=== PATIENT | female | born 1995 | race Caucasian/White ===

== ENCOUNTER 2017-02-21 04:57 | Emergency (ER) | payer BC ==
[2017-02-21 05:06] VITALS: TEMP 98.1
[2017-02-21] MEDS ORDERED: SODIUM CHLORIDE 0.9% 1,000 ML IV STA (05:23)
[2017-02-21] MEDS ORDERED: FAMOTIDINE 20 MG/2 ML VIAL IV STA (05:23)
--- NOTE | 2017-02-21 05:27 | ED ---
General Adult HPI - General Chief complaint: Chest Pain Stated complaint: Abdominal pain, chest pain Time Seen by Provider: 02/21/17 05:19 Source: patient, RN notes reviewed Mode of arrival: ambulatory Limitations: no limitations - History of Present Illness Initial comments: Patient is a pleasant 21-year-old female presenting to the emergency Department with palpitations and chest and abdominal discomfort. Symptoms have been waxing and waning for the past 3 days. Symptoms are mild at this time. Patient does feel her heart racing at times. Patient states sometimes this lasted couple hours. Patient has chest discomfort in her left upper chest that is also intermittent. Discomfort mild at this time. Patient has diffuse abdominal discomfort that has also been waxing and waning and is also mild at this time. No nausea vomiting. No fever. No constipation or diarrhea. No history of similar symptoms previously. - Related Data Home Medications Medication Instructions Recorded Confirmed Norgestimate-Ethinyl Estradiol 1 tab PO DAILY 05/09/15 05/09/15 [Sprintec 28 Day Tablet] Allergies Allergy/AdvReac Type Severity Reaction Status Date / Time latex Allergy Rash/Hives Verified 02/21/17 05:06 Review of Systems ROS Statement: Those systems with pertinent positive or pertinent negative responses have been documented in the HPI. ROS Other: All systems not noted in ROS Statement are negative. Constitutional: Denies: fever Eyes: Denies: eye pain ENT: Denies: ear pain Respiratory: Denies: cough, dyspnea Cardiovascular: Reports: chest pain Endocrine: Denies: fatigue Gastrointestinal: Reports: abdominal pain. Denies: nausea, vomiting Genitourinary: Denies: dysuria Musculoskeletal: Denies: back pain Skin: Denies: rash Neurological: Denies: weakness Past Medical History Past Medical History: No Reported History History of Any Multi-Drug Resistant Organisms: None Reported Past Surgical History: No Surgical Hx Reported Past Psychological History: Anxiety, Depression Smoking Status: Former smoker Past Alcohol Use History: None Reported Past Drug Use History: None Reported General Exam Limitations: no limitations General appearance: alert, in no apparent distress Head exam: Present: atraumatic Eye exam: Present: normal appearance, PERRL ENT exam: Present: normal oropharynx Neck exam: Present: normal inspection Respiratory exam: Present: normal lung sounds bilaterally Cardiovascular Exam: Present: regular rate, normal rhythm Expanded Peripheral pulses: 2+: Radial (R), Radial (L), Dorsalis Pedis (R), Dorsalis Pedis (L) GI/Abdominal exam: Present: soft, tenderness (Mild diffuse tenderness to palpation), normal bowel sounds. Absent: distended, guarding, rebound, rigid, pulsatile mass Expanded GI/Abdominal exam: Absent: obturator sign Extremities exam: Present: normal inspection Neurological exam: Present: alert Psychiatric exam: Present: normal affect, normal mood Skin exam: Present: normal color Course Vital Signs 02/21/17 05:02 Temperature 98.1 F Pulse Rate 75 Respiratory 18 Rate Blood Pressure 118/76 O2 Sat by Pulse 100 Oximetry EKG Findings - EKG Comments: EKG Findings:: Normal sinus rhythm at 76. AR 134. QRS 112. QT 352. QTc 396. Normal axis. Normal QRS. No acute ST change. Medical Decision Making - Medical Decision Making Patient reexamined and resting comfortably in bed. No discomfort at this time. Abdomen is soft and nontender. Patient updated on results and need for follow -up. - Lab Data Result diagrams: 02/21/17 05:29 02/21/17 05:29 Lab Results 02/21/17 02/21/17 02/21/17 Range/Units 05:29 05:29 05:29 WBC 7.8 (4.0-11.0) k/uL RBC 4.32 (3.80-5.40) m/uL Hgb 13.2 (11.4-16.0) gm/dL Hct 39.4 (34.0-46.0) % MCV 91.2 (80.0-100.0) fL MCH 30.5 (25.0-35.0) pg MCHC 33.4 (31.0-37.0) g/dL RDW 12.2 (11.5-15.5) % Plt Count 251 (150-450) k/uL Neutrophils % 62 % Lymphocytes % 30 % Monocytes % 5 % Eosinophils % 1 % Basophils % 0 % Neutrophils # 4.8 (1.3-7.7) k/uL Lymphocytes # 2.3 (1.0-4.8) k/uL Monocytes # 0.4 (0-1.0) k/uL Eosinophils # 0.1 (0-0.7) k/uL Basophils # 0.0 (0-0.2) k/uL Sodium 141 (137-145) mmol/L Potassium 4.0 (3.5-5.1) mmol/L Chloride 104 (98-107) mmol/L Carbon Dioxide 26 (22-30) mmol/L Anion Gap 11 mmol/L BUN 20 H (7-17) mg/dL Creatinine 0.90 (0.52-1.04) mg/dL Est GFR (MDRD) Af Amer >60 (>60 ml/min/1.73 sqM) Est GFR (MDRD) Non-Af >60 (>60 ml/min/1.73 sqM) Glucose 98 (74-99) mg/dL Calcium 9.3 (8.4-10.2) mg/dL Total Bilirubin 0.2 (0.2-1.3) mg/dL AST 16 (14-36) U/L ALT 29 (9-52) U/L Alkaline Phosphatase 50 (38-126) U/L Total Creatine Kinase 64 (30-135) U/L CK-MB (CK-2) 0.3 (0.0-2.4) ng/mL CK-MB (CK-2) Rel Index 0.5 Troponin I <0.012 (0.000-0.034) ng/mL Total Protein 6.9 (6.3-8.2) g/dL Albumin 4.3 (3.5-5.0) g/dL Amylase 94 (30-110) U/L Lipase 130 (23-300) U/L Urine Color Urine Appearance (Clear) Urine pH (5.0-8.0) Ur Specific [place] (1.001-1.035) Urine Protein (Negative) Urine Glucose (UA) (Negative) Urine Ketones (Negative) Urine Blood (Negative) Urine Nitrite (Negative) Urine Bilirubin (Negative) Urine Urobilinogen (<2.0) mg/dL Ur Leukocyte Esterase (Negative) Urine RBC (0-5) /hpf Urine WBC (0-5) /hpf Ur Squamous Epith Cells (0-4) /hpf Urine Bacteria (None) /hpf Urine Mucus (None) /hpf Urine HCG, Qual (Not Detectd) 02/21/17 02/21/17 Range/Units 05:29 05:29 WBC (4.0-11.0) k/uL RBC (3.80-5.40) m/uL Hgb (11.4-16.0) gm/dL Hct (34.0-46.0) % MCV (80.0-100.0) fL MCH (25.0-35.0) pg MCHC (31.0-37.0) g/dL RDW (11.5-15.5) % Plt Count (150-450) k/uL Neutrophils % % Lymphocytes % % Monocytes % % Eosinophils % % Basophils % % Neutrophils # (1.3-7.7) k/uL Lymphocytes # (1.0-4.8) k/uL Monocytes # (0-1.0) k/uL Eosinophils # (0-0.7) k/uL Basophils # (0-0.2) k/uL Sodium (137-145) mmol/L Potassium (3.5-5.1) mmol/L Chloride (98-107) mmol/L Carbon Dioxide (22-30) mmol/L Anion Gap mmol/L BUN (7-17) mg/dL Creatinine (0.52-1.04) mg/dL Est GFR (MDRD) Af Amer (>60 ml/min/1.73 sqM) Est GFR (MDRD) Non-Af (>60 ml/min/1.73 sqM) Glucose (74-99) mg/dL Calcium (8.4-10.2) mg/dL Total Bilirubin (0.2-1.3) mg/dL AST (14-36) U/L ALT (9-52) U/L Alkaline Phosphatase (38-126) U/L Total Creatine Kinase (30-135) U/L CK-MB (CK-2) (0.0-2.4) ng/mL CK-MB (CK-2) Rel Index Troponin I (0.000-0.034) ng/mL Total Protein (6.3-8.2) g/dL Albumin (3.5-5.0) g/dL Amylase (30-110) U/L Lipase (23-300) U/L Urine Color Yellow Urine Appearance Cloudy H (Clear) Urine pH 6.0 (5.0-8.0) Ur Specific [place] 1.026 (1.001-1.035) Urine Protein Trace H (Negative) Urine Glucose (UA) Negative (Negative) Urine Ketones Negative (Negative) Urine Blood Moderate H (Negative) Urine Nitrite Negative (Negative) Urine Bilirubin Negative (Negative) Urine Urobilinogen 2.0 (<2.0) mg/dL Ur Leukocyte Esterase Small H (Negative) Urine RBC 6 H (0-5) /hpf Urine WBC 13 H (0-5) /hpf Ur Squamous Epith Cells 38 H (0-4) /hpf Urine Bacteria Rare H (None) /hpf Urine Mucus Many H (None) /hpf Urine HCG, Qual Not Detected (Not Detectd) - Radiology Data Radiology results: image reviewed (Abdominal x-ray shows some increased stool, nonobstructive. Chest x-ray shows no acute process.) Disposition Clinical Impression: Chest pain, Abdominal pain, Palpitations Disposition: HOME SELF-CARE Condition: Stable Instructions: Abdominal Pain (ED), Chest Pain (ED), Palpitations (ED) Additional Instructions: Please follow-up with your doctor in the next day or 2 for recheck. Return for increased pain, increased heart rate, difficult to breathing, worsening symptoms or other concerns. Referrals: Mariana Bass DO [Primary Care Provider] - 1-2 days Time of Disposition: 06:45
[2017-02-21 05:48] LABS: Basophils % (A) 0 %; Eosinophils # (A) 0.1 k/uL (0-0.7); Eosinophils % (A) 1 %; HCT 39.4 % (34.0-46.0); HGB 13.2 gm/dL (11.4-16.0); Lymphocytes # (A) 2.3 k/uL (1.0-4.8); Lymphocytes % (A) 30 %; MCH 30.5 pg (25.0-35.0); MCHC 33.4 g/dL (31.0-37.0); MCV 91.2 fL (80.0-100.0); Mean Platelet Volume 7.8; Monocytes # (A) 0.4 k/uL (0-1.0); Monocytes % (A) 5 %; Neutrophils # (A) 4.8 k/uL (1.3-7.7); Neutrophils % (A) 62 %; Platelet Count 251 k/uL (150-450); RBC 4.32 m/uL (3.80-5.40); RDW 12.2 % (11.5-15.5); WBC 7.8 k/uL (4.0-11.0)
[2017-02-21 05:52] LABS: Appearance,Urine Cloudy (Clear); Bacteria,Urine Rare /hpf; Bilirubin,Urine Negative (Negative); Blood,Urine Moderate (Negative); Color,Urine Yellow; Glucose,Urine (UA) Negative (Negative); Ketones,Urine Negative (Negative); Leukocyte Esterase,Urine Small (Negative); Mucus,Urine Many /hpf; Nitrite,Urine Negative (Negative); Protein,Urine Trace (Negative); RBC,Urine 6 /hpf (0-5); Specific Gravity,Urine 1.026 (1.001-1.035); Squamous Epithelial Cell,Urine 38 /hpf (0-4); WBC,Urine 13 /hpf (0-5)
[2017-02-21 05:56] LABS: ALT 29 U/L (9-52); AST 16 U/L (14-36); Albumin 4.3 g/dL (3.5-5.0); Alkaline Phosphatase 50 U/L (38-126); Amylase 94 U/L (30-110); Anion Gap 11 mmol/L; Blood Urea Nitrogen 20 mg/dL (7-17); Calcium 9.3 mg/dL (8.4-10.2); Carbon Dioxide 26 mmol/L (22-30); Chloride 104 mmol/L (98-107); Glucose 98 mg/dL (74-99); Lipase 130 U/L (23-300); Sodium 141 mmol/L (137-145); Total Bilirubin 0.2 mg/dL (0.2-1.3); Total Protein 6.9 g/dL (6.3-8.2)
[2017-02-21 06:10] LABS: Creatine Kinase 64 U/L (30-135)
[2017-02-21 06:23] LABS: Creatine Kinase MB 0.3 ng/mL (0.0-2.4); Troponin I <0.012 ng/mL (0.000-0.034)
--- NOTE | 2017-02-21 06:33 | XR ---
EXAM: XR Chest, 2 Views CLINICAL HISTORY: Chest pain. TECHNIQUE: Frontal and lateral views of the chest. COMPARISON: None. FINDINGS: Lungs: Unremarkable. No consolidation. Pleural space: Unremarkable. No pleural effusions. No pneumothorax. Heart: Unremarkable. No cardiomegaly. Mediastinum: Unremarkable. Bones/joints: Unremarkable. IMPRESSION: No acute cardiopulmonary process.
--- NOTE | 2017-02-21 06:35 | XR ---
EXAM: XR Abdomen, 1 View CLINICAL HISTORY: Reason: abdominal pain TECHNIQUE: Frontal supine view of the abdomen/pelvis. COMPARISON: October 29, 2014. FINDINGS: Gastrointestinal tract: No free air. Increased fecal burden in the lower abdomen and pelvis with mild gaseous distention of colon. No radiographic evidence for dilated small bowel loops. Bones/joints: Unremarkable. IMPRESSION: No free air. Increased fecal burden in the lower abdomen and pelvis with gaseous distention of colonic loops. No definite radiographic evidence for small bowel obstruction.
[2017-02-21 06:44] LABS: INR 1.1 (<1.2); Partial Thromboplastin Time 25.1 sec (22.0-30.0)
[2017-02-21 07:20] VITALS: BP 103/80; PULSE 85; RESP 17
== END 2017-02-21 07:20 | disposition home or self-care (01) ==
LOC: EC 04:57
DX: R00.2 Palpitations (principal); R10.9 Unspecified abdominal pain; R07.89 Other chest pain; Z87.891 Personal history of nicotine dependence; Z79.3 Long term (current) use of hormonal contraceptives; Z91.040 Latex allergy status
CPT/HCPCS: 36415; 71046; 74018; 80053; 81001; 81025; 82150; 82550; 82553; 83690; 84484; 85025; 85610; 85730; 93005; 96361; 96374; 99285

== ENCOUNTER 2017-03-25 23:01 | Emergency (ER) | payer BC ==
[2017-03-25] MEDS ORDERED: SODIUM CHLORIDE 0.9% 1,000 ML IV STA (23:13)
[2017-03-25] MEDS ORDERED: RX INFO: IV CONTRAST WAS GIVEN 1 EACH MISC MISCELLANE PRN (23:13)
--- NOTE | 2017-03-25 23:20 | ED ---
General Adult HPI - General Chief complaint: Urogenital Stated complaint: Abdomial Pain Time Seen by Provider: 03/25/17 23:09 Source: patient, RN notes reviewed Mode of arrival: wheelchair Limitations: no limitations - History of Present Illness Initial comments: 21-year-old female presents to the emergency department with a chief complaint of right-sided abdominal pain as well as vaginal discharge. Patient states that she received her doctor shot about 2 weeks ago. Patient states that her pain has been moderate. She states the throbbing type pain. She denies any nausea vomiting any fever chills with this. She denies any cough cold or runny nose. She denies any history of this in the past. They're concerned due to her continued pain so she thought she no surgical history. She does not concern for STDs this time. Patient denies any recent fever, chills, shortness of breath, chest pain, back pain, nausea vomiting, numbness or tingling, dysuria or hematuria, constipation or diarrhea, headaches or visual changes, or any other current symptoms. - Related Data Home Medications Medication Instructions Recorded Confirmed medroxyPROGESTERone [Depo-Provera] 150 mg IM Q90D 03/25/17 03/25/17 Allergies Allergy/AdvReac Type Severity Reaction Status Date / Time latex Allergy Rash/Hives Verified 03/25/17 23:14 Review of Systems ROS Statement: Those systems with pertinent positive or pertinent negative responses have been documented in the HPI. ROS Other: All systems not noted in ROS Statement are negative. Past Medical History Past Medical History: No Reported History History of Any Multi-Drug Resistant Organisms: None Reported Past Surgical History: No Surgical Hx Reported Past Psychological History: Anxiety, Depression Smoking Status: Former smoker Past Alcohol Use History: None Reported Past Drug Use History: None Reported General Exam - General Exam Comments Initial Comments: General: The patient is awake and alert, in no distress, and does not appear acutely ill. Eye: Pupils are equal, round and reactive to light, extra-ocular movements are intact; there is normal conjunctiva bilaterally. No signs of icterus. Ears, nose, mouth and throat: There are moist mucous membranes. Neck: The neck is supple, there is no tenderness. Cardiovascular: There is a regular rate and rhythm. No murmur, rub or gallop is appreciated. Respiratory: Lungs are clear to auscultation, respirations are non-labored, breath sounds are equal. No wheezes, stridor, rales, or rhonchi. Gastrointestinal: Soft, non-distended, non-tender abdomen without masses or organomegaly noted. There is no rebound or guarding present. No CVA tenderness. Bowel sounds are unremarkable. Back: There is no tenderness to palpation in the midline. There is no obvious deformity. No rashes noted. Musculoskeletal: Normal ROM, no tenderness, There is no pedal edema. There is no calf tenderness or swelling. Sensation intact. Pulses equal bilaterally 2+. Neurological: CN II-XII intact, There are no obvious motor or sensory deficits. Coordination appears grossly intact. Speech is normal. Skin: Skin is warm and dry and no rashes or lesions are noted. Psychiatric: Cooperative, appropriate mood & affect, normal judgment. Limitations: no limitations Course Vital Signs 03/25/17 23:03 Temperature 97.4 F L Pulse Rate 79 Respiratory 16 Rate Blood Pressure 127/82 O2 Sat by Pulse 100 Oximetry - Reevaluation(s) Reevaluation #1: 03/25/17 23:34 I did discuss thoroughly that I like to do pelvic exam to further evaluate the patient's discharge the patient refuses neurologist. She states that she does not want to have a pelvic exam and she was seen her own doctor for discharge. She just like her abdominal pain with This time. Medical Decision Making - Medical Decision Making 21-year-old female presents with right-sided abdominal pain. At this time patient's CAT scan is reviewed that does appear to show pancreatic hypertrophy. We discussed needs close follow-up with GI and she is given their information. We also discussed that she is to follow-up with her family care doctor regarding her vaginal discharge to the fact that she would not further evaluate this. Patient stated that she understood. All questions have been answered. She will be discharged. - Lab Data Result diagrams: 03/25/17 23:25 03/25/17 23:25 Lab Results 03/25/17 03/25/17 03/25/17 Range/Units 23:25 23:25 23:25 WBC 8.1 (4.0-11.0) k/uL RBC 4.69 (3.80-5.40) m/uL Hgb 14.4 (11.4-16.0) gm/dL Hct 42.5 (34.0-46.0) % MCV 90.7 (80.0-100.0) fL MCH 30.8 (25.0-35.0) pg MCHC 33.9 (31.0-37.0) g/dL RDW 12.5 (11.5-15.5) % Plt Count 279 (150-450) k/uL Neutrophils % 58 % Lymphocytes % 34 % Monocytes % 4 % Eosinophils % 2 % Basophils % 0 % Neutrophils # 4.7 (1.3-7.7) k/uL Lymphocytes # 2.8 (1.0-4.8) k/uL Monocytes # 0.3 (0-1.0) k/uL Eosinophils # 0.2 (0-0.7) k/uL Basophils # 0.0 (0-0.2) k/uL Sodium 142 (137-145) mmol/L Potassium 4.1 (3.5-5.1) mmol/L Chloride 103 (98-107) mmol/L Carbon Dioxide 25 (22-30) mmol/L Anion Gap 14 mmol/L BUN 14 (7-17) mg/dL Creatinine 0.90 (0.52-1.04) mg/dL Est GFR (MDRD) Af Amer >60 (>60 ml/min/1.73 sqM) Est GFR (MDRD) Non-Af >60 (>60 ml/min/1.73 sqM) Glucose 105 H (74-99) mg/dL Calcium 9.8 (8.4-10.2) mg/dL Total Bilirubin 0.2 (0.2-1.3) mg/dL AST 14 (14-36) U/L ALT 17 (9-52) U/L Alkaline Phosphatase 51 (38-126) U/L Total Protein 7.2 (6.3-8.2) g/dL Albumin 4.5 (3.5-5.0) g/dL Amylase 96 (30-110) U/L Lipase 207 (23-300) U/L Urine Color Urine Appearance (Clear) Urine pH (5.0-8.0) Ur Specific [place] (1.001-1.035) Urine Protein (Negative) Urine Glucose (UA) (Negative) Urine Ketones (Negative) Urine Blood (Negative) Urine Nitrite (Negative) Urine Bilirubin (Negative) Urine Urobilinogen (<2.0) mg/dL Ur Leukocyte Esterase (Negative) Urine RBC (0-5) /hpf Urine WBC (0-5) /hpf Ur Squamous Epith Cells (0-4) /hpf Urine Mucus (None) /hpf Urine HCG, Qual Not Detected (Not Detectd) 03/25/17 Range/Units 23:25 WBC (4.0-11.0) k/uL RBC (3.80-5.40) m/uL Hgb (11.4-16.0) gm/dL Hct (34.0-46.0) % MCV (80.0-100.0) fL MCH (25.0-35.0) pg MCHC (31.0-37.0) g/dL RDW (11.5-15.5) % Plt Count (150-450) k/uL Neutrophils % % Lymphocytes % % Monocytes % % Eosinophils % % Basophils % % Neutrophils # (1.3-7.7) k/uL Lymphocytes # (1.0-4.8) k/uL Monocytes # (0-1.0) k/uL Eosinophils # (0-0.7) k/uL Basophils # (0-0.2) k/uL Sodium (137-145) mmol/L Potassium (3.5-5.1) mmol/L Chloride (98-107) mmol/L Carbon Dioxide (22-30) mmol/L Anion Gap mmol/L BUN (7-17) mg/dL Creatinine (0.52-1.04) mg/dL Est GFR (MDRD) Af Amer (>60 ml/min/1.73 sqM) Est GFR (MDRD) Non-Af (>60 ml/min/1.73 sqM) Glucose (74-99) mg/dL Calcium (8.4-10.2) mg/dL Total Bilirubin (0.2-1.3) mg/dL AST (14-36) U/L ALT (9-52) U/L Alkaline Phosphatase (38-126) U/L Total Protein (6.3-8.2) g/dL Albumin (3.5-5.0) g/dL Amylase (30-110) U/L Lipase (23-300) U/L Urine Color Light Yellow Urine Appearance Clear (Clear) Urine pH 6.5 (5.0-8.0) Ur Specific [place] 1.015 (1.001-1.035) Urine Protein Negative (Negative) Urine Glucose (UA) Negative (Negative) Urine Ketones Negative (Negative) Urine Blood Negative (Negative) Urine Nitrite Negative (Negative) Urine Bilirubin Negative (Negative) Urine Urobilinogen <2.0 (<2.0) mg/dL Ur Leukocyte Esterase Moderate H (Negative) Urine RBC 2 (0-5) /hpf Urine WBC 7 H (0-5) /hpf Ur Squamous Epith Cells 5 H (0-4) /hpf Urine Mucus Rare H (None) /hpf Urine HCG, Qual (Not Detectd) - Radiology Data Radiology results: report reviewed, image reviewed Disposition Clinical Impression: Pancreatic hypertrophy, Vaginal discharge Disposition: HOME SELF-CARE Condition: Stable Instructions: Abdominal Pain (ED) Additional Instructions: Please use medication as discussed. Please follow up with family doctor if symptoms have not improved over the next two days. Please return to the emergency room if your symptoms increase or worsen or for any other concerns. Referrals: Mariana Bass DO [Primary Care Provider] - 1-2 days Christian Leonard MD [STAFF PHYSICIAN] - 1-2 days Time of Disposition: 00:46
[2017-03-25 23:34] LABS: Basophils % (A) 0 %; Eosinophils # (A) 0.2 k/uL (0-0.7); Eosinophils % (A) 2 %; HCT 42.5 % (34.0-46.0); HGB 14.4 gm/dL (11.4-16.0); Lymphocytes # (A) 2.8 k/uL (1.0-4.8); Lymphocytes % (A) 34 %; MCH 30.8 pg (25.0-35.0); MCHC 33.9 g/dL (31.0-37.0); MCV 90.7 fL (80.0-100.0); Mean Platelet Volume 7.3; Monocytes # (A) 0.3 k/uL (0-1.0); Monocytes % (A) 4 %; Neutrophils # (A) 4.7 k/uL (1.3-7.7); Neutrophils % (A) 58 %; Platelet Count 279 k/uL (150-450); RBC 4.69 m/uL (3.80-5.40); RDW 12.5 % (11.5-15.5); WBC 8.1 k/uL (4.0-11.0)
[2017-03-25 23:41] LABS: Appearance,Urine Clear (Clear); Bilirubin,Urine Negative (Negative); Blood,Urine Negative (Negative); Color,Urine Light Yellow; Glucose,Urine (UA) Negative (Negative); Ketones,Urine Negative (Negative); Leukocyte Esterase,Urine Moderate (Negative); Mucus,Urine Rare /hpf; Nitrite,Urine Negative (Negative); PH, Urine 6.5 (5.0-8.0); Protein,Urine Negative (Negative); RBC,Urine 2 /hpf (0-5); Specific Gravity,Urine 1.015 (1.001-1.035); Squamous Epithelial Cell,Urine 5 /hpf (0-4); Urobilinogen,Urine <2.0 mg/dL (<2.0); WBC,Urine 7 /hpf (0-5)
[2017-03-25 23:48] LABS: ALT 17 U/L (9-52); AST 14 U/L (14-36); Albumin 4.5 g/dL (3.5-5.0); Alkaline Phosphatase 51 U/L (38-126); Amylase 96 U/L (30-110); Anion Gap 14 mmol/L; Blood Urea Nitrogen 14 mg/dL (7-17); Calcium 9.8 mg/dL (8.4-10.2); Carbon Dioxide 25 mmol/L (22-30); Chloride 103 mmol/L (98-107); Glucose 105 mg/dL (74-99); Lipase 207 U/L (23-300); Potassium 4.1 mmol/L (3.5-5.1); Sodium 142 mmol/L (137-145); Total Bilirubin 0.2 mg/dL (0.2-1.3); Total Protein 7.2 g/dL (6.3-8.2)
--- NOTE | 2017-03-26 00:26 | CT ---
EXAMINATION TYPE: CT abdomen pelvis wo con DATE OF EXAM: 03/26/2017 COMPARISON: NONE HISTORY: Right flank pain CT DLP: 230.10 mGycm Automated exposure control for dose reduction was used. TECHNIQUE: Helical acquisition of images was performed from the lung bases through the pelvis. Lung bases are clear. There is no pleural effusion. Heart size is normal. Liver and spleen appear normal. There appears to be some hypertrophy of the pancreas. I see no discre te pancreatic mass. Exam is limited by lack of IV contrast. Bile ducts are not dilated. There is no adrenal mass. Kidneys have normal size and contour. There is no hydronephrosis. There is no retroperitoneal adenopathy. There is no ascites. Appendix is not seen. There is no sign of appendi citis. I see no intestinal wall thickening. There are no dilated loops. Uterus is retroverted. There is no s ign of free air. Bladder distends smoothly. There is no sign of a pelvic mass. Bony structures are in tact. IMPRESSION: PANCREAS IS PROMINENT AND PROBABLY DUE TO HYPERTROPHY. NO DILATED DUCTS. NO EVIDENCE OF RENAL STONE O R OBSTRUCTION. I DO NOT SEE A CAUSE FOR RIGHT FLANK PAIN.
[2017-03-26 00:45] VITALS: BP 111/52; PULSE 77; RESP 18; TEMP 98.1
== END 2017-03-26 00:54 | disposition home or self-care (01) ==
LOC: EC 23:01
DX: Q45.3 Other congenital malformations of pancreas and pancreatic duct (principal); N89.8 Other specified noninflammatory disorders of vagina; R10.9 Unspecified abdominal pain; Z87.891 Personal history of nicotine dependence; Z79.3 Long term (current) use of hormonal contraceptives; Z91.040 Latex allergy status
CPT/HCPCS: 36415; 74176; 80053; 81001; 81025; 82150; 83690; 85025; 87086; 96360; 99284

== ENCOUNTER 2017-04-07 17:11 | Emergency (ER) | payer BC ==
[2017-04-07 17:18] VITALS: RESP 18
[2017-04-07] MEDS ORDERED: FAMOTIDINE 20 MG/2 ML VIAL IV STA (17:26)
[2017-04-07] MEDS ORDERED: SODIUM CHLORIDE 0.9% 1,000 ML IV STA (17:26)
[2017-04-07] MEDS ORDERED: ONDANSETRON 4 MG/2 ML VIAL IVP STA (17:26)
--- NOTE | 2017-04-07 17:38 | ED ---
General Adult HPI - General Chief complaint: Abdominal Pain Stated complaint: Hx PANCREATITIS FEVER, NAUSEA, VOMITING, DIZZINESS Time Seen by Provider: 04/07/17 17:20 Source: patient, RN notes reviewed Mode of arrival: ambulatory Limitations: no limitations - History of Present Illness Initial comments: Patient's a 21-year-old female who presents to the emergency room today with a chief complaint of abdominal pain with nausea vomiting. Patient does admit that she has had some similar symptoms in the past and is scheduled to see Dr. Chacko for this. Patient does admit that symptoms started again yesterday. She admits that she's felt nauseated. She does admit that she's had increased bowel movements but they are normal. She admits to pain located on the right side of the abdomen both in the upper and lower quadrants. Patient does admit that she was seen recently here in the emergency room and had a CAT scan obtained approximately 3 weeks ago. She states she was told that she had a enlarged pancreas at the time. Patient denies any other complaints or symptoms currently. Patient denies any recent fever, chills, shortness of breath, chest pain, back pain, numbness or tingling, dysuria or hematuria, constipation or diarrhea, headaches or visual changes, or any other complaints. - Related Data Home Medications Medication Instructions Recorded Confirmed medroxyPROGESTERone [Depo-Provera] 150 mg IM Q90D 03/25/17 04/07/17 Clindamycin/Benzoyl Perox Wipe 1 applic TOPICAL DAILY 04/07/17 04/07/17 Previous Rx's Medication Instructions Recorded Omeprazole 20 mg PO DAILY #20 capsule. 04/07/17 Allergies Allergy/AdvReac Type Severity Reaction Status Date / Time latex Allergy Rash/Hives Verified 04/07/17 17:53 Review of Systems ROS Statement: Those systems with pertinent positive or pertinent negative responses have been documented in the HPI. ROS Other: All systems not noted in ROS Statement are negative. Past Medical History Past Medical History: No Reported History History of Any Multi-Drug Resistant Organisms: None Reported Past Surgical History: No Surgical Hx Reported Past Psychological History: Anxiety, Depression Smoking Status: Former smoker Past Alcohol Use History: None Reported Past Drug Use History: None Reported General Exam - General Exam Comments Initial Comments: General: The patient is awake and alert, in no distress, and does not appear acutely ill. Eye: Pupils are equal, round and reactive to light, extra-ocular movements are intact. No nystagmus. There is normal conjunctiva bilaterally. No signs of icterus. Ears, nose, mouth and throat: There are moist mucous membranes and no oral lesions. Neck: The neck is supple, there is no tenderness or JVD. Cardiovascular: There is a regular rate and rhythm. No murmur, rub or gallop is appreciated. Respiratory: Lungs are clear to auscultation, respirations are non-labored, breath sounds are equal. No wheezes, stridor, rales, or rhonchi. Gastrointestinal: Normal. Exam. Normal bowel sounds. Abdomen soft on palpation. Patient does have tenderness in epigastric and right upper quadrants. No tenderness in the right lower quadrant. No rebound tenderness. No CVA tenderness. Musculoskeletal: Normal ROM, no tenderness. Strength 5/5. Sensation intact. Pulses equal bilaterally 2+. Neurological: A&O x 3. CN II-XII intact, There are no obvious motor or sensory deficits. Coordination appears grossly intact. Speech is normal. Skin: Skin is warm and dry and no rashes or lesions are noted. Psychiatric: Cooperative, appropriate mood & affect, normal judgment. Limitations: no limitations Course Vital Signs 04/07/17 17:14 Temperature 97.5 F L Pulse Rate 76 Respiratory 18 Rate Blood Pressure 118/79 O2 Sat by Pulse 100 Oximetry Medical Decision Making - Medical Decision Making Patient's labs been reviewed are unremarkable. She is resting comfortably in the emergency room no signs of distress. Her abdomen was soft on palpation. She is feeling better here in the emergency room. Patient's ultrasound of the right upper quadrant is negative for any acute abnormality. Patient does have an appointment with the GI specialist to follow-up in 2 weeks. She started taking any medications. At this time she'll be given a prescription for omeprazole to see if this improves her symptoms. Advised follow-up with GI. Return here to the emergency room symptoms increase or worsen or for any other concerns. Patient states understanding and is in agreement. - Lab Data Result diagrams: 04/07/17 17:33 04/07/17 17:33 Lab Results 04/07/17 04/07/17 04/07/17 Range/Units 17:33 17:33 17:33 WBC 8.3 (4.0-11.0) k/uL RBC 4.66 (3.80-5.40) m/uL Hgb 14.0 (11.4-16.0) gm/dL Hct 41.5 (34.0-46.0) % MCV 89.0 (80.0-100.0) fL MCH 30.0 (25.0-35.0) pg MCHC 33.8 (31.0-37.0) g/dL RDW 12.6 (11.5-15.5) % Plt Count 278 (150-450) k/uL Neutrophils % 79 % Lymphocytes % 16 % Monocytes % 3 % Eosinophils % 1 % Basophils % 0 % Neutrophils # 6.6 (1.3-7.7) k/uL Lymphocytes # 1.4 (1.0-4.8) k/uL Monocytes # 0.2 (0-1.0) k/uL Eosinophils # 0.1 (0-0.7) k/uL Basophils # 0.0 (0-0.2) k/uL Sodium 142 (137-145) mmol/L Potassium 4.1 (3.5-5.1) mmol/L Chloride 106 (98-107) mmol/L Carbon Dioxide 23 (22-30) mmol/L Anion Gap 13 mmol/L BUN 12 (7-17) mg/dL Creatinine 0.80 (0.52-1.04) mg/dL Est GFR (MDRD) Af Amer >60 (>60 ml/min/1.73 sqM) Est GFR (MDRD) Non-Af >60 (>60 ml/min/1.73 sqM) Glucose 97 (74-99) mg/dL Plasma Lactic Acid Kw[place]wo (0.7-2.0) mmol/L Calcium 10.1 (8.4-10.2) mg/dL Total Bilirubin 0.4 (0.2-1.3) mg/dL AST 18 (14-36) U/L ALT 22 (9-52) U/L Alkaline Phosphatase 60 (38-126) U/L Total Protein 7.8 (6.3-8.2) g/dL Albumin 4.8 (3.5-5.0) g/dL Amylase 94 (30-110) U/L Lipase 118 (23-300) U/L Urine Color Urine Appearance (Clear) Urine pH (5.0-8.0) Ur Specific [place] (1.001-1.035) Urine Protein (Negative) Urine Glucose (UA) (Negative) Urine Ketones (Negative) Urine Blood (Negative) Urine Nitrite (Negative) Urine Bilirubin (Negative) Urine Urobilinogen (<2.0) mg/dL Ur Leukocyte Esterase (Negative) Urine HCG, Qual Not Detected (Not Detectd) 04/07/17 04/07/17 Range/Units 17:33 17:33 WBC (4.0-11.0) k/uL RBC (3.80-5.40) m/uL Hgb (11.4-16.0) gm/dL Hct (34.0-46.0) % MCV (80.0-100.0) fL MCH (25.0-35.0) pg MCHC (31.0-37.0) g/dL RDW (11.5-15.5) % Plt Count (150-450) k/uL Neutrophils % % Lymphocytes % % Monocytes % % Eosinophils % % Basophils % % Neutrophils # (1.3-7.7) k/uL Lymphocytes # (1.0-4.8) k/uL Monocytes # (0-1.0) k/uL Eosinophils # (0-0.7) k/uL Basophils # (0-0.2) k/uL Sodium (137-145) mmol/L Potassium (3.5-5.1) mmol/L Chloride (98-107) mmol/L Carbon Dioxide (22-30) mmol/L Anion Gap mmol/L BUN (7-17) mg/dL Creatinine (0.52-1.04) mg/dL Est GFR (MDRD) Af Amer (>60 ml/min/1.73 sqM) Est GFR (MDRD) Non-Af (>60 ml/min/1.73 sqM) Glucose (74-99) mg/dL Plasma Lactic Acid [place] 1.0 (0.7-2.0) mmol/L Calcium (8.4-10.2) mg/dL Total Bilirubin (0.2-1.3) mg/dL AST (14-36) U/L ALT (9-52) U/L Alkaline Phosphatase (38-126) U/L Total Protein (6.3-8.2) g/dL Albumin (3.5-5.0) g/dL Amylase (30-110) U/L Lipase (23-300) U/L Urine Color Colorless Urine Appearance Clear (Clear) Urine pH 6.0 (5.0-8.0) Ur Specific [place] 1.003 (1.001-1.035) Urine Protein Negative (Negative) Urine Glucose (UA) Negative (Negative) Urine Ketones Negative (Negative) Urine Blood Negative (Negative) Urine Nitrite Negative (Negative) Urine Bilirubin Negative (Negative) Urine Urobilinogen <2.0 (<2.0) mg/dL Ur Leukocyte Esterase Negative (Negative) Urine HCG, Qual (Not Detectd) Disposition Clinical Impression: Abdominal pain Disposition: HOME SELF-CARE Condition: Good Instructions: Abdominal Pain (ED) Additional Instructions: Please use medication as discussed. Please follow-up with family doctor in the next 2 days of symptoms have not improved. Please return to emergency room if the symptoms increase or worsen or for any other concerns. Prescriptions: Omeprazole 20 mg PO DAILY #20 capsule. Referrals: Mariana Bass DO [Primary Care Provider] - 1-2 days Time of Disposition: 19:16
[2017-04-07 18:01] LABS: Basophils % (A) 0 %; Eosinophils # (A) 0.1 k/uL (0-0.7); Eosinophils % (A) 1 %; HCT 41.5 % (34.0-46.0); Lymphocytes # (A) 1.4 k/uL (1.0-4.8); Lymphocytes % (A) 16 %; MCHC 33.8 g/dL (31.0-37.0); Mean Platelet Volume 7.5; Monocytes # (A) 0.2 k/uL (0-1.0); Monocytes % (A) 3 %; Neutrophils # (A) 6.6 k/uL (1.3-7.7); Neutrophils % (A) 79 %; Platelet Count 278 k/uL (150-450); RBC 4.66 m/uL (3.80-5.40); RDW 12.6 % (11.5-15.5); WBC 8.3 k/uL (4.0-11.0)
[2017-04-07 18:02] LABS: Appearance,Urine Clear (Clear); Bilirubin,Urine Negative (Negative); Blood,Urine Negative (Negative); Color,Urine Colorless; Glucose,Urine (UA) Negative (Negative); Ketones,Urine Negative (Negative); Leukocyte Esterase,Urine Negative (Negative); Protein,Urine Negative (Negative); Specific Gravity,Urine 1.003 (1.001-1.035); Urobilinogen,Urine <2.0 mg/dL (<2.0)
[2017-04-07 18:07] LABS: ALT 22 U/L (9-52); AST 18 U/L (14-36); Albumin 4.8 g/dL (3.5-5.0); Alkaline Phosphatase 60 U/L (38-126); Amylase 94 U/L (30-110); Anion Gap 13 mmol/L; Blood Urea Nitrogen 12 mg/dL (7-17); Calcium 10.1 mg/dL (8.4-10.2); Carbon Dioxide 23 mmol/L (22-30); Chloride 106 mmol/L (98-107); Glucose 97 mg/dL (74-99); Lipase 118 U/L (23-300); Potassium 4.1 mmol/L (3.5-5.1); Sodium 142 mmol/L (137-145); Total Bilirubin 0.4 mg/dL (0.2-1.3); Total Protein 7.8 g/dL (6.3-8.2)
--- NOTE | 2017-04-07 19:10 | US ---
EXAMINATION TYPE: US abdomen limited DATE OF EXAM: 04/07/2017 COMPARISON: NONE CLINICAL HISTORY: Pain. EXAM MEASUREMENTS: Liver Length: 12.4 cm Gallbladder Wall: 0.2 cm CBD: 0.2 cm Right Kidney: 10.4 x 3.6 x 5.0 cm Pancreas: wnl Liver: wnl Gallbladder: wnl Evidence for sonographic Honeycutt's sign: No CBD: wnl Right Kidney: No hydronephrosis or masses seen IMPRESSION: 1. Normal right upper quadrant ultrasound
[2017-04-07 19:50] VITALS: BP 113/71; PULSE 74; TEMP 99.1
== END 2017-04-07 19:49 | disposition home or self-care (01) ==
LOC: EC 17:11
DX: R10.31 Right lower quadrant pain (principal); R10.11 Right upper quadrant pain; R11.2 Nausea with vomiting, unspecified; Z87.891 Personal history of nicotine dependence; Z79.3 Long term (current) use of hormonal contraceptives; Z91.040 Latex allergy status; Z87.19 Personal history of other diseases of the digestive system
CPT/HCPCS: 36415; 80053; 82150; 83605; 83690; 85025; 81003; 81025; 76705; 99284; 96374; 96375; 96361; J2405

== ENCOUNTER 2017-07-20 18:28 | Emergency (ER) | payer BC ==
[2017-07-20 18:40] VITALS: RESP 18
[2017-07-20] MEDS ORDERED: SODIUM CHLORIDE 0.9% 2,000 ML IV STA (19:01)
[2017-07-20] MEDS ORDERED: ONDANSETRON 4 MG/2 ML VIAL IVP STA (19:14)
--- NOTE | 2017-07-20 19:33 | ED ---
Abdominal Pain HPI - General Chief Complaint: Abdominal Pain Stated Complaint: pancreatitis flare, dizziness and blurry vision Time Seen by Provider: 07/20/17 19:00 Source: patient, RN notes reviewed Mode of arrival: ambulatory Limitations: no limitations - History of Present Illness Initial Comments: This is a 22-year-old female presents emergency Department with chief complaint of abdominal discomfort. She states that she has had some increasing discomfort in her mid lower abdominal last few days. She has been told the past that her pancreas is was enlarged but had no official diagnosis of pancreatitis. Patient states that she no follow-up. She was to some intermittent nausea no vomiting no diarrhea no constipation. She does have some urinary frequency with no dysuria. Patient denies any chance . Denies any flank pain. Patient denies any fever, chills, chest pain, shortness breath - Related Data Home Medications Medication Instructions Recorded Confirmed medroxyPROGESTERone [Depo-Provera] 150 mg IM Q90D 03/25/17 07/20/17 Previous Rx's Medication Instructions Recorded Ciprofloxacin HCl [Cipro] 500 mg PO Q12HR #10 tablet 07/20/17 Allergies Allergy/AdvReac Type Severity Reaction Status Date / Time latex Allergy Rash/Hives Verified 07/20/17 19:04 Review of Systems ROS Statement: Those systems with pertinent positive or pertinent negative responses have been documented in the HPI. ROS Other: All systems not noted in ROS Statement are negative. Past Medical History Past Medical History: No Reported History Additional Past Medical History / Comment(s): pancreatis History of Any Multi-Drug Resistant Organisms: None Reported Past Surgical History: No Surgical Hx Reported Past Psychological History: Anxiety, Depression Smoking Status: Former smoker Past Alcohol Use History: None Reported Past Drug Use History: None Reported General Exam Limitations: no limitations General appearance: alert, in no apparent distress Head exam: Present: atraumatic, normocephalic, normal inspection Eye exam: Present: normal appearance, PERRL, EOMI. Absent: scleral icterus, conjunctival injection, periorbital swelling ENT exam: Present: normal exam, normal oropharynx, mucous membranes moist Neck exam: Present: normal inspection, full ROM. Absent: tenderness, meningismus, lymphadenopathy Respiratory exam: Present: normal lung sounds bilaterally. Absent: respiratory distress, wheezes, rales, rhonchi, stridor Cardiovascular Exam: Present: regular rate, normal rhythm, normal heart sounds. Absent: systolic murmur, diastolic murmur, rubs, gallop, clicks GI/Abdominal exam: Present: soft, tenderness (Mild periumbilical and lower abdominal tenderness), normal bowel sounds. Absent: distended, guarding, rebound, rigid Back exam: Absent: CVA tenderness (R), CVA tenderness (L) Skin exam: Present: warm, dry, intact, normal color. Absent: rash Course Vital Signs 07/20/17 18:38 Temperature 97.4 F L Pulse Rate 88 Respiratory 18 Rate Blood Pressure 117/77 O2 Sat by Pulse 100 Oximetry Medical Decision Making - Medical Decision Making 22-year-old female presents emergency from chief complaint lower abdominal pain. Patient's had lab work urinalysis. Patient's laboratory unremarkable. Patient does some WBCs in her urine along with urine bacteria urine mucus. There is some contaminant he also concern for urinary tract infection. Patient' s urine will be cultured patient starting antibiotics and follow-up. Patient has chronic issues with abdominal pain. Patient will follow patient with dr umanzor - Lab Data Result diagrams: 07/20/17 19:25 07/20/17 19:25 Lab Results 07/20/17 07/20/17 07/20/17 Range/Units 19:25 19:25 19:25 WBC 6.1 (4.0-11.0) k/uL RBC 4.50 (3.80-5.40) m/uL Hgb 13.2 (11.4-16.0) gm/dL Hct 40.8 (34.0-46.0) % MCV 90.7 (80.0-100.0) fL MCH 29.4 (25.0-35.0) pg MCHC 32.4 (31.0-37.0) g/dL RDW 12.9 (11.5-15.5) % Plt Count 235 (150-450) k/uL Neutrophils % 63 % Lymphocytes % 29 % Monocytes % 5 % Eosinophils % 1 % Basophils % 0 % Neutrophils # 3.8 (1.3-7.7) k/uL Lymphocytes # 1.8 (1.0-4.8) k/uL Monocytes # 0.3 (0-1.0) k/uL Eosinophils # 0.1 (0-0.7) k/uL Basophils # 0.0 (0-0.2) k/uL Sodium 141 (137-145) mmol/L Potassium 4.6 (3.5-5.1) mmol/L Chloride 103 (98-107) mmol/L Carbon Dioxide 29 (22-30) mmol/L Anion Gap 9 mmol/L BUN 16 (7-17) mg/dL Creatinine 0.72 (0.52-1.04) mg/dL Est GFR (CKD-EPI)AfAm >90 (>60 ml/min/1.73 sqM) Est GFR (CKD-EPI)NonAf >90 (>60 ml/min/1.73 sqM) Glucose 87 (74-99) mg/dL Calcium 9.0 (8.4-10.2) mg/dL Total Bilirubin 0.2 (0.2-1.3) mg/dL AST 22 (14-36) U/L ALT 27 (9-52) U/L Alkaline Phosphatase 48 (38-126) U/L Total Protein 6.7 (6.3-8.2) g/dL Albumin 4.4 (3.5-5.0) g/dL Amylase 81 (30-110) U/L Lipase 115 (23-300) U/L Urine Color Urine Appearance (Clear) Urine pH (5.0-8.0) Ur Specific [place] (1.001-1.035) Urine Protein (Negative) Urine Glucose (UA) (Negative) Urine Ketones (Negative) Urine Blood (Negative) Urine Nitrite (Negative) Urine Bilirubin (Negative) Urine Urobilinogen (<2.0) mg/dL Ur Leukocyte Esterase (Negative) Urine RBC (0-5) /hpf Urine WBC (0-5) /hpf Ur Squamous Epith Cells (0-4) /hpf Urine Bacteria (None) /hpf Urine Mucus (None) /hpf Urine HCG, Qual Not Detected (Not Detectd) 07/20/17 Range/Units 19:25 WBC (4.0-11.0) k/uL RBC (3.80-5.40) m/uL Hgb (11.4-16.0) gm/dL Hct (34.0-46.0) % MCV (80.0-100.0) fL MCH (25.0-35.0) pg MCHC (31.0-37.0) g/dL RDW (11.5-15.5) % Plt Count (150-450) k/uL Neutrophils % % Lymphocytes % % Monocytes % % Eosinophils % % Basophils % % Neutrophils # (1.3-7.7) k/uL Lymphocytes # (1.0-4.8) k/uL Monocytes # (0-1.0) k/uL Eosinophils # (0-0.7) k/uL Basophils # (0-0.2) k/uL Sodium (137-145) mmol/L Potassium (3.5-5.1) mmol/L Chloride (98-107) mmol/L Carbon Dioxide (22-30) mmol/L Anion Gap mmol/L BUN (7-17) mg/dL Creatinine (0.52-1.04) mg/dL Est GFR (CKD-EPI)AfAm (>60 ml/min/1.73 sqM) Est GFR (CKD-EPI)NonAf (>60 ml/min/1.73 sqM) Glucose (74-99) mg/dL Calcium (8.4-10.2) mg/dL Total Bilirubin (0.2-1.3) mg/dL AST (14-36) U/L ALT (9-52) U/L Alkaline Phosphatase (38-126) U/L Total Protein (6.3-8.2) g/dL Albumin (3.5-5.0) g/dL Amylase (30-110) U/L Lipase (23-300) U/L Urine Color Yellow Urine Appearance Cloudy H (Clear) Urine pH 7.0 (5.0-8.0) Ur Specific [place] 1.022 (1.001-1.035) Urine Protein Negative (Negative) Urine Glucose (UA) Negative (Negative) Urine Ketones Negative (Negative) Urine Blood Negative (Negative) Urine Nitrite Negative (Negative) Urine Bilirubin Negative (Negative) Urine Urobilinogen 2.0 (<2.0) mg/dL Ur Leukocyte Esterase Small H (Negative) Urine RBC 3 (0-5) /hpf Urine WBC 7 H (0-5) /hpf Ur Squamous Epith Cells 13 H (0-4) /hpf Urine Bacteria Rare H (None) /hpf Urine Mucus Rare H (None) /hpf Urine HCG, Qual (Not Detectd) Disposition Clinical Impression: Abdominal pain, UTI (urinary tract infection) Disposition: HOME SELF-CARE Condition: Stable Instructions: Abdominal Pain (ED) Additional Instructions: Please return to the Emergency Department if symptoms worsen or any other concerns. Prescriptions: Ciprofloxacin HCl [Cipro] 500 mg PO Q12HR #10 tablet Is patient prescribed a controlled substance at d/c from ED?: No Referrals: Mariana Bass DO [Primary Care Provider] - 1-2 days Christian Umanzor MD [STAFF PHYSICIAN] - 1-2 days Time of Disposition: 20:29
[2017-07-20 19:37] LABS: Basophils % (A) 0 %; Eosinophils # (A) 0.1 k/uL (0-0.7); Eosinophils % (A) 1 %; HCT 40.8 % (34.0-46.0); HGB 13.2 gm/dL (11.4-16.0); Lymphocytes # (A) 1.8 k/uL (1.0-4.8); Lymphocytes % (A) 29 %; MCH 29.4 pg (25.0-35.0); MCHC 32.4 g/dL (31.0-37.0); MCV 90.7 fL (80.0-100.0); Mean Platelet Volume 8.1; Monocytes # (A) 0.3 k/uL (0-1.0); Monocytes % (A) 5 %; Neutrophils # (A) 3.8 k/uL (1.3-7.7); Neutrophils % (A) 63 %; Platelet Count 235 k/uL (150-450); RDW 12.9 % (11.5-15.5); WBC 6.1 k/uL (4.0-11.0)
[2017-07-20 19:41] LABS: Appearance,Urine Cloudy (Clear); Bacteria,Urine Rare /hpf; Bilirubin,Urine Negative (Negative); Blood,Urine Negative (Negative); Color,Urine Yellow; Glucose,Urine (UA) Negative (Negative); Ketones,Urine Negative (Negative); Leukocyte Esterase,Urine Small (Negative); Mucus,Urine Rare /hpf; Nitrite,Urine Negative (Negative); Protein,Urine Negative (Negative); RBC,Urine 3 /hpf (0-5); Specific Gravity,Urine 1.022 (1.001-1.035); Squamous Epithelial Cell,Urine 13 /hpf (0-4); WBC,Urine 7 /hpf (0-5)
[2017-07-20 19:53] LABS: ALT 27 U/L (9-52); AST 22 U/L (14-36); Albumin 4.4 g/dL (3.5-5.0); Alkaline Phosphatase 48 U/L (38-126); Amylase 81 U/L (30-110); Anion Gap 9 mmol/L; Blood Urea Nitrogen 16 mg/dL (7-17); Carbon Dioxide 29 mmol/L (22-30); Chloride 103 mmol/L (98-107); Glucose 87 mg/dL (74-99); Lipase 115 U/L (23-300); Potassium 4.6 mmol/L (3.5-5.1); Sodium 141 mmol/L (137-145); Total Bilirubin 0.2 mg/dL (0.2-1.3); Total Protein 6.7 g/dL (6.3-8.2)
[2017-07-20 20:50] VITALS: BP 110/68; PULSE 60; TEMP 97.2
== END 2017-07-20 21:22 | disposition home or self-care (01) ==
LOC: EC 18:28
DX: N39.0 Urinary tract infection, site not specified (principal); Z91.040 Latex allergy status; Z79.3 Long term (current) use of hormonal contraceptives; Z87.891 Personal history of nicotine dependence
CPT/HCPCS: 36415; 80053; 81001; 81025; 82150; 83690; 85025; 87086; 96360; 96361; 99283

== ENCOUNTER 2017-08-25 21:24 | Emergency (ER) | payer BC ==
[2017-08-25 21:39] VITALS: RESP 18
[2017-08-25] MEDS ORDERED: SODIUM CHLORIDE 0.9% 1,000 ML IV STA (21:51)
--- NOTE | 2017-08-25 21:58 | ED ---
General Adult HPI - General Chief complaint: Chest Pain Stated complaint: chest pain/anxiety Time Seen by Provider: 08/25/17 21:36 Source: patient, EMS, RN notes reviewed Mode of arrival: EMS Limitations: no limitations - History of Present Illness Initial comments: 22-year-old female presents to the emergency department for multiple complaints. Patient states she has been having anxiety for the past 5 days. Patient states she has had chest pain on and off for the past 5 days in the middle of her chest. Patient states the pain is worse when she is having axiety attacks. Patient states she has been on meds before for anxiety but is not currently. Patient also complains of abdominal pain for the past 5 days. Patient describes the pain as a "pulsing" pain. Patient states she has a history of pancreatitis in the past. Patient states the pain is in the right upper quadrant. Patient denies any fevers or chills at home. Patient has no other complaints at this time including shortness of breath, chest pain, abdominal pain, nausea or vomiting, headache, or visual changes. - Related Data Home Medications Medication Instructions Recorded Confirmed medroxyPROGESTERone [Depo-Provera] 150 mg IM Q90D 03/25/17 07/20/17 Previous Rx's Medication Instructions Recorded Ciprofloxacin HCl [Cipro] 500 mg PO Q12HR #10 tablet 07/20/17 Ibuprofen [Motrin] 600 mg PO Q6HR PRN #20 tab 08/25/17 Allergies Allergy/AdvReac Type Severity Reaction Status Date / Time latex Allergy Rash/Hives Verified 08/25/17 21:38 Review of Systems ROS Statement: Those systems with pertinent positive or pertinent negative responses have been documented in the HPI. ROS Other: All systems not noted in ROS Statement are negative. Past Medical History Past Medical History: No Reported History Additional Past Medical History / Comment(s): pancreatis History of Any Multi-Drug Resistant Organisms: None Reported Past Surgical History: No Surgical Hx Reported Past Psychological History: Anxiety, Depression Smoking Status: Former smoker Past Alcohol Use History: None Reported Past Drug Use History: None Reported General Exam Limitations: no limitations General appearance: alert, in no apparent distress Head exam: Present: atraumatic, normocephalic, normal inspection Eye exam: Present: normal appearance ENT exam: Present: normal exam, mucous membranes moist Neck exam: Present: normal inspection, full ROM. Absent: tenderness, meningismus, lymphadenopathy Respiratory exam: Present: normal lung sounds bilaterally. Absent: respiratory distress, wheezes, rales, rhonchi, stridor Cardiovascular Exam: Present: regular rate, normal rhythm, normal heart sounds. Absent: systolic murmur, diastolic murmur, rubs, gallop, clicks GI/Abdominal exam: Present: soft, tenderness (RUQ tenderness), normal bowel sounds. Absent: distended, guarding, rebound, rigid Back exam: Present: CVA tenderness (R), CVA tenderness (L) Course Vital Signs 08/25/17 21:35 Temperature 98.7 F Pulse Rate 78 Respiratory 18 Rate Blood Pressure 122/69 O2 Sat by Pulse 100 Oximetry EKG Findings - EKG Comments: EKG Findings:: Normal sinus rhythm, Ventricular rate 74, SC interval 142, QRS pentecostal 84 Medical Decision Making - Medical Decision Making 22-year-old female since to the emergency department for multiple complaints. Patient has been having anxiety for the past 5 days as well as chest pain and abdominal pain. Patient has a history of anxiety. Patient has history of pancreatitis as well. On exam patient has right upper quadrant tenderness. No lower abdominal tenderness. CBC and CMP unremarkable. Urine does not show significant signs of infection and patient is currently being treated for a UTI. Culture will be sent. CXR negative. I did talk with Dr Vera who recommended adding a cardiac profile as well as d-dimer. However, patient is refusing at this time. She states her pain is at a one and she feels much better. She is ready to go home. I also offered an ultrasound of the gallbladder which patient states she would rather do outpatient as her pain has resolved. Patient will be discharged home with Motrin as she requested. She will follow up with primary care in 1-2 days. - Lab Data Result diagrams: 08/25/17 22:16 08/25/17 22:16 Lab Results 08/25/17 08/25/17 08/25/17 Range/Units 22:16 22:16 22:16 WBC 6.7 (4.0-11.0) k/uL RBC 4.68 (3.80-5.40) m/uL Hgb 14.1 (11.4-16.0) gm/dL Hct 42.5 (34.0-46.0) % MCV 90.7 (80.0-100.0) fL MCH 30.1 (25.0-35.0) pg MCHC 33.2 (31.0-37.0) g/dL RDW 13.0 (11.5-15.5) % Plt Count 227 (150-450) k/uL Neutrophils % 63 % Lymphocytes % 29 % Monocytes % 5 % Eosinophils % 1 % Basophils % 0 % Neutrophils # 4.2 (1.3-7.7) k/uL Lymphocytes # 1.9 (1.0-4.8) k/uL Monocytes # 0.3 (0-1.0) k/uL Eosinophils # 0.1 (0-0.7) k/uL Basophils # 0.0 (0-0.2) k/uL Sodium 140 (137-145) mmol/L Potassium 4.1 (3.5-5.1) mmol/L Chloride 105 (98-107) mmol/L Carbon Dioxide 27 (22-30) mmol/L Anion Gap 8 mmol/L BUN 14 (7-17) mg/dL Creatinine 0.78 (0.52-1.04) mg/dL Est GFR (CKD-EPI)AfAm >90 (>60 ml/min/1.73 sqM) Est GFR (CKD-EPI)NonAf >90 (>60 ml/min/1.73 sqM) Glucose 57 L (74-99) mg/dL Calcium 9.5 (8.4-10.2) mg/dL Total Bilirubin 0.3 (0.2-1.3) mg/dL AST 27 (14-36) U/L ALT 25 (9-52) U/L Alkaline Phosphatase 51 (38-126) U/L Total Protein 7.1 (6.3-8.2) g/dL Albumin 4.5 (3.5-5.0) g/dL Amylase 79 (30-110) U/L Lipase 98 (23-300) U/L Urine Color Light Yellow Urine Appearance Cloudy H (Clear) Urine pH 6.5 (5.0-8.0) Ur Specific [place] 1.006 (1.001-1.035) Urine Protein Negative (Negative) Urine Glucose (UA) Negative (Negative) Urine Ketones Negative (Negative) Urine Blood Negative (Negative) Urine Nitrite Negative (Negative) Urine Bilirubin Negative (Negative) Urine Urobilinogen <2.0 (<2.0) mg/dL Ur Leukocyte Esterase Small H (Negative) Urine RBC 1 (0-5) /hpf Urine WBC 2 (0-5) /hpf Ur Squamous Epith Cells 13 H (0-4) /hpf Urine Mucus Rare H (None) /hpf Disposition Clinical Impression: Anxiety Disposition: HOME SELF-CARE Condition: Good Instructions: Chest Pain (ED), Anxiety (ED) Additional Instructions: Please follow up with primary care in 1-2 days. Please return to the emergency department if you have any worsening symptoms. Prescriptions: Ibuprofen [Motrin] 600 mg PO Q6HR PRN #20 tab PRN Reason: Pain Is patient prescribed a controlled substance at d/c from ED?: No Referrals: Mariana Bass DO [Primary Care Provider] - 1-2 days Time of Disposition: 23:35
[2017-08-25 22:29] LABS: Basophils % (A) 0 %; Eosinophils # (A) 0.1 k/uL (0-0.7); Eosinophils % (A) 1 %; HCT 42.5 % (34.0-46.0); HGB 14.1 gm/dL (11.4-16.0); Lymphocytes # (A) 1.9 k/uL (1.0-4.8); Lymphocytes % (A) 29 %; MCH 30.1 pg (25.0-35.0); MCHC 33.2 g/dL (31.0-37.0); MCV 90.7 fL (80.0-100.0); Monocytes # (A) 0.3 k/uL (0-1.0); Monocytes % (A) 5 %; Neutrophils # (A) 4.2 k/uL (1.3-7.7); Neutrophils % (A) 63 %; Platelet Count 227 k/uL (150-450); RBC 4.68 m/uL (3.80-5.40); WBC 6.7 k/uL (4.0-11.0)
[2017-08-25 22:34] LABS: Appearance,Urine Cloudy (Clear); Bilirubin,Urine Negative (Negative); Blood,Urine Negative (Negative); Color,Urine Light Yellow; Glucose,Urine (UA) Negative (Negative); Ketones,Urine Negative (Negative); Leukocyte Esterase,Urine Small (Negative); Mucus,Urine Rare /hpf; Nitrite,Urine Negative (Negative); PH, Urine 6.5 (5.0-8.0); Protein,Urine Negative (Negative); RBC,Urine 1 /hpf (0-5); Specific Gravity,Urine 1.006 (1.001-1.035); Squamous Epithelial Cell,Urine 13 /hpf (0-4); Urobilinogen,Urine <2.0 mg/dL (<2.0); WBC,Urine 2 /hpf (0-5)
[2017-08-25 22:44] LABS: ALT 25 U/L (9-52); AST 27 U/L (14-36); Albumin 4.5 g/dL (3.5-5.0); Alkaline Phosphatase 51 U/L (38-126); Amylase 79 U/L (30-110); Anion Gap 8 mmol/L; Blood Urea Nitrogen 14 mg/dL (7-17); Calcium 9.5 mg/dL (8.4-10.2); Carbon Dioxide 27 mmol/L (22-30); Chloride 105 mmol/L (98-107); Glucose 57 mg/dL (74-99); Lipase 98 U/L (23-300); Potassium 4.1 mmol/L (3.5-5.1); Sodium 140 mmol/L (137-145); Total Bilirubin 0.3 mg/dL (0.2-1.3); Total Protein 7.1 g/dL (6.3-8.2)
--- NOTE | 2017-08-25 22:56 | XR ---
EXAMINATION TYPE: XR chest 2V DATE OF EXAM: 08/25/2017 COMPARISON: 02/21/2017 HISTORY: Chest pain TECHNIQUE: Frontal and lateral views of the chest are obtained. FINDINGS: Heart and mediastinum are normal. Lungs are clear. Diaphragm is normal. Bony thorax is int act. There are is no pleural effusion. IMPRESSION: Normal chest. No change.
[2017-08-25 23:54] VITALS: BP 105/63; PULSE 83; TEMP 98.2
== END 2017-08-25 23:54 | disposition home or self-care (01) ==
LOC: EC 21:24
DX: F41.9 Anxiety disorder, unspecified (principal); R07.9 Chest pain, unspecified; R10.11 Right upper quadrant pain; Z87.891 Personal history of nicotine dependence; Z79.3 Long term (current) use of hormonal contraceptives; Z91.040 Latex allergy status
CPT/HCPCS: 36415; 71046; 80053; 81001; 82150; 83690; 85025; 87086; 93005; 96360; 99285

== ENCOUNTER 2017-10-21 20:55 | Emergency (ER) | payer BC ==
[2017-10-21 21:11] VITALS: BP 120/78; PULSE 77; RESP 20; TEMP 98.8
[2017-10-21 22:25] LABS: Amorphous Sediment,Urine Rare /hpf; Appearance,Urine Cloudy (Clear); Bilirubin,Urine Negative (Negative); Blood,Urine Negative (Negative); Color,Urine Yellow; Glucose,Urine (UA) Negative (Negative); Ketones,Urine Negative (Negative); Leukocyte Esterase,Urine Negative (Negative); Mucus,Urine Rare /hpf; Nitrite,Urine Negative (Negative); PH, Urine 7.5 (5.0-8.0); Protein,Urine Negative (Negative); RBC,Urine 6 /hpf (0-5); Squamous Epithelial Cell,Urine 5 /hpf (0-4)
--- NOTE | 2017-10-21 22:44 | ED ---
General Adult HPI - General Source: patient, family, RN notes reviewed Mode of arrival: ambulatory Limitations: no limitations <Anoop Galan - Last Filed: 10/21/17 23:00> <Laura Winkler - Last Filed: 10/23/17 05:24> - General Chief complaint: Nausea/Vomiting/Diarrhea Stated complaint: Vomiting Time Seen by Provider: 10/21/17 21:35 - History of Present Illness Initial comments: 22-year-old female presents to the emergency department for a chief complaint of not feeling well about 3 hours ago. Patient states she has a history of anxiety. She states she has had multiple panic attacks in the past. Patient states that today she began to feel lightheaded and dizzy. She states her heart began to race and she was nauseous. Patient states she did vomit once. Patient states all of the symptoms resolved within 20 minutes. Patient states the symptoms are exactly consistent with previous anxiety attacks. Patient states she is feeling much better at this time but wanted to be evaluated because she is starting a new job and did not want to call and if she didn't have to. At this time patient is feeling much better. She states her symptoms has resolved completely besides for mild nausea. Patient denies any abdominal pain. Patient last had a bowel movement earlier today. Patient denies any urinary symptoms such as pain or burning with urination. Patient denies any suicidal or homicidal thoughts. Patient has no other complaints at this time including shortness of breath, chest pain, abdominal pain, nausea or vomiting, headache, or visual changes. (Anoop Galan) - Related Data Home Medications Medication Instructions Recorded Confirmed medroxyPROGESTERone [Depo-Provera] 150 mg IM Q90D 03/25/17 10/21/17 Previous Rx's Medication Instructions Recorded Ibuprofen [Motrin] 600 mg PO Q6HR PRN #20 tab 08/25/17 Allergies Allergy/AdvReac Type Severity Reaction Status Date / Time latex Allergy Rash/Hives Verified 10/21/17 21:11 Review of Systems ROS Other: All systems not noted in ROS Statement are negative. <Anoop Galan - Last Filed: 10/21/17 23:00> ROS Other: All systems not noted in ROS Statement are negative. <Laura Winkler P - Last Filed: 10/23/17 05:24> ROS Statement: Those systems with pertinent positive or pertinent negative responses have been documented in the HPI. Past Medical History Past Medical History: No Reported History Additional Past Medical History / Comment(s): pancreatis History of Any Multi-Drug Resistant Organisms: None Reported Past Surgical History: No Surgical Hx Reported Past Psychological History: ADD/ADHD, Anxiety, Bipolar, Depression Smoking Status: Never smoker Past Alcohol Use History: None Reported Past Drug Use History: None Reported <Anoop Galan P - Last Filed: 10/21/17 23:00> General Exam Limitations: no limitations General appearance: alert, in no apparent distress Head exam: Present: atraumatic, normocephalic, normal inspection Eye exam: Present: normal appearance. Absent: scleral icterus, conjunctival injection ENT exam: Present: normal exam, mucous membranes moist Neck exam: Present: normal inspection, full ROM. Absent: tenderness, meningismus, lymphadenopathy Respiratory exam: Present: normal lung sounds bilaterally. Absent: respiratory distress, wheezes, rales, rhonchi, stridor Cardiovascular Exam: Present: regular rate, normal rhythm, normal heart sounds. Absent: systolic murmur, diastolic murmur, rubs, gallop, clicks GI/Abdominal exam: Present: soft, normal bowel sounds. Absent: distended, tenderness (Absolutely no abdominal tenderness), guarding, rebound, rigid Neurological exam: Present: alert, oriented X3, CN II-XII intact, normal gait, other (Speech normal) Psychiatric exam: Present: normal affect (Patient pleasant sitting up in bed. Well appearing), normal mood. Absent: homicidal ideation, suicidal ideation Skin exam: Present: warm, dry, intact, normal color. Absent: rash <Anoop Galan P - Last Filed: 10/21/17 23:00> Vital Signs 10/21/17 21:06 Temperature 98.8 F Pulse Rate 77 Respiratory 20 Rate Blood Pressure 120/78 O2 Sat by Pulse 98 Oximetry EKG Findings - EKG Comments: EKG Findings:: Normal sinus rhythm, ventricular rate 64, OH interval 138, QRS duration 72 <Anoop Galan P - Last Filed: 10/21/17 23:00> Medical Decision Making - EKG Data -: EKG Interpreted by Me (And Dr. Winkler) EKG shows normal: sinus rhythm, axis, intervals, QRS complexes, ST-T waves Rate: normal When compared to previous EKG there are: no significant change Interpretation: no acute changes, normal EKG, unchanged when compared to prior tracing (date) <Anoop Galan - Last Filed: 10/21/17 23:00> <Laura Winkler - Last Filed: 10/23/17 05:24> - Medical Decision Making 22-year-old female presents to the emergency department for a chief complaint of anxiety symptoms. Patient states these occurred about 3 hours ago and included lightheadedness, increased heart rate, and nausea. She states this lasted for about 20 minutes before resolving. Patient states symptoms are consistent with previous anxiety attacks. At this time patient denies any symptoms besides mild nausea. No abdominal pain. On exam no abdominal tenderness noted. Negative obturator and Honeycutt's signs. She denies fevers or chills at home. Patient last had a bowel movement earlier today. Patient refuses blood work at this time. She states she is feeling much better and does not think she needs blood work and just wanted someone to make sure she was okay. I did do an EKG which showed a normal sinus rhythm with a ventricular rate of 64 bpm. Urinalysis did not show any evidence of infection or ketones. Patient is drinking water in the emergency department without difficulty. She states she is ready to go home. Patient will be discharged home with strong return precautions. She will follow up with primary care tomorrow. (Anoop Galan) I was available for consultation in the emergency department. The history and physical exam were done by the midlevel provider. I was consulted for this patient's care. I reviewed the case with the midlevel provider and based on their presentation of the patient, I agree with the assessment, medical decision making and plan of care as documented. (Laura Winkler) - Lab Data Lab Results 10/21/17 10/21/17 Range/Units 22:00 22:00 Urine Color Yellow Urine Appearance Cloudy H (Clear) Urine pH 7.5 (5.0-8.0) Ur Specific [place] 1.020 (1.001-1.035) Urine Protein Negative (Negative) Urine Glucose (UA) Negative (Negative) Urine Ketones Negative (Negative) Urine Blood Negative (Negative) Urine Nitrite Negative (Negative) Urine Bilirubin Negative (Negative) Urine Urobilinogen 2.0 (<2.0) mg/dL Ur Leukocyte Esterase Negative (Negative) Urine RBC 6 H (0-5) /hpf Ur Squamous Epith Cells 5 H (0-4) /hpf Amorphous Sediment Rare H (None) /hpf Urine Mucus Rare H (None) /hpf Urine HCG, Qual Not Detected (Not Detectd) Disposition Is patient prescribed a controlled substance at d/c from ED?: No Time of Disposition: 22:47 <Anoop Galan P - Last Filed: 10/21/17 23:00> <Laura Winkler P - Last Filed: 10/23/17 05:24> Clinical Impression: Anxiety, Nausea Disposition: HOME SELF-CARE Condition: Good Instructions: Acute Nausea and Vomiting (ED), Anxiety (ED) Additional Instructions: Please follow up with primary care in 1-2 days. Please return to the emergency department if you have any worsening symptoms. Referrals: Mariana Bass DO [Primary Care Provider] - 1-2 days
== END 2017-10-21 22:54 | disposition home or self-care (01) ==
LOC: EC 20:55
DX: F41.9 Anxiety disorder, unspecified (principal); Z79.3 Long term (current) use of hormonal contraceptives; Z91.040 Latex allergy status
CPT/HCPCS: 81001; 81025; 93005; 99284

== ENCOUNTER 2018-01-18 16:58 | Emergency (ER) | payer BC ==
[2018-01-18 17:21] VITALS: RESP 18
[2018-01-18] MEDS ORDERED: MECLIZINE 12.5 MG TAB PO STA (18:07)
[2018-01-18] MEDS ORDERED: ONDANSETRON ODT 4 MG TAB PO STA (18:07)
--- NOTE | 2018-01-18 18:12 | ED ---
General Adult HPI - General Chief complaint: Dizziness Stated complaint: dizziness/lightheaded & congestion Time Seen by Provider: 01/18/18 17:49 Source: patient, RN notes reviewed Mode of arrival: ambulatory Limitations: no limitations - History of Present Illness Initial comments: Patient's a 22-year-old female presented to the emergency room today with chief complaint of dizziness. She does admit that she's had dizziness similar to this in the past off and on. She states she has talked with family doctor about it. She describes it as the room spinning. She states that she's had some cough congestion over the last week. She does admit that the cough congestion seems to be improving. She states her appetite is been decreased. She states she usually eats 5 times a days only been eating twice. Patient denies any other complaints. States is no chance that she could be as she is currently on her menstrual cycle. Patient denies any recent fever, chills , shortness of breath, chest pain, back pain, abdominal pain, nausea or vomiting , visual changes, or any other complaints. - Related Data Home Medications Medication Instructions Recorded Confirmed Acetaminophen [Tylenol Extra 500 mg PO Q6H PRN 01/18/18 01/18/18 Strength] Previous Rx's Medication Instructions Recorded Meclizine [Antivert] 25 mg PO Q6H PRN #20 tab 01/18/18 Ondansetron Odt [Zofran ODT] 4 mg PO Q8HR PRN #20 tab 01/18/18 Sulfamethox-Tmp 800-160Mg [Bactrim 1 tab PO Q12HR #14 tab 01/18/18 DS 800-160 mg] Allergies Allergy/AdvReac Type Severity Reaction Status Date / Time latex Allergy Rash/Hives Verified 01/18/18 18:18 Review of Systems ROS Statement: Those systems with pertinent positive or pertinent negative responses have been documented in the HPI. ROS Other: All systems not noted in ROS Statement are negative. Past Medical History Past Medical History: No Reported History Additional Past Medical History / Comment(s): pancreatis History of Any Multi-Drug Resistant Organisms: None Reported Past Surgical History: No Surgical Hx Reported Past Psychological History: ADD/ADHD, Anxiety, Bipolar, Depression Smoking Status: Never smoker Past Alcohol Use History: None Reported Past Drug Use History: None Reported General Exam - General Exam Comments Initial Comments: General: The patient is awake and alert, in no distress, and does not appear acutely ill. Eye: Pupils are equal, round and reactive to light, extra-ocular movements are intact. No nystagmus. There is normal conjunctiva bilaterally. No signs of icterus. Ears, nose, mouth and throat: There are moist mucous membranes and no oral lesions. Neck: The neck is supple, there is no tenderness or JVD. Cardiovascular: There is a regular rate and rhythm. No murmur, rub or gallop is appreciated. Respiratory: Lungs are clear to auscultation, respirations are non-labored, breath sounds are equal. No wheezes, stridor, rales, or rhonchi. Musculoskeletal: Normal ROM, no tenderness. Neurological: A&O x 3. CN II-XII intact, There are no obvious motor or sensory deficits. Coordination appears grossly intact. Speech is normal. Skin: Skin is warm and dry and no rashes or lesions are noted. Psychiatric: Cooperative, appropriate mood & affect, normal judgment. Limitations: no limitations Course Vital Signs 01/18/18 17:17 Temperature 97.5 F L Pulse Rate 72 Respiratory 18 Rate Blood Pressure 107/70 O2 Sat by Pulse 100 Oximetry - Reevaluation(s) Reevaluation #1: 01/18/18 18:10 Was discussed with the patient about obtaining blood work and started IV to give medications. She has declined currently. States she had a difficult time obtaining IV access last time she was here. EKG Findings - EKG Comments: EKG Findings:: EKG performed that 1822: Shows normal sinus rhythm at [address] 140. QRS 74. QT/QTC 418/418. No acute ST changes. Medical Decision Making - Medical Decision Making Patient reexamined at this time shows no signs of distress. She declined having any blood work or IV. Patient's urinalysis does show large amount of blood because she is on her menstrual cycle. However, there is a large amount of white cells. Patient does admit that she's quite susceptible to UTIs. She denies any symptoms at this time she does admit that in the past she's also. He symptomatically with being diagnosed with UTI. Patient is feeling better after meclizine, Zofran here in the emergency room. Patient will be discharged home continued on these medications also started on antibiotics to cover for urinary tract infection. She is advised follow-up the family doctor over the next 2 days return here to the emergency room symptoms increase or worsen or for any other concerns. - Lab Data Lab Results 01/18/18 01/18/18 Range/Units 18:48 18:48 Urine Color Dark Red Urine Appearance Turbid H (Clear) Urine pH 6.0 (5.0-8.0) Ur Specific [place] 1.021 (1.001-1.035) Urine Protein 2+ H (Negative) Urine Glucose (UA) Negative (Negative) Urine Ketones Negative (Negative) Urine Blood Large H (Negative) Urine Nitrite Negative (Negative) Urine Bilirubin Negative (Negative) Urine Urobilinogen <2.0 (<2.0) mg/dL Ur Leukocyte Esterase Moderate H (Negative) Urine RBC >182 H (0-5) /hpf Urine WBC 115 H (0-5) /hpf Ur Squamous Epith Cells 23 H (0-4) /hpf Urine Mucus Many H (None) /hpf Urine HCG, Qual Not Detected (Not Detectd) Disposition Clinical Impression: UTI (urinary tract infection), Dizziness Disposition: HOME SELF-CARE Condition: Good Instructions: Urinary Tract Infection in Women (ED) Additional Instructions: Please use medication as discussed. Please follow-up with family doctor in the next 2 days of symptoms have not improved. Please return to emergency room if the symptoms increase or worsen or for any other concerns. Prescriptions: Meclizine [Antivert] 25 mg PO Q6H PRN #20 tab PRN Reason: Dizziness Ondansetron Odt [Zofran ODT] 4 mg PO Q8HR PRN #20 tab PRN Reason: Nausea Sulfamethox-Tmp 800-160Mg [Bactrim DS 800-160 mg] 1 tab PO Q12HR #14 tab Is patient prescribed a controlled substance at d/c from ED?: No Referrals: Mariana Bass DO [Primary Care Provider] - 1-2 days Time of Disposition: 19:38
[2018-01-18 18:59] LABS: Appearance,Urine Turbid (Clear); Bilirubin,Urine Negative (Negative); Blood,Urine Large (Negative); Color,Urine Dark Red; Glucose,Urine (UA) Negative (Negative); Ketones,Urine Negative (Negative); Leukocyte Esterase,Urine Moderate (Negative); Mucus,Urine Many /hpf; Nitrite,Urine Negative (Negative); Protein,Urine 2+ (Negative); RBC,Urine >182 /hpf (0-5); Specific Gravity,Urine 1.021 (1.001-1.035); Squamous Epithelial Cell,Urine 23 /hpf (0-4); Urobilinogen,Urine <2.0 mg/dL (<2.0)
--- NOTE | 2018-01-18 19:23 | XR ---
EXAMINATION TYPE: XR chest 2V DATE OF EXAM: 01/18/2018 COMPARISON: 08/25/2017 HISTORY: Cough TECHNIQUE: Frontal and lateral views of the chest are obtained. FINDINGS: Heart and mediastinum are normal. Lungs are clear. Diaphragm is normal. Bony thorax is int act. IMPRESSION: Normal chest. No change.
[2018-01-18 19:54] VITALS: BP 108/79; PULSE 61; TEMP 98
== END 2018-01-18 19:54 | disposition home or self-care (01) ==
LOC: EC 16:58
DX: N39.0 Urinary tract infection, site not specified (principal); R42 Dizziness and giddiness; R05 Cough; R09.89 Other specified symptoms and signs involving the circulatory and respiratory systems; R63.8 Other symptoms and signs concerning food and fluid intake; Z91.040 Latex allergy status
CPT/HCPCS: 71046; 81001; 81025; 87086; 93005; 99284

== ENCOUNTER 2018-01-28 01:57 | Emergency (ER) | payer BC, OTHER ==
[2018-01-28] MEDS ORDERED: MAG HYDROX/AL HYDROX/SIMETH 30 ML, HYOSCYAMINE ELIXIR 10 ML, CIMETIDINE HCL 300 MG, LID... PO STA ×4 (03:29)
--- NOTE | 2018-01-28 03:29 | ED ---
Abdominal Pain HPI - General Chief Complaint: Abdominal Pain Stated Complaint: Abdominal Pain Time Seen by Provider: 01/28/18 03:20 Source: patient, EMS Mode of arrival: EMS Limitations: no limitations - History of Present Illness MD Complaint: abdominal pain Onset/Timin -: hour(s) Location: epigastric Radiation: none Migration to: no migration Severity: moderate Severity scale (1-10): 5 Quality: aching Consistency: constant Improves With: nothing Worsens With: nothing Associated Symptoms: denies other symptoms - Related Data Home Medications Medication Instructions Recorded Confirmed Acetaminophen [Tylenol Extra 500 mg PO Q6H PRN 01/18/18 01/18/18 Strength] Previous Rx's Medication Instructions Recorded Meclizine [Antivert] 25 mg PO Q6H PRN #20 tab 01/18/18 Ondansetron Odt [Zofran ODT] 4 mg PO Q8HR PRN #20 tab 01/18/18 Sulfamethox-Tmp 800-160Mg [Bactrim 1 tab PO Q12HR #14 tab 01/18/18 DS 800-160 mg] Famotidine [Pepcid] 20 mg PO DAILY #14 tablet 01/28/18 Nitrofurantoin Monohyd/M-Cryst 100 mg PO Q12HR #6 cap 01/28/18 [Macrobid] Allergies Allergy/AdvReac Type Severity Reaction Status Date / Time latex Allergy Rash/Hives Verified 01/18/18 18:18 Review of Systems ROS Statement: Those systems with pertinent positive or pertinent negative responses have been documented in the HPI. ROS Other: All systems not noted in ROS Statement are negative. Constitutional: Denies: fever, chills Respiratory: Denies: cough, dyspnea Cardiovascular: Denies: chest pain, palpitations Gastrointestinal: Reports: abdominal pain, nausea. Denies: vomiting, diarrhea, constipation, melena, hematochezia Genitourinary: Denies: dysuria, frequency, hematuria, discharge, abnormal menses Musculoskeletal: Denies: back pain Skin: Denies: rash Neurological: Denies: headache, weakness, numbness Past Medical History Past Medical History: No Reported History Additional Past Medical History / Comment(s): pancreatis, vertigo History of Any Multi-Drug Resistant Organisms: None Reported Past Surgical History: No Surgical Hx Reported Past Psychological History: ADD/ADHD, Anxiety, Bipolar, Depression Smoking Status: Never smoker Past Alcohol Use History: None Reported Past Drug Use History: None Reported General Exam Limitations: no limitations General appearance: alert, in no apparent distress Head exam: Present: atraumatic, normocephalic Eye exam: Present: normal appearance. Absent: scleral icterus, conjunctival injection ENT exam: Present: normal oropharynx Respiratory exam: Present: normal lung sounds bilaterally. Absent: respiratory distress, wheezes, rales, rhonchi, stridor Cardiovascular Exam: Present: regular rate, normal rhythm, normal heart sounds. Absent: systolic murmur, diastolic murmur, rubs, gallop GI/Abdominal exam: Present: soft, tenderness (There is mild epigastric tenderness without rebound or guarding), normal bowel sounds. Absent: distended , guarding, rebound, rigid, mass, pulsatile mass, hernia Extremities exam: Present: normal inspection, normal capillary refill. Absent: pedal edema, calf tenderness Back exam: Present: normal inspection. Absent: CVA tenderness (R), CVA tenderness (L) Neurological exam: Present: alert Skin exam: Present: warm, dry, intact, normal color. Absent: rash Course Vital Signs 01/28/18 01/28/18 02:00 04:20 Temperature 97.6 F Pulse Rate 82 78 Respiratory 17 18 Rate Blood Pressure 126/89 117/78 O2 Sat by Pulse 100 100 Oximetry Medical Decision Making - Lab Data Result diagrams: 01/28/18 02:13 01/28/18 02:13 Lab Results 01/28/18 01/28/18 01/28/18 Range/Units 02:13 02:13 04:23 WBC 8.2 (4.0-11.0) k/uL RBC 4.61 (3.80-5.40) m/uL Hgb 13.8 (11.4-16.0) gm/dL Hct 42.9 (34.0-46.0) % MCV 93.2 (80.0-100.0) fL MCH 29.8 (25.0-35.0) pg MCHC 32.0 (31.0-37.0) g/dL RDW 12.7 (11.5-15.5) % Plt Count 299 (150-450) k/uL Neutrophils % 59 % Lymphocytes % 32 % Monocytes % 4 % Eosinophils % 2 % Basophils % 0 % Neutrophils # 4.8 (1.3-7.7) k/uL Lymphocytes # 2.7 (1.0-4.8) k/uL Monocytes # 0.4 (0-1.0) k/uL Eosinophils # 0.2 (0-0.7) k/uL Basophils # 0.0 (0-0.2) k/uL Sodium 139 (137-145) mmol/L Potassium 4.2 (3.5-5.1) mmol/L Chloride 103 (98-107) mmol/L Carbon Dioxide 27 (22-30) mmol/L Anion Gap 9 mmol/L BUN 21 H (7-17) mg/dL Creatinine 0.76 (0.52-1.04) mg/dL Est GFR (CKD-EPI)AfAm >90 (>60 ml/min/1.73 sqM) Est GFR (CKD-EPI)NonAf >90 (>60 ml/min/1.73 sqM) Glucose 106 H (74-99) mg/dL Calcium 9.5 (8.4-10.2) mg/dL Total Bilirubin 0.3 (0.2-1.3) mg/dL AST 21 (14-36) U/L ALT 30 (9-52) U/L Alkaline Phosphatase 48 (38-126) U/L Total Protein 7.3 (6.3-8.2) g/dL Albumin 4.4 (3.5-5.0) g/dL Amylase 73 (30-110) U/L Lipase 140 (23-300) U/L Urine Color Urine Appearance (Clear) Urine pH (5.0-8.0) Ur Specific [place] (1.001-1.035) Urine Protein (Negative) Urine Glucose (UA) (Negative) Urine Ketones (Negative) Urine Blood (Negative) Urine Nitrite (Negative) Urine Bilirubin (Negative) Urine Urobilinogen (<2.0) mg/dL Ur Leukocyte Esterase (Negative) Urine RBC (0-5) /hpf Urine WBC (0-5) /hpf Ur Squamous Epith Cells (0-4) /hpf Hyaline Casts (0-2) /lpf Urine Mucus (None) /hpf Urine HCG, Qual Not Detected (Not Detectd) 01/28/18 Range/Units 04:23 WBC (4.0-11.0) k/uL RBC (3.80-5.40) m/uL Hgb (11.4-16.0) gm/dL Hct (34.0-46.0) % MCV (80.0-100.0) fL MCH (25.0-35.0) pg MCHC (31.0-37.0) g/dL RDW (11.5-15.5) % Plt Count (150-450) k/uL Neutrophils % % Lymphocytes % % Monocytes % % Eosinophils % % Basophils % % Neutrophils # (1.3-7.7) k/uL Lymphocytes # (1.0-4.8) k/uL Monocytes # (0-1.0) k/uL Eosinophils # (0-0.7) k/uL Basophils # (0-0.2) k/uL Sodium (137-145) mmol/L Potassium (3.5-5.1) mmol/L Chloride (98-107) mmol/L Carbon Dioxide (22-30) mmol/L Anion Gap mmol/L BUN (7-17) mg/dL Creatinine (0.52-1.04) mg/dL Est GFR (CKD-EPI)AfAm (>60 ml/min/1.73 sqM) Est GFR (CKD-EPI)NonAf (>60 ml/min/1.73 sqM) Glucose (74-99) mg/dL Calcium (8.4-10.2) mg/dL Total Bilirubin (0.2-1.3) mg/dL AST (14-36) U/L ALT (9-52) U/L Alkaline Phosphatase (38-126) U/L Total Protein (6.3-8.2) g/dL Albumin (3.5-5.0) g/dL Amylase (30-110) U/L Lipase (23-300) U/L Urine Color Yellow Urine Appearance Cloudy H (Clear) Urine pH 6.5 (5.0-8.0) Ur Specific [place] 1.025 (1.001-1.035) Urine Protein 1+ H (Negative) Urine Glucose (UA) Negative (Negative) Urine Ketones Negative (Negative) Urine Blood Negative (Negative) Urine Nitrite Negative (Negative) Urine Bilirubin Negative (Negative) Urine Urobilinogen 3.0 (<2.0) mg/dL Ur Leukocyte Esterase Moderate H (Negative) Urine RBC 18 H (0-5) /hpf Urine WBC 9 H (0-5) /hpf Ur Squamous Epith Cells 33 H (0-4) /hpf Hyaline Casts 9 H (0-2) /lpf Urine Mucus Many H (None) /hpf Urine HCG, Qual (Not Detectd) Disposition Clinical Impression: Gastritis, Urinary tract infection Disposition: HOME SELF-CARE Condition: Good Instructions: Abdominal Pain (ED), Urinary Tract Infection in Women (ED) Prescriptions: Famotidine [Pepcid] 20 mg PO DAILY #14 tablet Nitrofurantoin Monohyd/M-Cryst [Macrobid] 100 mg PO Q12HR #6 cap Is patient prescribed a controlled substance at d/c from ED?: No Referrals: Mariana Bass DO [Primary Care Provider] - 1-2 days Jaki Ordaz MD [STAFF PHYSICIAN] - 1-2 days
[2018-01-28 03:47] LABS: Basophils % (A) 0 %; Eosinophils # (A) 0.2 k/uL (0-0.7); Eosinophils % (A) 2 %; HCT 42.9 % (34.0-46.0); HGB 13.8 gm/dL (11.4-16.0); Lymphocytes # (A) 2.7 k/uL (1.0-4.8); Lymphocytes % (A) 32 %; MCH 29.8 pg (25.0-35.0); MCV 93.2 fL (80.0-100.0); Mean Platelet Volume 7.7; Monocytes # (A) 0.4 k/uL (0-1.0); Monocytes % (A) 4 %; Neutrophils # (A) 4.8 k/uL (1.3-7.7); Neutrophils % (A) 59 %; Platelet Count 299 k/uL (150-450); RBC 4.61 m/uL (3.80-5.40); RDW 12.7 % (11.5-15.5); WBC 8.2 k/uL (4.0-11.0)
[2018-01-28 03:56] LABS: ALT 30 U/L (9-52); AST 21 U/L (14-36); Albumin 4.4 g/dL (3.5-5.0); Alkaline Phosphatase 48 U/L (38-126); Amylase 73 U/L (30-110); Anion Gap 9 mmol/L; Blood Urea Nitrogen 21 mg/dL (7-17); Calcium 9.5 mg/dL (8.4-10.2); Carbon Dioxide 27 mmol/L (22-30); Chloride 103 mmol/L (98-107); Glucose 106 mg/dL (74-99); Lipase 140 U/L (23-300); Potassium 4.2 mmol/L (3.5-5.1); Sodium 139 mmol/L (137-145); Total Bilirubin 0.3 mg/dL (0.2-1.3); Total Protein 7.3 g/dL (6.3-8.2)
[2018-01-28 04:21] VITALS: PULSE 78
[2018-01-28 04:34] LABS: Appearance,Urine Cloudy (Clear); Bilirubin,Urine Negative (Negative); Blood,Urine Negative (Negative); Color,Urine Yellow; Glucose,Urine (UA) Negative (Negative); Hyaline Casts,Urine 9 /lpf (0-2); Ketones,Urine Negative (Negative); Leukocyte Esterase,Urine Moderate (Negative); Mucus,Urine Many /hpf; Nitrite,Urine Negative (Negative); PH, Urine 6.5 (5.0-8.0); Protein,Urine 1+ (Negative); RBC,Urine 18 /hpf (0-5); Specific Gravity,Urine 1.025 (1.001-1.035); Squamous Epithelial Cell,Urine 33 /hpf (0-4); WBC,Urine 9 /hpf (0-5)
[2018-01-28] MEDS ORDERED: NITROFURANTOIN MONOHYD/M-CRYST 100 MG CAP PO STA (06:59)
[2018-01-28 07:07] VITALS: BP 111/74; RESP 16; TEMP 98
== END 2018-01-28 07:07 | disposition home or self-care (01) ==
LOC: EC 01:57
DX: K29.70 Gastritis, unspecified, without bleeding (principal); N39.0 Urinary tract infection, site not specified; Z91.040 Latex allergy status
CPT/HCPCS: 36415; 80053; 81001; 81025; 82150; 83690; 85025; 99284

== ENCOUNTER 2018-02-08 22:07 | Emergency (ER) | payer BC, OTHER ==
[2018-02-08 22:48] LABS: Appearance,Urine Cloudy (Clear); Bilirubin,Urine Negative (Negative); Blood,Urine Negative (Negative); Color,Urine Yellow; Glucose,Urine (UA) Negative (Negative); Ketones,Urine Negative (Negative); Leukocyte Esterase,Urine Negative (Negative); Mucus,Urine Rare /hpf; Nitrite,Urine Negative (Negative); PH, Urine 6.5 (5.0-8.0); Protein,Urine Negative (Negative); RBC,Urine 1 /hpf (0-5); Specific Gravity,Urine 1.021 (1.001-1.035); Squamous Epithelial Cell,Urine 9 /hpf (0-4); Urobilinogen,Urine <2.0 mg/dL (<2.0); WBC,Urine 3 /hpf (0-5)
--- NOTE | 2018-02-08 23:14 | ED ---
Abdominal Pain HPI - General Chief Complaint: Abdominal Pain Stated Complaint: Kidney pain, fever Time Seen by Provider: 02/08/18 22:27 Source: patient Mode of arrival: ambulatory Limitations: no limitations - History of Present Illness Initial Comments: ABBY is a 22-year-old female who presents to the emergency department today for evaluation of possible urinary tract infection bilateral flank pain. Patient was seen and evaluated on [place] at which time she was advised she had a urinary tract infection. She was prescribed Macrobid. Patient reports that due to financial constraints she was unable to obtain this antibiotic. She reports that over the past couple days she feels as though she has crampy pain in her bilateral flanks and was concerned that she may have infection that his spread to her flanks. She denies any fevers, chills, nausea or vomiting or change in bowel or bladder habits. Patient denies any vaginal discharge or concern for sexual transmitted infections. Patient reports she has been tested for she transmitted infections in the past, she is been negative, she has not had any new sexual partner since her last testing. - Related Data Home Medications Medication Instructions Recorded Confirmed Acetaminophen [Tylenol Extra 500 mg PO Q6H PRN 01/18/18 02/08/18 Strength] Allergies Allergy/AdvReac Type Severity Reaction Status Date / Time latex Allergy Rash/Hives Verified 02/08/18 22:57 Review of Systems ROS Statement: Those systems with pertinent positive or pertinent negative responses have been documented in the HPI. ROS Other: All systems not noted in ROS Statement are negative. Past Medical History Past Medical History: No Reported History Additional Past Medical History / Comment(s): pancreatis, vertigo History of Any Multi-Drug Resistant Organisms: None Reported Past Surgical History: No Surgical Hx Reported Past Psychological History: ADD/ADHD, Anxiety, Bipolar, Depression Smoking Status: Never smoker Past Alcohol Use History: None Reported Past Drug Use History: None Reported General Exam - General Exam Comments Initial Comments: Physical Exam GENERAL: Patient is well-developed and well-nourished. Patient is nontoxic and well- hydrated and is in no distress. HENT: Normocephalic, Atraumatic. EYES: PERRL, EOMI PULMONARY: Unlabored respirations. No audible rales rhonchi or wheezing was noted. CARDIOVASCULAR: There is a regular rate and rhythm without any murmurs gallops or rubs. ABDOMEN: Soft and nontender with normal bowel sounds. SKIN: Skin is clear with no lesions or rashes and otherwise unremarkable. : Deferred NEUROLOGIC: Patient is alert and oriented x3. Moving all extremities spontaneously MUSCULOSKELETAL: Normal extremities with adequate strength and full range of motion. No lower extremity swelling or edema. No calf tenderness. PSYCHIATRIC: Normal psychiatric evaluation. Limitations: no limitations Limitations: no limitations Course Vital Signs 02/08/18 22:18 Temperature 98.9 F Pulse Rate 84 Respiratory 18 Rate Blood Pressure 130/66 O2 Sat by Pulse 100 Oximetry Medical Decision Making - Medical Decision Making The patient was seen and evaluated history is obtained from the patient excited patient reported urinary tract infection on Melissa did not receive any antibiotics due to financial constraints Labs were ordered Urinalysis no evidence of UTI Labs reveal mildly elevated BUNs suggestive of prerenal dehydration Patient was treated with IV fluids. All questions pertaining to care were answered return parameters were discussed patient was discharged home in stable condition - Lab Data Result diagrams: 02/08/18 22:31 02/08/18 22:31 Lab Results 02/08/18 02/08/18 02/08/18 Range/Units 22:22 22:22 22:31 WBC (4.0-11.0) k/uL RBC (3.80-5.40) m/uL Hgb (11.4-16.0) gm/dL Hct (34.0-46.0) % MCV (80.0-100.0) fL MCH (25.0-35.0) pg MCHC (31.0-37.0) g/dL RDW (11.5-15.5) % Plt Count (150-450) k/uL Neutrophils % % Lymphocytes % % Monocytes % % Eosinophils % % Basophils % % Neutrophils # (1.3-7.7) k/uL Lymphocytes # (1.0-4.8) k/uL Monocytes # (0-1.0) k/uL Eosinophils # (0-0.7) k/uL Basophils # (0-0.2) k/uL Sodium 138 (137-145) mmol/L Potassium 4.3 (3.5-5.1) mmol/L Chloride 103 (98-107) mmol/L Carbon Dioxide 27 (22-30) mmol/L Anion Gap 8 mmol/L BUN 22 H (7-17) mg/dL Creatinine 0.76 (0.52-1.04) mg/dL Est GFR (CKD-EPI)AfAm >90 (>60 ml/min/1.73 sqM) Est GFR (CKD-EPI)NonAf >90 (>60 ml/min/1.73 sqM) Glucose 99 (74-99) mg/dL Calcium 9.3 (8.4-10.2) mg/dL Urine Color Yellow Urine Appearance Cloudy H (Clear) Urine pH 6.5 (5.0-8.0) Ur Specific [place] 1.021 (1.001-1.035) Urine Protein Negative (Negative) Urine Glucose (UA) Negative (Negative) Urine Ketones Negative (Negative) Urine Blood Negative (Negative) Urine Nitrite Negative (Negative) Urine Bilirubin Negative (Negative) Urine Urobilinogen <2.0 (<2.0) mg/dL Ur Leukocyte Esterase Negative (Negative) Urine RBC 1 (0-5) /hpf Urine WBC 3 (0-5) /hpf Ur Squamous Epith Cells 9 H (0-4) /hpf Urine Mucus Rare H (None) /hpf Urine HCG, Qual Not Detected (Not Detectd) 02/08/18 Range/Units 22:31 WBC 7.0 (4.0-11.0) k/uL RBC 4.54 (3.80-5.40) m/uL Hgb 13.8 (11.4-16.0) gm/dL Hct 42.6 (34.0-46.0) % MCV 93.8 (80.0-100.0) fL MCH 30.3 (25.0-35.0) pg MCHC 32.3 (31.0-37.0) g/dL RDW 12.7 (11.5-15.5) % Plt Count 268 (150-450) k/uL Neutrophils % 58 % Lymphocytes % 33 % Monocytes % 5 % Eosinophils % 1 % Basophils % 0 % Neutrophils # 4.1 (1.3-7.7) k/uL Lymphocytes # 2.3 (1.0-4.8) k/uL Monocytes # 0.4 (0-1.0) k/uL Eosinophils # 0.1 (0-0.7) k/uL Basophils # 0.0 (0-0.2) k/uL Sodium (137-145) mmol/L Potassium (3.5-5.1) mmol/L Chloride (98-107) mmol/L Carbon Dioxide (22-30) mmol/L Anion Gap mmol/L BUN (7-17) mg/dL Creatinine (0.52-1.04) mg/dL Est GFR (CKD-EPI)AfAm (>60 ml/min/1.73 sqM) Est GFR (CKD-EPI)NonAf (>60 ml/min/1.73 sqM) Glucose (74-99) mg/dL Calcium (8.4-10.2) mg/dL Urine Color Urine Appearance (Clear) Urine pH (5.0-8.0) Ur Specific [place] (1.001-1.035) Urine Protein (Negative) Urine Glucose (UA) (Negative) Urine Ketones (Negative) Urine Blood (Negative) Urine Nitrite (Negative) Urine Bilirubin (Negative) Urine Urobilinogen (<2.0) mg/dL Ur Leukocyte Esterase (Negative) Urine RBC (0-5) /hpf Urine WBC (0-5) /hpf Ur Squamous Epith Cells (0-4) /hpf Urine Mucus (None) /hpf Urine HCG, Qual (Not Detectd) Disposition Clinical Impression: Abdominal pain, Dehydration Disposition: HOME SELF-CARE Instructions: Abdominal Pain (ED) Is patient prescribed a controlled substance at d/c from ED?: No Referrals: Mariana Bass DO [Primary Care Provider] - 1-2 days Time of Disposition: 00:11
[2018-02-08] MEDS ORDERED: SODIUM CHLORIDE 0.9% 1,000 ML IV ONE (23:22)
[2018-02-08 23:48] LABS: Basophils % (A) 0 %; Eosinophils # (A) 0.1 k/uL (0-0.7); Eosinophils % (A) 1 %; HCT 42.6 % (34.0-46.0); HGB 13.8 gm/dL (11.4-16.0); Lymphocytes # (A) 2.3 k/uL (1.0-4.8); Lymphocytes % (A) 33 %; MCH 30.3 pg (25.0-35.0); MCHC 32.3 g/dL (31.0-37.0); MCV 93.8 fL (80.0-100.0); Mean Platelet Volume 7.9; Monocytes # (A) 0.4 k/uL (0-1.0); Monocytes % (A) 5 %; Neutrophils # (A) 4.1 k/uL (1.3-7.7); Neutrophils % (A) 58 %; Platelet Count 268 k/uL (150-450); RBC 4.54 m/uL (3.80-5.40); RDW 12.7 % (11.5-15.5)
[2018-02-08 23:56] LABS: Anion Gap 8 mmol/L; Blood Urea Nitrogen 22 mg/dL (7-17); Calcium 9.3 mg/dL (8.4-10.2); Carbon Dioxide 27 mmol/L (22-30); Chloride 103 mmol/L (98-107); Glucose 99 mg/dL (74-99); Potassium 4.3 mmol/L (3.5-5.1); Sodium 138 mmol/L (137-145)
[2018-02-09 00:48] VITALS: BP 117/69; PULSE 76; RESP 16; TEMP 98.1
== END 2018-02-09 00:46 | disposition home or self-care (01) ==
LOC: EC 22:07
DX: R10.9 Unspecified abdominal pain (principal); E86.0 Dehydration; R50.9 Fever, unspecified; Z91.040 Latex allergy status; Z87.440 Personal history of urinary (tract) infections
CPT/HCPCS: 36415; 80048; 81001; 81025; 85025; 96360; 99284

== ENCOUNTER 2018-05-07 23:21 | Emergency (ER) | payer OTHER ==
[2018-05-08] MEDS ORDERED: PENICILLIN VK 500MG STARTER 4 TAB BTL PO STA (00:03)
--- NOTE | 2018-05-08 00:07 | ED ---
ENT HPI - General Chief complaint: Dental/Oral Stated complaint: Swollen throat Time Seen by Provider: 05/07/18 23:53 Source: patient Mode of arrival: ambulatory Limitations: no limitations - History of Present Illness Initial comments: 's patient is 22-year-old woman who presents to be evaluated for left mandibular dental pain. She states that this is been a mild intermittent problem except for the past 1-2 days when it was becoming worse. She states that she tried to schedule point with a dentist but was not able to see one for over 3 weeks. Pasquale galvan denies systemic symptoms, including no fever or chills, chest pain, dyspnea, palpitations. No trouble speech or swallowing. MD complaint: tooth pain -: days(s) Location: tooth # (17) Severity: moderate Quality: aching Consistency: constant Improves with: none Worsens with: eating Context- Dental: history of dental caries Associated Symptoms: toothache - Related Data Previous Rx's Medication Instructions Recorded Ibuprofen [Motrin] 600 mg PO Q8HR PRN #20 tab 05/08/18 Penicillin V Potassium [Pen Vee K] 500 mg PO Q6H #28 tablet 05/08/18 Allergies Allergy/AdvReac Type Severity Reaction Status Date / Time latex Allergy Rash/Hives Verified 02/08/18 22:57 Review of Systems ROS Statement: Those systems with pertinent positive or pertinent negative responses have been documented in the HPI. ROS Other: All systems not noted in ROS Statement are negative. Constitutional: Denies: fever, chills Eyes: Denies: eye pain, vision change ENT: Reports: dental pain Respiratory: Denies: cough, dyspnea Cardiovascular: Denies: palpitations Gastrointestinal: Denies: vomiting Skin: Denies: rash Neurological: Denies: headache Past Medical History Past Medical History: No Reported History Additional Past Medical History / Comment(s): pancreatis, vertigo History of Any Multi-Drug Resistant Organisms: None Reported Past Surgical History: No Surgical Hx Reported Past Psychological History: ADD/ADHD, Anxiety, Bipolar, Depression Smoking Status: Never smoker Past Alcohol Use History: None Reported Past Drug Use History: None Reported General Exam Limitations: no limitations General appearance: alert, in no apparent distress Head exam: Present: atraumatic, normocephalic Eye exam: Present: normal appearance, EOMI. Absent: scleral icterus, conjunctival injection ENT exam: Present: other (Patient has a extensive caries to the left mandibular teeth. There is no abscess. No evidence of Erik angina. No sublingual tenderness or fullness.) Neck exam: Present: normal inspection, full ROM. Absent: tenderness, meningismus, lymphadenopathy Respiratory exam: Present: normal lung sounds bilaterally. Absent: respiratory distress, wheezes, rales, rhonchi, stridor Cardiovascular Exam: Present: regular rate, normal rhythm, normal heart sounds Skin exam: Present: warm, dry, intact, normal color. Absent: rash Course Vital Signs 05/07/18 23:30 Temperature 97.8 F Pulse Rate 76 Respiratory 20 Rate Blood Pressure 110/77 O2 Sat by Pulse 99 Oximetry Disposition Clinical Impression: Toothache, Dental caries Disposition: HOME SELF-CARE Condition: Good Instructions (If sedation given, give patient instructions): Dental Caries (ED), Toothache (ED) Prescriptions: Ibuprofen [Motrin] 600 mg PO Q8HR PRN #20 tab PRN Reason: Pain Penicillin V Potassium [Pen Vee K] 500 mg PO Q6H #28 tablet Is patient prescribed a controlled substance at d/c from ED?: No Referrals: Mariana Bass DO [Primary Care Provider] - 1-2 days
[2018-05-08 00:20] VITALS: RESP 18; TEMP 98.5
--- NOTE | 2018-05-08 00:47 | XR ---
EXAM: XR Soft Tissue Neck CLINICAL HISTORY: ITS.REASON XR Reason: Pain TECHNIQUE: Frontal and lateral views of the soft tissues of the neck. COMPARISON: No relevant prior studies available. FINDINGS: Airway: Unremarkable. No abnormal narrowing. Bones/joints: Unremarkable. Soft tissues: Mildly prominent palatine tonsils. Normal epiglottis. IMPRESSION: Mildly prominent palatine tonsils.
[2018-05-08 01:41] VITALS: BP 127/88; PULSE 72
== END 2018-05-08 01:42 | disposition home or self-care (01) ==
LOC: EC 23:21
DX: K02.9 Dental caries, unspecified (principal); Z91.040 Latex allergy status
CPT/HCPCS: 70360; 99283

== ENCOUNTER 2018-06-19 00:08 | Emergency (ER) | payer OTHER ==
[2018-06-19] MEDS ORDERED: ACETAMINOPHEN TAB 325 MG TAB ONE (00:59)
[2018-06-19] MEDS ORDERED: METOCLOPRAMIDE 10 MG TAB ONE (00:59)
[2018-06-19] MEDS ORDERED: diphenhydrAMINE 50 MG CAP ONE (00:59)
[2018-06-19 07:07] LABS: Appearance,Urine Clear (Clear); Bilirubin,Urine Negative (Negative); Blood,Urine Negative (Negative); Color,Urine Yellow; Glucose,Urine (UA) Negative (Negative); Ketones,Urine Negative (Negative); Leukocyte Esterase,Urine Negative (Negative); Nitrite,Urine Negative (Negative); Protein,Urine Negative (Negative); Urobilinogen,Urine <2.0 mg/dL (<2.0)
== END 2018-06-19 03:13 | disposition home or self-care (01) ==
LOC: EC 00:08
DX: G43.909 Migraine, unspecified, not intractable, without status migrainosus (principal); Z32.02 Encounter for pregnancy test, result negative; Z53.20 Procedure and treatment not carried out because of patient's decision for unspecified reasons
CPT/HCPCS: 81003; 81025; 99283

== ENCOUNTER 2018-10-16 19:12 | Emergency (ER) | payer OTHER ==
[2018-10-16 19:30] VITALS: RESP 18
[2018-10-16 20:42] LABS: Appearance,Urine Cloudy (Clear); Bacteria,Urine Rare /hpf; Bilirubin,Urine Negative (Negative); Blood,Urine Negative (Negative); Color,Urine Yellow; Glucose,Urine (UA) Negative (Negative); Ketones,Urine Negative (Negative); Leukocyte Esterase,Urine Large (Negative); Mucus,Urine Rare /hpf; Nitrite,Urine Negative (Negative); Protein,Urine Negative (Negative); RBC,Urine 2 /hpf (0-5); Specific Gravity,Urine 1.023 (1.001-1.035); Squamous Epithelial Cell,Urine 26 /hpf (0-4); Urobilinogen,Urine <2.0 mg/dL (<2.0)
--- NOTE | 2018-10-16 21:13 | ED ---
General Adult HPI - General Chief complaint: Fever Stated complaint: Fever Time Seen by Provider: 10/16/18 20:03 Source: patient Mode of arrival: ambulatory Limitations: no limitations - History of Present Illness Initial comments: Patient is a 23-year-old female presenting to emergency Department with complaints of a fever this morning. Patient is also having bilateral nipple discharge. Describes the discharge as clear to white in nature. It is happens occasionally and in small amounts. Patient is 10 weeks . Patient denies recent illnesses, chills, nausea, vomiting, abdominal pain, vaginal bleeding, urinary complaints, cough, shortness of breath. This is patient's first . She has no other complaints at this time. Upon arrival to the ER, vital signs are stable, afebrile. - Related Data Previous Rx's Medication Instructions Recorded Ibuprofen [Motrin] 600 mg PO Q8HR PRN #20 tab 05/08/18 Penicillin V Potassium [Pen Vee K] 500 mg PO Q6H #28 tablet 05/08/18 Allergies Allergy/AdvReac Type Severity Reaction Status Date / Time latex Allergy Rash/Hives Verified 10/16/18 19:30 Review of Systems ROS Statement: Those systems with pertinent positive or pertinent negative responses have been documented in the HPI. ROS Other: All systems not noted in ROS Statement are negative. Past Medical History Past Medical History: No Reported History Additional Past Medical History / Comment(s): pancreatis, vertigo History of Any Multi-Drug Resistant Organisms: None Reported Past Surgical History: No Surgical Hx Reported Past Psychological History: ADD/ADHD, Anxiety, Bipolar, Depression Smoking Status: Never smoker Past Alcohol Use History: None Reported Past Drug Use History: None Reported General Exam - General Exam Comments Initial Comments: GENERAL: Well-appearing, well-nourished and in no acute distress. Strong body odor. HEAD: Atraumatic, normocephalic. EYES: Pupils equal round and reactive to light, extraocular movements intact, sclera anicteric, conjunctiva are normal. ENT: TMs normal, nares patent, oropharynx clear without exudates. Moist mucous membranes. NECK: Normal range of motion, supple without lymphadenopathy or JVD. LUNGS: Breath sounds clear to auscultation bilaterally and equal. No wheezes rales or rhonchi. No active nipple discharge. No signs of erythema surrounding and oppose no signs of infection. HEART: Regular rate and rhythm without murmurs, rubs or gallops. ABDOMEN: Soft, nontender, normoactive bowel sounds. No guarding, no rebound. No masses appreciated. : Deferred EXTREMITIES: Normal range of motion, no pitting or edema. No clubbing or cyanosis. NEUROLOGICAL: Cranial nerves II through XII grossly intact. Normal speech, normal gait. PSYCH: Normal mood, normal affect. SKIN: Warm, Dry, normal turgor, no rashes or lesions noted. Limitations: no limitations Course Vital Signs 10/16/18 10/16/18 19:26 21:18 Temperature 98.8 F 98.2 F Pulse Rate 101 H 85 Respiratory 18 18 Rate Blood Pressure 105/64 122/86 O2 Sat by Pulse 97 99 Oximetry Medical Decision Making - Medical Decision Making Patient is a 23-year-old female with complaints of fever and nipple discharge. Patient is currently 10 weeks . First . Patient denies any recent illnesses, shortness of breath, chest pain, cough, urinary complaints, nausea, vomiting, abdominal pain, vaginal bleeding. There is no active nipple discharge at this time. UA reveals 11 WBCs. Urine will be cultured and if positive will be started on antibiotic. Thus with patient that nipple discharge when can be a normal occurrence. Patient's vital signs are stable during stay, afebrile. Patient is stable for discharge at this time. Patient will follow up with [facility]. Return parameters were discussed with the patient she verbalized understanding. Case discussed with Dr. Nielson. - Lab Data Lab Results 10/16/18 Range/Units 20:31 Urine Color Yellow Urine Appearance Cloudy H (Clear) Urine pH 6.0 (5.0-8.0) Ur Specific [place] 1.023 (1.001-1.035) Urine Protein Negative (Negative) Urine Glucose (UA) Negative (Negative) Urine Ketones Negative (Negative) Urine Blood Negative (Negative) Urine Nitrite Negative (Negative) Urine Bilirubin Negative (Negative) Urine Urobilinogen <2.0 (<2.0) mg/dL Ur Leukocyte Esterase Large H (Negative) Urine RBC 2 (0-5) /hpf Urine WBC 11 H (0-5) /hpf Ur Squamous Epith Cells 26 H (0-4) /hpf Urine Bacteria Rare H (None) /hpf Urine Mucus Rare H (None) /hpf Disposition Clinical Impression: Nipple discharge, and not yet delivered in first trimester Disposition: HOME SELF-CARE Condition: Stable Instructions (If sedation given, give patient instructions): Urinary Tract Infection in Women (ED) Additional Instructions: Please return to the Emergency Department if symptoms worsen or any other concerns. Follow-up with [facility] as needed. Is patient prescribed a controlled substance at d/c from ED?: No Referrals: Mariana Bass DO [Primary Care Provider] - 1-2 days
[2018-10-16 21:20] VITALS: BP 122/86; PULSE 85; TEMP 98.2
== END 2018-10-16 21:18 | disposition home or self-care (01) ==
LOC: EC 19:12
DX: O92.79 Other disorders of lactation (principal); Z3A.10 10 weeks gestation of pregnancy; Z91.040 Latex allergy status
CPT/HCPCS: 81001; 87086; 99283

== ENCOUNTER → 2018-10-29 | Outpatient (CLI) | payer OTHER ==
--- NOTE | 2018-10-30 09:03 | US ---
EXAMINATION TYPE: Transabdominal DATE OF EXAM: 10/29/2018 3:55 PM COMPARISON: NONE CLINICAL HISTORY: Z34.01 Normal Encounter for . EXAM PERFORMED: EXAM MEASUREMENTS: GESTATIONAL AGE / DATING Physician Established: (11 weeks/2 days) EDC: 05/18/19 Dates by LMP: (11 weeks/2 days) EDC: 05/18/19 Dates by First Scan: Not available ( Dates by Current Scan for: (11 weeks/1 days) EDC: 05/19/19 MATERNAL ANATOMY Uterus: 10.7 x 6.3 x 8.8cm Right Ovary: 3.0 x 2.6 x 2.2cm Left Ovary: 2.9 x 2.5 x 2.5 cm Post CDS / Adnexa: wnl Presence of free fluid: no GESTATION / SURVEY CRL: 4.2cm ( 11 weeks/1 days) Yolk Sac (normal less than 6mm): not sen Heart Rate: to follow in PACS IUP: Viable IUP Nuchal Translucency 10-14wks (normal less than 3mm): Date of LMP: patient is unsure IMPRESSION: Single viable intrauterine corresponding to ultrasound age of 11 weeks 1 day with estimated date of delivery 05/19/2019 by today's exam.
== END | disposition home or self-care (01) ==
LOC: RADUSWWP 15:35
PROVIDERS: ATTEND Obstetrics & Gynecology
DX: Z34.01 Encounter for supervision of normal first pregnancy, first trimester (principal); Z3A.11 11 weeks gestation of pregnancy
CPT/HCPCS: 76801

== ENCOUNTER 2018-12-13 19:29 | Emergency (ER) | payer OTHER ==
[2018-12-13 19:33] VITALS: RESP 18
[2018-12-13] MEDS ORDERED: SODIUM CHLORIDE 0.9% 1,000 ML IV ONE (20:01)
--- NOTE | 2018-12-13 20:17 | ED ---
General Adult HPI - General Chief complaint: Vaginal Bleeding Stated complaint: 18 Weeks Preg Abd Pain Time Seen by Provider: 12/13/18 19:36 Source: patient, RN notes reviewed Mode of arrival: ambulatory Limitations: no limitations - History of Present Illness Initial comments: 23-year-old female presents to the emergency department for a chief complaint of vaginal discharge and abdominal pain. Patient is a currently 18 weeks who presents to the emergency department for a chief complaint of sharp abdominal pain. Patient states is generalized in nature. States that she also noticed that she is having some vaginal discharge that has a worsening odor. This started today. States it is pinkish in color. States she was tested for gonorrhea Chlamydia and Trichomonas and has not been sexually active since that time. Denies any dysuria or fevers. Denies nausea or vomiting. States the sensation has been ongoing for about 1.5 hours.Patient has no other complaints at this time including shortness of breath, chest pain, nausea or vomiting, headache, or visual changes. - Related Data Previous Rx's Medication Instructions Recorded Ibuprofen [Motrin] 600 mg PO Q8HR PRN #20 tab 05/08/18 Penicillin V Potassium [Pen Vee K] 500 mg PO Q6H #28 tablet 05/08/18 Allergies Allergy/AdvReac Type Severity Reaction Status Date / Time latex Allergy Rash/Hives Verified 12/13/18 19:33 Review of Systems ROS Statement: Those systems with pertinent positive or pertinent negative responses have been documented in the HPI. ROS Other: All systems not noted in ROS Statement are negative. Past Medical History Past Medical History: No Reported History Additional Past Medical History / Comment(s): pancreatis, vertigo History of Any Multi-Drug Resistant Organisms: None Reported Past Surgical History: No Surgical Hx Reported Past Psychological History: ADD/ADHD, Anxiety, Bipolar, Depression Smoking Status: Never smoker Past Alcohol Use History: None Reported Past Drug Use History: None Reported General Exam Limitations: no limitations General appearance: alert, in no apparent distress Head exam: Present: atraumatic, normocephalic, normal inspection Eye exam: Present: normal appearance, PERRL, EOMI. Absent: scleral icterus, conjunctival injection, periorbital swelling ENT exam: Present: normal exam, mucous membranes moist Neck exam: Present: normal inspection, full ROM. Absent: tenderness, meni ngismus, lymphadenopathy Respiratory exam: Present: normal lung sounds bilaterally. Absent: respiratory distress, wheezes, rales, rhonchi, stridor Cardiovascular Exam: Present: regular rate, normal rhythm, normal heart sounds. Absent: systolic murmur, diastolic murmur, rubs, gallop, clicks GI/Abdominal exam: Present: soft, tenderness (Minimal generalized lower abdominal tenderness. mild Right and Left lower quadrant tenderness as well as supra pubic. No rebound tenderness. Negative obturator sign.), normal bowel sounds. Absent: distended, guarding, rebound, rigid Neurological exam: Present: alert Psychiatric exam: Present: normal affect, normal mood Course Vital Signs 12/13/18 19:29 Temperature 98.3 F Pulse Rate 100 Respiratory 18 Rate Blood Pressure 113/71 O2 Sat by Pulse 100 Oximetry Medical Decision Making - Medical Decision Making Vitals are stable. Patient is afebrile. Exam reveals generalized lower abdominal tenderness. Patient complains of pain worse in the suprapubic and left lower quadrant area. I did attempt to do a pelvic exam the patient was unable to tolerate this and ultimately refused. She did self swab for Trich omonas which was negative. Gonorrhea and chlamydia are pending. CBC is unremarkable. CMP shows minimal transaminitis. At this time I have a low suspicion for appendicitis as patient is afebrile with a normal white blood cell count and nonspecific abdominal pain. Ultrasound was done which revealed a low- lying placenta which needs to be reevaluated after 20 weeks. I discussed this with patient. Urinalysis does show evidence of urinary tract infection. Culture pending. Patient will be treated. Patient's pain is likely ligamentous in nature and possibly related to urinary tract infection. No CVA tenderness. She reevaluated and oxygen much better without analgesics. Pain is a 3 out of 10. Patient will be discharged home to follow up with her [employer]. She has an appointment on Sunday. She'll return if she has any worsening symptoms or develop any fevers. - Lab Data Result diagrams: 12/13/18 20:13 12/13/18 20:13 Lab Results 12/13/18 12/13/18 12/13/18 Range/Units 20:13 20:13 20:13 WBC 8.1 (3.8-10.6) k/uL RBC 3.86 (3.80-5.40) m/uL Hgb 12.5 (11.4-16.0) gm/dL Hct 35.3 (34.0-46.0) % MCV 91.5 (80.0-100.0) fL MCH 32.4 (25.0-35.0) pg MCHC 35.4 (31.0-37.0) g/dL RDW 13.1 (11.5-15.5) % Plt Count 211 (150-450) k/uL Neutrophils % 71 % Lymphocytes % 22 % Monocytes % 3 % Eosinophils % 1 % Basophils % 0 % Neutrophils # 5.8 (1.3-7.7) k/uL Lymphocytes # 1.8 (1.0-4.8) k/uL Monocytes # 0.3 (0-1.0) k/uL Eosinophils # 0.1 (0-0.7) k/uL Basophils # 0.0 (0-0.2) k/uL Sodium (137-145) mmol/L Potassium (3.5-5.1) mmol/L Chloride (98-107) mmol/L Carbon Dioxide (22-30) mmol/L Anion Gap mmol/L BUN (7-17) mg/dL Creatinine (0.52-1.04) mg/dL Est GFR (CKD-EPI)AfAm (>60 ml/min/1.73 sqM) Est GFR (CKD-EPI)NonAf (>60 ml/min/1.73 sqM) Glucose (74-99) mg/dL Calcium (8.4-10.2) mg/dL Total Bilirubin (0.2-1.3) mg/dL AST (14-36) U/L ALT (9-52) U/L Alkaline Phosphatase (38-126) U/L Total Protein (6.3-8.2) g/dL Albumin (3.5-5.0) g/dL Amylase (30-110) U/L Lipase (23-300) U/L Urine Color Yellow Urine Appearance Cloudy H (Clear) Urine pH 6.5 (5.0-8.0) Ur Specific [place] 1.022 (1.001-1.035) Urine Protein Trace H (Negative) Urine Glucose (UA) Negative (Negative) Urine Ketones Negative (Negative) Urine Blood Trace H (Negative) Urine Nitrite Negative (Negative) Urine Bilirubin Negative (Negative) Urine Urobilinogen <2.0 (<2.0) mg/dL Ur Leukocyte Esterase Large H (Negative) Urine RBC 3 (0-5) /hpf Urine WBC 18 H (0-5) /hpf Ur Squamous Epith Cells 21 H (0-4) /hpf Calcium Oxalate Crystal Few H (None) /hpf Urine Mucus Rare H (None) /hpf Trichomonas Ag (Rapid) Negative (Negative) Blood Type Blood Type Recheck Bld Type Recheck Status 12/13/18 12/13/18 Range/Units 20:13 20:13 WBC (3.8-10.6) k/uL RBC (3.80-5.40) m/uL Hgb (11.4-16.0) gm/dL Hct (34.0-46.0) % MCV (80.0-100.0) fL MCH (25.0-35.0) pg MCHC (31.0-37.0) g/dL RDW (11.5-15.5) % Plt Count (150-450) k/uL Neutrophils % % Lymphocytes % % Monocytes % % Eosinophils % % Basophils % % Neutrophils # (1.3-7.7) k/uL Lymphocytes # (1.0-4.8) k/uL Monocytes # (0-1.0) k/uL Eosinophils # (0-0.7) k/uL Basophils # (0-0.2) k/uL Sodium 137 (137-145) mmol/L Potassium 3.6 (3.5-5.1) mmol/L Chloride 104 (98-107) mmol/L Carbon Dioxide 25 (22-30) mmol/L Anion Gap 8 mmol/L BUN 14 (7-17) mg/dL Creatinine 0.56 (0.52-1.04) mg/dL Est GFR (CKD-EPI)AfAm >90 (>60 ml/min/1.73 sqM) Est GFR (CKD-EPI)NonAf >90 (>60 ml/min/1.73 sqM) Glucose 84 (74-99) mg/dL Calcium 9.1 (8.4-10.2) mg/dL Total Bilirubin 0.2 (0.2-1.3) mg/dL AST 45 H (14-36) U/L ALT 85 H (9-52) U/L Alkaline Phosphatase 37 L (38-126) U/L Total Protein 6.5 (6.3-8.2) g/dL Albumin 3.7 (3.5-5.0) g/dL Amylase 97 (30-110) U/L Lipase 149 (23-300) U/L Urine Color Urine Appearance (Clear) Urine pH (5.0-8.0) Ur Specific [place] (1.001-1.035) Urine Protein (Negative) Urine Glucose (UA) (Negative) Urine Ketones (Negative) Urine Blood (Negative) Urine Nitrite (Negative) Urine Bilirubin (Negative) Urine Urobilinogen (<2.0) mg/dL Ur Leukocyte Esterase (Negative) Urine RBC (0-5) /hpf Urine WBC (0-5) /hpf Ur Squamous Epith Cells (0-4) /hpf Calcium Oxalate Crystal (None) /hpf Urine Mucus (None) /hpf Trichomonas Ag (Rapid) (Negative) Blood Type A Positive Blood Type Recheck No Previous Record Bld Type Recheck Status ABR ONLY Disposition Clinical Impression: Urinary tract infection Disposition: HOME SELF-CARE Condition: Good Instructions (If sedation given, give patient instructions): Abdominal Pain in (ED), Urinary Tract Infection in (ED) Additional Instructions: Please follow-up with your [employer] on Sunday. If you have any worsening symptoms such as fevers or worsening abdominal pain return to the emergency department. Is patient prescribed a controlled substance at d/c from ED?: No Referrals: Theron Camarillo DO [REFERRING] - 1-2 days Time of Disposition: 22:07
[2018-12-13 20:27] LABS: Basophils % (A) 0 %; Eosinophils # (A) 0.1 k/uL (0-0.7); Eosinophils % (A) 1 %; HCT 35.3 % (34.0-46.0); HGB 12.5 gm/dL (11.4-16.0); Lymphocytes # (A) 1.8 k/uL (1.0-4.8); Lymphocytes % (A) 22 %; MCH 32.4 pg (25.0-35.0); MCHC 35.4 g/dL (31.0-37.0); MCV 91.5 fL (80.0-100.0); Mean Platelet Volume 6.8; Monocytes # (A) 0.3 k/uL (0-1.0); Monocytes % (A) 3 %; Neutrophils # (A) 5.8 k/uL (1.3-7.7); Neutrophils % (A) 71 %; Platelet Count 211 k/uL (150-450); RBC 3.86 m/uL (3.80-5.40); RDW 13.1 % (11.5-15.5); WBC 8.1 k/uL (3.8-10.6)
[2018-12-13 20:29] LABS: Appearance,Urine Cloudy (Clear); Bilirubin,Urine Negative (Negative); Blood,Urine Trace (Negative); Calcium Oxalate Crystals,Urine Few /hpf; Color,Urine Yellow; Glucose,Urine (UA) Negative (Negative); Ketones,Urine Negative (Negative); Leukocyte Esterase,Urine Large (Negative); Mucus,Urine Rare /hpf; Nitrite,Urine Negative (Negative); PH, Urine 6.5 (5.0-8.0); Protein,Urine Trace (Negative); RBC,Urine 3 /hpf (0-5); Specific Gravity,Urine 1.022 (1.001-1.035); Squamous Epithelial Cell,Urine 21 /hpf (0-4); Urobilinogen,Urine <2.0 mg/dL (<2.0); WBC,Urine 18 /hpf (0-5)
[2018-12-13 20:35] LABS: ALT 85 U/L (9-52); AST 45 U/L (14-36); African American GFR (CKD) >90 (>60 ml/min/1.73 sqM); Albumin 3.7 g/dL (3.5-5.0); Alkaline Phosphatase 37 U/L (38-126); Amylase 97 U/L (30-110); Anion Gap 8 mmol/L; Blood Urea Nitrogen 14 mg/dL (7-17); Calcium 9.1 mg/dL (8.4-10.2); Carbon Dioxide 25 mmol/L (22-30); Chloride 104 mmol/L (98-107); Glucose 84 mg/dL (74-99); Potassium 3.6 mmol/L (3.5-5.1); Sodium 137 mmol/L (137-145); Total Bilirubin 0.2 mg/dL (0.2-1.3); Total Protein 6.5 g/dL (6.3-8.2)
--- NOTE | 2018-12-13 21:23 | US ---
EXAMINATION TYPE: US OB >= 14 wk fetus DATE OF EXAM: 12/13/2018 COMPARISON: US dated 10/29/2018 CLINICAL HISTORY: painLeft abdomen pain earlier today; prior renal stones 3 years ago per patient; pi nk tinged discharge today per patient; TECHNIQUE: Transabdominal (TA) GESTATIONAL AGE / DATING Physician Established: (17 weeks/5 days) EDC: 05/18/2019 Dates by LMP: (17 weeks/5 days) EDC: 05/18/2019 Dates by First Scan: (17 weeks/4 days) EDC: 05/19/2019 Dates by Current Scan: (17 weeks/5 days) EDC: 05/18/2019 Beta HCG (if available): NA SURVEY IUP: Single PLACENTA: Posterior PREVIA: no previa on recheck as distance of placental end to internal OS = 2.9cm. Borderline low-lyi ng placenta. JYOTHI: 11.0 cm Normal CERVICAL LENGTH (transabdominal: norm > 3.0cm): 4.0 cm BIOMETRY PRESENTATION: Vertex LIE: Longitudinal BPD: 3.9 cm 17 weeks / 6 days HC: 14.3 cm 17 weeks / 4 days AC: 12.4 cm 18 weeks / 0 days FL: 2.5 cm 17 weeks / 4 days ESTIMATED WEIGHT IN GRAMS: 209.4 grams ESTIMATED WEIGHT IN LBS/OZ: 0 lbs. 7 oz. WEIGHT PERCENTAGE BASED ON ESTABLISHED DATES: 48.7% HC/AC: 1.15 Normal FL/AC: 20.28 Normal HEART RATE: 150 bpm RHYTHM: Normal Single, live IUP, 17 weeks/5 days, EDC: 05/18/2019, HR 150bpm. IMPRESSION: Borderline low lying placenta. Reevaluation after 20 weeks is recommended. Single live in trauterine with a sonographic age of 17 weeks and 5 days and estimated date of delivery of 05/18/2019.
[2018-12-13] MEDS ORDERED: CEPHALEXIN 500MG STARTER PACK 4 CAP BTL PO STA (22:09)
[2018-12-13 22:25] VITALS: BP 101/59; PULSE 74; TEMP 98
[2018-12-15 14:42] LABS: N. gonorrhoeae,PCR Negative (Neg,Equiv); Neisseria Source Urine
[2018-12-15 14:43] LABS: C. trachomatis,PCR Negative (Neg,Equiv); Chlamydia trachomatis Source Urine
== END 2018-12-13 22:41 | disposition home or self-care (01) ==
LOC: EC 19:29
DX: O23.42 Unspecified infection of urinary tract in pregnancy, second trimester (principal); O99.89 Other specified diseases and conditions complicating pregnancy, childbirth and the puerperium; R74.0 Nonspecific elevation of levels of transaminase and lactic acid dehydrogenase [LDH]; N89.8 Other specified noninflammatory disorders of vagina; Z91.040 Latex allergy status; Z3A.18 18 weeks gestation of pregnancy; Z53.20 Procedure and treatment not carried out because of patient's decision for unspecified reasons
CPT/HCPCS: 36415; 76805; 80053; 81001; 82150; 83690; 85025; 86900; 86901; 87070; 87086; 87491; 87591; 87808; 99284

== ENCOUNTER 2018-12-20 16:14 | Emergency (ER) | payer OTHER ==
[2018-12-20 16:32] VITALS: RESP 18; TEMP 97.9
[2018-12-20] MEDS ORDERED: ACETAMINOPHEN TAB 325 MG TAB PO STA (17:26)
[2018-12-20 17:54] VITALS: BP 107/78; PULSE 85
--- NOTE | 2018-12-20 17:58 | ED ---
General Adult HPI - General Chief complaint: ENT Stated complaint: sore throat/cough Time Seen by Provider: 12/20/18 16:41 Source: patient, RN notes reviewed Mode of arrival: ambulatory Limitations: no limitations - History of Present Illness Initial comments: 23-year-old female currently 19 weeks was at [facility] emergency department for a chief throat. States this has been ongoing since yesterday. Patient also has a mild cough, denies any productivity of this. Denies fevers or chills. States she would like to make sure she does not have strep. States several people are sick with a viral infection at work. She denies any shortness of breath or chest pain. Denies any abdominal pain besides for some side pain when she coughs. Denies any vaginal bleeding.Patient has no other complaints at this time including shortness of breath, chest pain, abdominal pain, nausea or vomiting, headache, or visual changes. - Related Data Previous Rx's Medication Instructions Recorded Ibuprofen [Motrin] 600 mg PO Q8HR PRN #20 tab 05/08/18 Penicillin V Potassium [Pen Vee K] 500 mg PO Q6H #28 tablet 05/08/18 Cephalexin [Keflex] 500 mg PO Q6HR 7 Days #28 cap 12/13/18 Allergies Allergy/AdvReac Type Severity Reaction Status Date / Time latex Allergy Rash/Hives Verified 12/20/18 16:28 Review of Systems ROS Statement: Those systems with pertinent positive or pertinent negative responses have been documented in the HPI. ROS Other: All systems not noted in ROS Statement are negative. Past Medical History Past Medical History: No Reported History Additional Past Medical History / Comment(s): pancreatis, vertigo History of Any Multi-Drug Resistant Organisms: None Reported Past Surgical History: No Surgical Hx Reported Past Psychological History: ADD/ADHD, Anxiety, Bipolar, Depression Smoking Status: Never smoker Past Alcohol Use History: None Reported Past Drug Use History: None Reported General Exam Limitations: no limitations General appearance: alert, in no apparent distress Head exam: Present: atraumatic, normocephalic, normal inspection Eye exam: Present: normal appearance, PERRL, EOMI. Absent: scleral icterus, conjunctival injection, periorbital swelling ENT exam: Present: normal exam, normal oropharynx (Nonerythematous, uvula midline, no tonsillar exudates noted bilaterally), mucous membranes moist, TM's normal bilaterally, normal external ear exam Neck exam: Present: normal inspection, full ROM. Absent: tenderness, meningismus, lymphadenopathy Respiratory exam: Present: normal lung sounds bilaterally. Absent: respiratory distress, wheezes, rales, rhonchi, stridor Cardiovascular Exam: Present: regular rate, normal rhythm, normal heart sounds. Absent: bradycardia, tachycardia, irregular rhythm GI/Abdominal exam: Present: soft, normal bowel sounds. Absent: distended, tenderness, guarding, rebound, rigid Psychiatric exam: Present: normal affect, normal mood Course Vital Signs 12/20/18 12/20/18 16:28 17:52 Temperature 97.9 F Pulse Rate 77 85 Respiratory 18 18 Rate Blood Pressure 109/74 107/78 O2 Sat by Pulse 99 100 Oximetry Medical Decision Making - Medical Decision Making Patient presents for sore throat. Patient wants to make sure she does not have strep. Rapid strep results came back negative. Center criteria of 0. Patient will not be treated empirically with antibiotics. Patient adamantly refuses chest x-ray stating she knows she does not have pneumonia and her cough is not bad. She does however agree to return immediately if she develops fevers or any other worsening cough. She also refuses influenza as she does not want her nose swabbed and does not believe she has this. I recommended she follow up with primary care as well as [facility] [employer] in 1-2 days. I recommended she return here if she has any worsening symptoms. - Lab Data Lab Results 12/20/18 Range/Units 16:51 Group A Strep Rapid Negative (Negative) Disposition Clinical Impression: Viral pharyngitis Disposition: HOME SELF-CARE Condition: Good Instructions (If sedation given, give patient instructions): Pharyngitis (ED) Additional Instructions: These take Tylenol for pain. You may do salt water gargles and drink warm liquids for comfort. Follow up with primary care and [facility] [employer] in the next 1-2 days. If you have any worsening symptoms such as fevers or worsening cough return immediately to the emergency department. Is patient prescribed a controlled substance at d/c from ED?: No Referrals: Derrick Short MD [REFERRING] - 1-2 days Time of Disposition: 17:57
== END 2018-12-20 18:17 | disposition home or self-care (01) ==
LOC: EC 16:14
DX: J02.8 Acute pharyngitis due to other specified organisms (principal); Z91.040 Latex allergy status; Z53.20 Procedure and treatment not carried out because of patient's decision for unspecified reasons
CPT/HCPCS: 87081; 87430; 99283

== ENCOUNTER → 2018-12-26 | Outpatient (CLI) | payer OTHER ==
--- NOTE | 2018-12-27 07:11 | US ---
EXAMINATION TYPE: US OB anatomy transabd DATE OF EXAM: 12/26/2018 COMPARISON: NONE HISTORY: Z34.90 SUPERVISION OF NORMAL Anatomy scan TECHNIQUE: OBTA EXAM MEASUREMENTS: GESTATIONAL AGE / DATING Physician Established: (19 weeks/4 days) EDC: 05/18/2019 Dates by LMP: (19 weeks/4 days) EDC: 05/18/2019 Dates by First Scan: (19 weeks/3 days) EDC: 05/19/2019 Dates by Current Scan for: (19 weeks/4 days) EDC: 05/18/2019 SURVEY IUP: Single PLACENTA: Posterior PREVIA: No previa JYOTHI: 14.6 cm Normal CERVICAL LENGTH (transabdominal: norm > 3.0cm): 3.2 cm BIOMETRY PRESENTATION: Variable LIE: Longitudinal BPD: 4.4 cm 19 weeks / 3 days HC: 16.1 cm 19 weeks / 0 days AC: 14.8 cm 20 weeks / 1 days FL: 3.0 cm 19 weeks / 2 days ESTIMATED WEIGHT IN GRAMS: 302 grams ESTIMATED WEIGHT IN LBS/OZ: 0 lbs. 11 oz. WEIGHT PERCENTAGE BASED ON ESTABLISHED DATE: 47 % HC/AC: 1.1 Normal FL/AC: 20 Normal HEART RATE: 147 bpm RHYTHM: Normal ANATOMY SEEN (within normal limits): * Lateral Vent (< 1 cm) 0.5 cm * Cisterna Magna (< 1.1 cm) 0.4 cm * Nuchal Fold (< 0.6 cm) 0.2 cm * Cerebellum (varies with age) 1.9 cm Choroid Plexus (bilateral) Midline Falx Cavus Septi Pellucidi Four Chamber Heart Outflow tracts: LVOT/RVOT Stomach Situs Nose / Lips Diaphragm Kidneys (bilateral) Bladder Cord Insert Three Vessel Cord Arms (bilateral) Legs (bilateral) ANATOMY NOT SEEN: Patient scheduling OB Callback Longitudinal Spine Transverse Spine IMPRESSION: Single viable intrauterine . Limited anatomic survey. Patient has scheduled a callback .
== END | disposition home or self-care (01) ==
LOC: RADUSWWP 14:53
PROVIDERS: ATTEND Obstetrics & Gynecology
DX: Z34.92 Encounter for supervision of normal pregnancy, unspecified, second trimester (principal); Z3A.19 19 weeks gestation of pregnancy
CPT/HCPCS: 76811

== ENCOUNTER 2019-02-14 19:30 | Outpatient (CLI) | payer OTHER ==
[2019-02-14 21:31] VITALS: BP 118/67; PULSE 107; RESP 16; TEMP 98
--- NOTE | 2019-02-17 10:03 | P.MSEPDOC ---
Presenting Problems - Arrival Data Date of Arrival on Unit: 02/14/19 Time of Arrival on Unit: 19:30 Mode of Transport: Ambulatory - Complaint OB-Reason for Admission/Chief Complaint: Pain Comment: pt states she has a cold and has been coughing, her chest and lower back pain is rates at a 6 from the coughing. Medical History - Information : 1 Para: 0 Term: 0 : 0 Abortions: Spontaneous or Elective: 0 Number of Living Children: 0 - Gestational Age Gestational Age by SHAMIKA (wks/days): 26 Weeks and 5 Days Review of Systems - Review of Systems Constitutional: No problems Breast: No problems ENT: No problems Cardiovascular: No problems Respiratory: No problems Gastrointestinal: No problems Genitourinary: No problems Musculoskeletal: No problems Neurological: No problems Skin: No problems Vital Signs - Temperature Temperature: 98.0 F Temperature Source: Oral - Pulse Right Sitting Pulse Rate: 107 Pulse Assessment Method: Automatic Cuff - Respirations Respiratory Rate: 16 Oxygen Delivery Method: Room Air O2 Sat by Pulse Oximetry: 98 - Blood Pressure Right Arm Sitting Blood Pressure: 118/67 Blood Pressure Mean: 84 Blood Pressure Source: Automatic Cuff Medical Screen Scoring (Pre) - Uterine Contractions Frequency: N/A Duration: N/A Intensity: N/A - Maternal Vital Signs Maternal Temperature: N/A Signs of Preeclampsia: N/A Maternal Respirations: N/A - Maternal Trauma Maternal Trauma: N/A - Assessment - Baby A Baseline FHR: 145 Heart Rate - NICHD Category: Category I (Normal) = 0 Position: N/A Station: N/A - Total Score - Baby A Total Score - Baby A: 0 - Total Score - Baby B Total Score - Baby B: 0 - Total Score - Baby C Total Score - Baby C: 0 - Level of Risk - Baby A Level of Risk - Baby A: Low (0-5) - Level of Risk - Baby B Level of Risk - Baby B: Low (0-5) - Level of Risk - Baby C Level of Risk - Baby C: Low (0-5) Physician Notification (Pre) - Physician Notified Physician Notified Date: 02/14/19 Physician Notified Time: 20:05 New Order Received: Yes (discharge to ER) Disposition - Disposition OB Disposition: Transfer to other dept./facility, Written follow up instructions reviewed Discharge Date: 02/14/19 Discharge Time: 20:15 I agree with the RN Medical Screening Exam: Yes Risk & Benefit of care provided described in d/c instruction: Yes Diagnosis: OTHER SPECIFIED COMPLICATIONS OF LABOR AND DELIVERY
== END 2019-02-14 20:15 | disposition home or self-care (01) ==
LOC: FBPOP 19:30
PROVIDERS: ATTEND Obstetrics & Gynecology Obstetrics
DX: O75.89 Other specified complications of labor and delivery (principal); Z3A.26 26 weeks gestation of pregnancy
CPT/HCPCS: 99213

== ENCOUNTER 2019-02-14 20:18 | Emergency (ER) | payer OTHER ==
[2019-02-14 20:30] VITALS: TEMP 98.3
--- NOTE | 2019-02-14 21:57 | ED ---
URI HPI - General Chief Complaint: Upper Respiratory Infection Stated Complaint: Cough, sore throat Source: family Mode of arrival: ambulatory Limitations: no limitations - History of Present Illness Initial Comments: Alison is a previously healthy 23-year-old female currently 27 weeks gestation with her first . Patient presents the ER today for evaluation of dry nonproductive cough. Patient reports that beginning on Sunday she developed nasal congestion, pain in her right ear and nonproductive cough. Patient reports her throat has become sore from coughing. Cough is worse at night but persists throughout the day. She stated some Tylenol and Benadryl. Patient came to the ER today and was evaluated by OB, she was advised that baby is doing well vital signs again she was advised, ER for evaluation. Patient denies any fevers, chills, nausea or vomiting. She reports she's been eating and drinking well. Denies any chest pain at rest or pleuritic pain. - Related Data Home Medications Medication Instructions Recorded Confirmed Ondansetron HCl [Zofran] 4 mg PO DAILY PRN 02/14/19 02/14/19 Allergies Allergy/AdvReac Type Severity Reaction Status Date / Time latex Allergy Rash/Hives Verified 02/14/19 20:30 Review of Systems ROS Statement: Those systems with pertinent positive or pertinent negative responses have been documented in the HPI. ROS Other: All systems not noted in ROS Statement are negative. Past Medical History Past Medical History: No Reported History Additional Past Medical History / Comment(s): pancreatis, vertigo History of Any Multi-Drug Resistant Organisms: None Reported Past Surgical History: No Surgical Hx Reported Past Psychological History: ADD/ADHD, Anxiety, Bipolar, Depression Smoking Status: Never smoker Past Alcohol Use History: None Reported Past Drug Use History: None Reported General Exam - General Exam Comments Initial Comments: Physical Exam GENERAL: Patient is well-developed and well-nourished. Patient is nontoxic and well- hydrated and is in no distress. HENT: Normocephalic, Atraumatic. EYES: PERRL, EOMI PULMONARY: Unlabored respirations. No audible rales rhonchi or wheezing was noted. Decreased respiratory excursion but clear breath sounds CARDIOVASCULAR: Tachycardic, regular ABDOMEN: Gravid abdomen SKIN: Skin is clear with no lesions or rashes and otherwise unremarkable. : Deferred NEUROLOGIC: Patient is alert and oriented x3. Moving all extremities spontaneously MUSCULOSKELETAL: Normal extremities with adequate strength and full range of motion. No lower extremity swelling or edema. No calf tenderness. PSYCHIATRIC: Normal psychiatric evaluation. Limitations: no limitations Course Vital Signs 02/14/19 02/14/19 20:26 21:32 Temperature 98.3 F Pulse Rate 133 H Respiratory 18 16 Rate Blood Pressure 107/71 O2 Sat by Pulse 96 Oximetry Medical Decision Making - Medical Decision Making Patient was seen and evaluated history was obtained from the patient. History and physical exam are systems with a viral upper respiratory infection. Supportive care measures were discussed with the patient. Patient expresses concern that she doesn't have any type of income and therefore hasn't been able to buy any honey, cough drops or hot tea. She states she will ask her mom for this. She also expresses concern that she lives in the home with her mom who is a smoker and does smoke inside the home. Considering the patient's tachycardia I did offer to order an IV and give her IV fluids for supportive care however patient states that she scared of IVs prefer not to she'll make sure she is drinking plenty of fluids. She is comfortable plan for discharge home. All questions pertaining care were answered return parameters were discussed patient discharged home in stable condition. Disposition Clinical Impression: Upper respiratory tract infection Disposition: HOME SELF-CARE Condition: Stable Instructions (If sedation given, give patient instructions): Upper Respiratory Infection (ED) Additional Instructions: Make sure you're drinking fluids and staying hydrated Drinking a warm tea with honey or having hard candies or safe cough drops may be soothing to her throat and decrease the irritation and cough Try sleeping with the head of her bed elevated You can continue to take Tylenol or Benadryl as needed. 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 Is patient prescribed a controlled substance at d/c from ED?: No Referrals: None,Stated [Primary Care Provider] - 1-2 days
[2019-02-14 22:05] VITALS: BP 118/72; PULSE 72; RESP 18
== END 2019-02-14 22:04 | disposition home or self-care (01) ==
LOC: EC 20:18
DX: O99.512 Diseases of the respiratory system complicating pregnancy, second trimester (principal); J06.9 Acute upper respiratory infection, unspecified; O99.89 Other specified diseases and conditions complicating pregnancy, childbirth and the puerperium; R00.0 Tachycardia, unspecified; Z91.040 Latex allergy status; Z77.22 Contact with and (suspected) exposure to environmental tobacco smoke (acute) (chronic); Z3A.27 27 weeks gestation of pregnancy; Z53.29 Procedure and treatment not carried out because of patient's decision for other reasons
CPT/HCPCS: 99283

== ENCOUNTER 2019-03-05 16:28 | Outpatient (CLI) | payer OTHER ==
[2019-03-05 18:00] VITALS: BP 109/63; PULSE 90; RESP 16; TEMP 97.6
--- NOTE | 2019-03-18 11:52 | P.MSEPDOC ---
Presenting Problems - Arrival Data Date of Arrival on Unit: 03/05/19 Time of Arrival on Unit: 16:30 Mode of Transport: Ambulatory - Complaint OB-Reason for Admission/Chief Complaint: Rule Out PROM Medical History - Information : 1 Para: 0 Term: 0 : 0 Abortions: Spontaneous or Elective: 0 Number of Living Children: 0 - Gestational Age Gestational Age by SHAMIKA (wks/days): 29 Weeks and 5 Days Review of Systems - Review of Systems Constitutional: No problems Breast: No problems ENT: No problems Cardiovascular: No problems Respiratory: No problems Gastrointestinal: No problems Genitourinary: No problems Musculoskeletal: No problems Neurological: No problems Skin: No problems Vital Signs - Temperature Temperature: 97.6 F Temperature Source: Temporal Artery Scan - Pulse Pulse Oximetery Pulse Rate: 90 Pulse Assessment Method: Pulse Oximetry - Respirations Respiratory Rate: 16 O2 Sat by Pulse Oximetry: 100 - Blood Pressure Right Arm Sitting Blood Pressure: 109/63 Blood Pressure Mean: 78 Blood Pressure Source: Automatic Cuff Medical Screen Scoring (Pre) - Cervical Exam Dilation: 0 cm = 0 Membranes: Intact - Uterine Contractions Frequency: N/A Duration: N/A Intensity: N/A - Maternal Vital Signs Maternal Temperature: N/A Maternal Blood Pressure: N/A Signs of Preeclampsia: N/A Maternal Respirations: N/A - Maternal Trauma Maternal Trauma: N/A - Assessment - Baby A Baseline FHR: 145 Heart Rate - NICHD Category: Category I (Normal) = 0 NST: Reactive Position: N/A Station: N/A - Total Score - Baby A Total Score - Baby A: 0 - Total Score - Baby B Total Score - Baby B: 0 - Total Score - Baby C Total Score - Baby C: 0 - Level of Risk - Baby A Level of Risk - Baby A: Low (0-5) - Level of Risk - Baby B Level of Risk - Baby B: Low (0-5) - Level of Risk - Baby C Level of Risk - Baby C: Low (0-5) Physician Notification (Pre) - Physician Notified Physician Notified Date: 03/05/19 Physician Notified Time: 17:27 Disposition - Disposition OB Disposition: Discharge to home, Written follow up instructions reviewed Discharge Date: 03/05/19 Discharge Time: 17:57 I agree with the RN Medical Screening Exam: Yes Risk & Benefit of care provided described in d/c instruction: Yes Diagnosis: false labor
== END 2019-03-05 17:45 | disposition home or self-care (01) ==
LOC: FBPOP 16:28
PROVIDERS: ATTEND Obstetrics & Gynecology
DX: O47.1 False labor at or after 37 completed weeks of gestation (principal); Z3A.29 29 weeks gestation of pregnancy
CPT/HCPCS: 59025; 84112; G0463; 99213

== ENCOUNTER → 2019-03-07 | Outpatient (CLI) | payer OTHER ==
--- NOTE | 2019-03-09 17:23 | US ---
EXAMINATION TYPE: US OB limited DATE OF EXAM: 03/07/2019 COMPARISON: NONE CLINICAL HISTORY: 23-year-old female Z34.90 Encounter for supervision of normal . Assess spin e, spine down at previous anatomy scan EXAM PERFORMED: OB limited FINDINGS: GESTATIONAL AGE / DATING Physician Established: (29 weeks/5 days) EDC: 05/18/2019 No growth performed on today?s study per ordering physician SURVEY Patrol Man notes: Transverse and longitudinal appearance of the cervical and thoracic spine appear n ormal. Unable to obtain lumbar spine. Patient voided and moved around to try to have fetus move. Scan fe patient in LLD to obtain images. *Patient told to come back within 2 weeks to assess lumbar spine* PRESENTATION: Breech LIE: Longitudinal HEART RATE: 136 bpm RHYTHM: Normal IMPRESSION: Cervical and thoracic spine appear normal. Unable to assess the lumbar spine and sacrum at this time. Patient instructed to return in 2 weeks for rescan.
== END | disposition home or self-care (01) ==
LOC: RADUSWWP 15:00
PROVIDERS: ATTEND Obstetrics & Gynecology
DX: Z34.90 Encounter for supervision of normal pregnancy, unspecified, unspecified trimester (principal); Z3A.29 29 weeks gestation of pregnancy
CPT/HCPCS: 76815

== ENCOUNTER 2020-09-04 10:57 | Emergency (ER) | payer OTHER ==
[2020-09-04 11:02] VITALS: TEMP 97.6
[2020-09-04] MEDS ORDERED: SODIUM CHLORIDE 0.9% 1,000 ML IV ONE (11:13)
[2020-09-04 11:42] LABS: Basophils % (A) 0 %; Eosinophils # (A) 0.1 k/uL (0-0.7); Eosinophils % (A) 1 %; HCT 39.7 % (34.0-46.0); HGB 13.5 gm/dL (11.4-16.0); Lymphocytes # (A) 1.1 k/uL (1.0-4.8); Lymphocytes % (A) 22 %; MCV 93.9 fL (80.0-100.0); Mean Platelet Volume 8.1; Monocytes # (A) 0.3 k/uL (0-1.0); Monocytes % (A) 6 %; Neutrophils # (A) 3.3 k/uL (1.3-7.7); Neutrophils % (A) 69 %; Platelet Count 225 k/uL (150-450); RBC 4.22 m/uL (3.80-5.40); RDW 13.1 % (11.5-15.5); WBC 4.8 k/uL (3.8-10.6)
[2020-09-04 11:52] LABS: ALT 9 U/L (4-34); AST 17 U/L (14-36); African American GFR (CKD) >90 (>60 ml/min/1.73 sqM); Alkaline Phosphatase 46 U/L (38-126); Anion Gap 5 mmol/L; Blood Urea Nitrogen 17 mg/dL (7-17); Calcium 9.1 mg/dL (8.4-10.2); Carbon Dioxide 26 mmol/L (22-30); Chloride 106 mmol/L (98-107); Glucose 90 mg/dL (74-99); Non-African American GFR(CKD) >90 (>60 ml/min/1.73 sqM); Sodium 137 mmol/L (137-145); Total Bilirubin 0.4 mg/dL (0.2-1.3); Total Protein 6.5 g/dL (6.3-8.2)
[2020-09-04 12:08] LABS: HCG,Quantitative Serum <2.4 mIU/mL
--- NOTE | 2020-09-04 12:10 | ED ---
General Adult HPI - General Chief complaint: Vaginal Bleeding Stated complaint: 5wks preg/Bleeding/Cramping Time Seen by Provider: 09/04/20 11:02 Source: patient, RN notes reviewed Mode of arrival: ambulatory Limitations: no limitations - History of Present Illness Initial comments: 25-year-old female with a past medical history pancreatitis, vertigo presents to the emergency room for a chief complaint of vaginal bleeding. Patient reports she is a female currently almost 5 weeks . She is unsure on LMP dates. She presents to the emergency room for vaginal bleeding that started today at work. She had some slight cramping but no real abdominal pain. Patient states bleeding has almost stopped.Patient has no other complaints at this time including shortness of breath, chest pain, abdominal pain, nausea or vomiting, headache, or visual changes. - Related Data Home Medications Medication Instructions Recorded Confirmed Ondansetron HCl [Zofran] 4 mg PO BID 02/14/19 03/05/19 Pnv No.95/Ferrous Fum/Folic AC 1 each PO DAILY 03/05/19 03/05/19 [ Multivitamin Tablet] Allergies Allergy/AdvReac Type Severity Reaction Status Date / Time latex Allergy Rash/Hives Verified 09/04/20 10:58 Review of Systems ROS Statement: Those systems with pertinent positive or pertinent negative responses have been documented in the HPI. ROS Other: All systems not noted in ROS Statement are negative. Past Medical History Past Medical History: No Reported History Additional Past Medical History / Comment(s): pancreatis, vertigo History of Any Multi-Drug Resistant Organisms: None Reported Past Surgical History: No Surgical Hx Reported Past Psychological History: ADD/ADHD, Anxiety, Bipolar, Depression Smoking Status: Never smoker Past Alcohol Use History: None Reported Past Drug Use History: None Reported General Exam Limitations: no limitations General appearance: alert, in no apparent distress Head exam: Present: atraumatic, normocephalic, normal inspection Eye exam: Present: normal appearance, PERRL, EOMI. Absent: scleral icterus, conjunctival injection, periorbital swelling ENT exam: Present: normal exam, mucous membranes moist Neck exam: Present: normal inspection, full ROM. Absent: tenderness, m eningismus, lymphadenopathy Respiratory exam: Present: normal lung sounds bilaterally. Absent: respiratory distress, wheezes, rales, rhonchi, stridor Cardiovascular Exam: Present: regular rate, normal rhythm, normal heart sounds. Absent: systolic murmur, diastolic murmur, rubs, gallop, clicks GI/Abdominal exam: Present: soft, normal bowel sounds. Absent: distended, tenderness, guarding, rebound, rigid Neurological exam: Present: alert Course Vital Signs 09/04/20 10:58 Temperature 97.6 F Pulse Rate 84 Respiratory 18 Rate Blood Pressure 111/74 O2 Sat by Pulse 99 Oximetry Medical Decision Making - Medical Decision Making Vitals are stable. HPI physical exam as documented. CBC is normal with hemoglobin of 13.5. CMP unremarkable. Urinalysis does show 87 red blood cells. Blood type is A+. HCG was however negative. Ultrasound shows no evidence of intrauterine . At this time it is unknown if patient was previous a although she states that she did have a positive test. She will need a follow-up with her [employer]OVATOR. Discussed to return here if bleeding becomes heavy such as soaking a pad an hour - Lab Data Result diagrams: 09/04/20 11:27 09/04/20 11:27 Lab Results 09/04/20 09/04/20 09/04/20 Range/Units 11:27 11:27 11:27 WBC 4.8 (3.8-10.6) k/uL RBC 4.22 (3.80-5.40) m/uL Hgb 13.5 (11.4-16.0) gm/dL Hct 39.7 (34.0-46.0) % MCV 93.9 (80.0-100.0) fL MCH 32.0 (25.0-35.0) pg MCHC 34.0 (31.0-37.0) g/dL RDW 13.1 (11.5-15.5) % Plt Count 225 (150-450) k/uL MPV 8.1 Neutrophils % 69 % Lymphocytes % 22 % Monocytes % 6 % Eosinophils % 1 % Basophils % 0 % Neutrophils # 3.3 (1.3-7.7) k/uL Lymphocytes # 1.1 (1.0-4.8) k/uL Monocytes # 0.3 (0-1.0) k/uL Eosinophils # 0.1 (0-0.7) k/uL Basophils # 0.0 (0-0.2) k/uL Sodium 137 (137-145) mmol/L Potassium 4.0 (3.5-5.1) mmol/L Chloride 106 (98-107) mmol/L Carbon Dioxide 26 (22-30) mmol/L Anion Gap 5 mmol/L BUN 17 (7-17) mg/dL Creatinine 0.76 (0.52-1.04) mg/dL Est GFR (CKD-EPI)AfAm >90 (>60 ml/min/1.73 sqM) Est GFR (CKD-EPI)NonAf >90 (>60 ml/min/1.73 sqM) Glucose 90 (74-99) mg/dL Calcium 9.1 (8.4-10.2) mg/dL Total Bilirubin 0.4 (0.2-1.3) mg/dL AST 17 (14-36) U/L ALT 9 (4-34) U/L Alkaline Phosphatase 46 (38-126) U/L Total Protein 6.5 (6.3-8.2) g/dL Albumin 4.0 (3.5-5.0) g/dL HCG, Quant <2.4 mIU/mL Urine Color Urine Appearance (Clear) Urine pH (5.0-8.0) Ur Specific [place] (1.001-1.035) Urine Protein (Negative) Urine Glucose (UA) (Negative) Urine Ketones (Negative) Urine Blood (Negative) Urine Nitrite (Negative) Urine Bilirubin (Negative) Urine Urobilinogen (<2.0) mg/dL Ur Leukocyte Esterase (Negative) Urine RBC (0-5) /hpf Urine WBC (0-5) /hpf Ur Squamous Epith Cells (0-4) /hpf Urine Mucus (None) /hpf Blood Type A Positive Blood Type Recheck A Pos Bld Type Recheck Status No 09/04/20 Range/Units 12:13 WBC (3.8-10.6) k/uL RBC (3.80-5.40) m/uL Hgb (11.4-16.0) gm/dL Hct (34.0-46.0) % MCV (80.0-100.0) fL MCH (25.0-35.0) pg MCHC (31.0-37.0) g/dL RDW (11.5-15.5) % Plt Count (150-450) k/uL MPV Neutrophils % % Lymphocytes % % Monocytes % % Eosinophils % % Basophils % % Neutrophils # (1.3-7.7) k/uL Lymphocytes # (1.0-4.8) k/uL Monocytes # (0-1.0) k/uL Eosinophils # (0-0.7) k/uL Basophils # (0-0.2) k/uL Sodium (137-145) mmol/L Potassium (3.5-5.1) mmol/L Chloride (98-107) mmol/L Carbon Dioxide (22-30) mmol/L Anion Gap mmol/L BUN (7-17) mg/dL Creatinine (0.52-1.04) mg/dL Est GFR (CKD-EPI)AfAm (>60 ml/min/1.73 sqM) Est GFR (CKD-EPI)NonAf (>60 ml/min/1.73 sqM) Glucose (74-99) mg/dL Calcium (8.4-10.2) mg/dL Total Bilirubin (0.2-1.3) mg/dL AST (14-36) U/L ALT (4-34) U/L Alkaline Phosphatase (38-126) U/L Total Protein (6.3-8.2) g/dL Albumin (3.5-5.0) g/dL HCG, Quant mIU/mL Urine Color Yellow Urine Appearance Clear (Clear) Urine pH 7.0 (5.0-8.0) Ur Specific [place] 1.023 (1.001-1.035) Urine Protein Negative (Negative) Urine Glucose (UA) Negative (Negative) Urine Ketones Negative (Negative) Urine Blood Large H (Negative) Urine Nitrite Negative (Negative) Urine Bilirubin Negative (Negative) Urine Urobilinogen <2.0 (<2.0) mg/dL Ur Leukocyte Esterase Trace H (Negative) Urine RBC 87 H (0-5) /hpf Urine WBC 3 (0-5) /hpf Ur Squamous Epith Cells 3 (0-4) /hpf Urine Mucus Few H (None) /hpf Blood Type Blood Type Recheck Bld Type Recheck Status Disposition Clinical Impression: Vaginal bleeding Narrative: negative serum HCG Disposition: HOME SELF-CARE Condition: Good Instructions (If sedation given, give patient instructions): Dysfunctional Uterine Bleeding (ED) Additional Instructions: Please follow-up with your doctor in one to 2 days. Return to the emergency room for any worsening symptoms. Is patient prescribed a controlled substance at d/c from ED?: No Referrals: Theron Camarillo DO [REFERRING] - 1-2 days Time of Disposition: 12:49
--- NOTE | 2020-09-04 12:23 | US ---
EXAMINATION TYPE: Transabdominal DATE OF EXAM: 09/04/2020 12:09 PM COMPARISON: NONE CLINICAL HISTORY: pain. bleeding EXAM PERFORMED: Transvaginal (TV) and Transabdominal (TA) EXAM MEASUREMENTS: GESTATIONAL AGE / DATING Physician Established: Not yet established Dates by LMP: unsure, patient estimates approximately 5 weeks. Dates by First Scan: No previous this is first scan Dates by Current Scan for: No IUP seen at this t erick MATERNAL ANATOMY Uterus: 7.6 x 3.9 x 4.2 cm Right Ovary: not seen Left Ovary: 3.9 x 1.7 x 3.4 cm Post CDS / Adnexa: wnl Presence of free fluid: small amount of free fluid cul de sac. GESTATION / SURVEY No evidence for IUP at this time. Date of LMP: unknown Beta HcG (if available): not available No evidence for IUP at this time. No adnexal masses seen. No decidual reaction appreciated. IMPRESSION: No evidence of intrauterine . If the patient is positive for beta hCG differential diagnosis would include normal too early to detect, missed or ectopic . Correlate with serial beta hCG and pelvic ultrasound as clinically warranted. There is a small amount of free f luid within the cul-de-sac correlate clinically.
[2020-09-04 12:36] LABS: Appearance,Urine Clear (Clear); Bilirubin,Urine Negative (Negative); Blood,Urine Large (Negative); Color,Urine Yellow; Glucose,Urine (UA) Negative (Negative); Ketones,Urine Negative (Negative); Leukocyte Esterase,Urine Trace (Negative); Mucus,Urine Few /hpf; Nitrite,Urine Negative (Negative); Protein,Urine Negative (Negative); RBC,Urine 87 /hpf (0-5); Specific Gravity,Urine 1.023 (1.001-1.035); Squamous Epithelial Cell,Urine 3 /hpf (0-4); Urobilinogen,Urine <2.0 mg/dL (<2.0); WBC,Urine 3 /hpf (0-5)
[2020-09-04 13:14] VITALS: BP 112/88; PULSE 88; RESP 16
== END 2020-09-04 13:30 | disposition home or self-care (01) ==
LOC: EC 10:57
DX: O20.9 Hemorrhage in early pregnancy, unspecified (principal); Z3A.01 Less than 8 weeks gestation of pregnancy
CPT/HCPCS: 36415; 76801; 76817; 80053; 81001; 84702; 85025; 86900; 86901; 96360; 96361; 99284

== ENCOUNTER 2020-10-01 10:52 | Emergency (ER) | payer OTHER ==
[2020-10-01 11:29] VITALS: BP 107/68; PULSE 79; RESP 18; TEMP 98
[2020-10-01] MEDS ORDERED: diphenhydrAMINE 50 MG/ML 1 ML VIAL IVP STA (11:44)
[2020-10-01] MEDS ORDERED: METOCLOPRAMIDE 5 MG/ML 2 ML VIAL IVP STA (11:44)
[2020-10-01] MEDS ORDERED: SODIUM CHLORIDE 0.9% 1,000 ML IV STA (11:44)
[2020-10-01 12:34] LABS: Basophils % (A) 0 %; Eosinophils % (A) 0 %; HCT 40.3 % (34.0-46.0); HGB 13.5 gm/dL (11.4-16.0); Lymphocytes # (A) 1.5 k/uL (1.0-4.8); Lymphocytes % (A) 22 %; MCH 31.6 pg (25.0-35.0); MCHC 33.5 g/dL (31.0-37.0); MCV 94.4 fL (80.0-100.0); Mean Platelet Volume 8.6; Monocytes # (A) 0.3 k/uL (0-1.0); Monocytes % (A) 4 %; Neutrophils % (A) 71 %; Platelet Count 212 k/uL (150-450); RBC 4.27 m/uL (3.80-5.40); RDW 13.3 % (11.5-15.5)
--- NOTE | 2020-10-01 12:47 | ED ---
Back Pain HPI - General Chief Complaint: Back Pain/Injury Stated Complaint: Rib pain Time Seen by Provider: 10/01/20 11:31 Source: patient Limitations: no limitations - History of Present Illness Initial Comments: 25-year-old female, presenting to emergency Department with a chief complaint of . Patient reports she took multiple home test and she was positive. Patient reports she could not get to her OB, for quite some time, so she decided to come into the emergency department for further evaluation. She also reports pain in the left side of the lower ribs. Patient reports she cannot discern whether this is chest or abdominal pain. She does report feeling slightly nauseous but no vomiting diarrhea constipation. She denies any chest pain or shortness of breath. Denies any vaginal discharge, bleeding, foul smell or itching. Denies increased urgency or frequency or dysuria. Denies hematuria, hematochezia or melena. - Related Data Home Medications Medication Instructions Recorded Confirmed Ondansetron HCl [Zofran] 4 mg PO BID 02/14/19 03/05/19 Pnv No.95/Ferrous Fum/Folic AC 1 each PO DAILY 03/05/19 03/05/19 [ Multivitamin Tablet] Allergies Allergy/AdvReac Type Severity Reaction Status Date / Time latex Allergy Rash/Hives Verified 10/01/20 11:29 Review of Systems ROS Statement: Those systems with pertinent positive or pertinent negative responses have been documented in the HPI. ROS Other: All systems not noted in ROS Statement are negative. Past Medical History Past Medical History: No Reported History Additional Past Medical History / Comment(s): pancreatis, vertigo History of Any Multi-Drug Resistant Organisms: None Reported Past Surgical History: No Surgical Hx Reported Past Psychological History: ADD/ADHD, Anxiety, Bipolar, Depression Smoking Status: Never smoker Past Alcohol Use History: None Reported Past Drug Use History: None Reported General Exam Limitations: no limitations General appearance: alert, in no apparent distress Head exam: Present: atraumatic, normocephalic, normal inspection Eye exam: Present: normal appearance, PERRL, EOMI Pupils: Present: normal accommodation ENT exam: Present: normal exam, normal oropharynx, mucous membranes moist Neck exam: Present: normal inspection, full ROM. Absent: tenderness, lymphadenopathy Respiratory exam: Present: normal lung sounds bilaterally. Absent: respiratory distress, wheezes, rales, rhonchi, stridor Cardiovascular Exam: Present: regular rate, normal rhythm, normal heart sounds. Absent: systolic murmur GI/Abdominal exam: Present: soft, tenderness (Tenderness over the left lower region of ribs and the left upper quadrant of the abdomen). Absent: distended, guarding, rebound, rigid Extremities exam: Present: normal inspection, full ROM. Absent: tenderness Back exam: Present: normal inspection, full ROM. Absent: tenderness, CVA tenderness (R), CVA tenderness (L) Neurological exam: Present: alert, oriented X3 Psychiatric exam: Present: normal affect, normal mood Skin exam: Present: warm, dry, intact, normal color Course Vital Signs 10/01/20 11:25 Temperature 98.0 F Pulse Rate 79 Respiratory 18 Rate Blood Pressure 107/68 O2 Sat by Pulse 98 Oximetry Medical Decision Making - Medical Decision Making 25-year-old female, presenting to emergency Department with a chief complaint of . On physical examination, tenderness over the left lower ribs. No significant tenderness in the abdomen. Patient was given antiemetics and IV fluids. CBC CMP UA unremarkable. HCG Quant is 89. Patient essentially here to obtain ultrasound. I advised that it is too early at this point for anything to detectable on the ultrasound. Chest x-rays unremarkable. I advised her that there is a possibility for pulmonary embolism and a d-dimer would have to be obtained which if it is elevated, she would need to undergo CT imaging that potentially could be harmful to the fetus. Patient states she would only prefer to get the x-ray. She does not have any abdominal pain, cramping, vaginal or urinary symptoms. No vaginal bleeding of any kind. She did not have any shortness of breath. I advised to follow up with her OB. Case discussed with Dr. Mohr. - Lab Data Result diagrams: 10/01/20 12:19 10/01/20 12:19 Lab Results 10/01/20 10/01/20 10/01/20 Range/Units 12:19 12:19 12:19 WBC 7.0 (3.8-10.6) k/uL RBC 4.27 (3.80-5.40) m/uL Hgb 13.5 (11.4-16.0) gm/dL Hct 40.3 (34.0-46.0) % MCV 94.4 (80.0-100.0) fL MCH 31.6 (25.0-35.0) pg MCHC 33.5 (31.0-37.0) g/dL RDW 13.3 (11.5-15.5) % Plt Count 212 (150-450) k/uL MPV 8.6 Neutrophils % 71 % Lymphocytes % 22 % Monocytes % 4 % Eosinophils % 0 % Basophils % 0 % Neutrophils # 5.0 (1.3-7.7) k/uL Lymphocytes # 1.5 (1.0-4.8) k/uL Monocytes # 0.3 (0-1.0) k/uL Eosinophils # 0.0 (0-0.7) k/uL Basophils # 0.0 (0-0.2) k/uL Sodium 138 (137-145) mmol/L Potassium 4.2 (3.5-5.1) mmol/L Chloride 106 (98-107) mmol/L Carbon Dioxide 25 (22-30) mmol/L Anion Gap 7 mmol/L BUN 19 H (7-17) mg/dL Creatinine 0.74 (0.52-1.04) mg/dL Est GFR (CKD-EPI)AfAm >90 (>60 ml/min/1.73 sqM) Est GFR (CKD-EPI)NonAf >90 (>60 ml/min/1.73 sqM) Glucose 91 (74-99) mg/dL Calcium 9.4 (8.4-10.2) mg/dL Total Bilirubin 0.3 (0.2-1.3) mg/dL AST 19 (14-36) U/L ALT 10 (4-34) U/L Alkaline Phosphatase 43 (38-126) U/L Total Protein 6.9 (6.3-8.2) g/dL Albumin 4.3 (3.5-5.0) g/dL HCG, Quant 89.0 mIU/mL Urine Color Yellow Urine Appearance Cloudy H (Clear) Urine pH 6.5 (5.0-8.0) Ur Specific [place] 1.026 (1.001-1.035) Urine Protein Negative (Negative) Urine Glucose (UA) Negative (Negative) Urine Ketones Negative (Negative) Urine Blood Negative (Negative) Urine Nitrite Negative (Negative) Urine Bilirubin Negative (Negative) Urine Urobilinogen <2.0 (<2.0) mg/dL Ur Leukocyte Esterase Trace H (Negative) Urine RBC 2 (0-5) /hpf Urine WBC 3 (0-5) /hpf Ur Squamous Epith Cells 9 H (0-4) /hpf Urine Bacteria Rare H (None) /hpf Urine Mucus Occasional H (None) /hpf Disposition Clinical Impression: Rib pain on left side Disposition: HOME SELF-CARE Condition: Stable Instructions (If sedation given, give patient instructions): First Trimester (ED) Additional Instructions: Please return to the Emergency Department if symptoms worsen or any other concerns. Is patient prescribed a controlled substance at d/c from ED?: No Referrals: None,Stated [Primary Care Provider] - 1-2 days Time of Disposition: 14:13
[2020-10-01 12:52] LABS: ALT 10 U/L (4-34); AST 19 U/L (14-36); African American GFR (CKD) >90 (>60 ml/min/1.73 sqM); Albumin 4.3 g/dL (3.5-5.0); Alkaline Phosphatase 43 U/L (38-126); Anion Gap 7 mmol/L; Blood Urea Nitrogen 19 mg/dL (7-17); Calcium 9.4 mg/dL (8.4-10.2); Carbon Dioxide 25 mmol/L (22-30); Chloride 106 mmol/L (98-107); Glucose 91 mg/dL (74-99); Non-African American GFR(CKD) >90 (>60 ml/min/1.73 sqM); Potassium 4.2 mmol/L (3.5-5.1); Sodium 138 mmol/L (137-145); Total Bilirubin 0.3 mg/dL (0.2-1.3); Total Protein 6.9 g/dL (6.3-8.2)
--- NOTE | 2020-10-01 13:14 | XR ---
EXAMINATION TYPE: XR chest 2V DATE OF EXAM: 10/01/2020 COMPARISON: 01/18/2018 TECHNIQUE: PA and lateral views submitted. HISTORY: Pain FINDINGS: The lungs are clear and there is no pneumothorax, pleural effusion, or focal pneumonia. Heart size normal. No overt failure. IMPRESSION: 1. No acute process.
[2020-10-01 13:44] LABS: Appearance,Urine Cloudy (Clear); Bacteria,Urine Rare /hpf; Bilirubin,Urine Negative (Negative); Blood,Urine Negative (Negative); Color,Urine Yellow; Glucose,Urine (UA) Negative (Negative); Ketones,Urine Negative (Negative); Leukocyte Esterase,Urine Trace (Negative); Mucus,Urine Occasional /hpf; Nitrite,Urine Negative (Negative); PH, Urine 6.5 (5.0-8.0); Protein,Urine Negative (Negative); RBC,Urine 2 /hpf (0-5); Specific Gravity,Urine 1.026 (1.001-1.035); Squamous Epithelial Cell,Urine 9 /hpf (0-4); Urobilinogen,Urine <2.0 mg/dL (<2.0); WBC,Urine 3 /hpf (0-5)
== END 2020-10-01 14:33 | disposition home or self-care (01) ==
LOC: EC 10:52
DX: O26.899 Other specified pregnancy related conditions, unspecified trimester (principal); R07.81 Pleurodynia; Z3A.00 Weeks of gestation of pregnancy not specified
CPT/HCPCS: 36415; 80053; 85025; 81001; 84702; 71046; 96374; 96375; 96361; 99283; J1200; J2765

== ENCOUNTER 2020-12-24 08:50 | Emergency (ER) | payer OTHER ==
[2020-12-24 08:58] VITALS: RESP 18; TEMP 98.7
[2020-12-24] MEDS ORDERED: ACETAMINOPHEN TAB 325 MG TAB PO STA (09:28)
--- NOTE | 2020-12-24 09:30 | ED ---
General Adult HPI - General Chief complaint: Fall Stated complaint: Fall Time Seen by Provider: 12/24/20 09:00 Source: patient, RN notes reviewed Mode of arrival: EMS Limitations: no limitations - History of Present Illness Initial comments: Patient is a pleasant 25-year-old female presenting to the emergency department following a fall. Patient was walking down her steps when she slipped on her child's toy. Patient landed on her lower back. A avalos has discomfort of her lower back, moderate. Patient also has some mild lower abdominal discomfort. Patient is 17 weeks gravid. No incontinence or retention of bowel or bladder. No vaginal bleeding. No leg weakness or paresthesias or loss of sensation. - Related Data Home Medications Medication Instructions Recorded Confirmed No Known Home Medications 12/24/20 12/24/20 Allergies Allergy/AdvReac Type Severity Reaction Status Date / Time latex Allergy Rash/Hives Verified 12/24/20 10:33 amparo Allergy Anaphylaxis Verified 12/24/20 10:33 Review of Systems ROS Statement: Those systems with pertinent positive or pertinent negative responses have been documented in the HPI. ROS Other: All systems not noted in ROS Statement are negative. Constitutional: Denies: fever Eyes: Denies: eye pain ENT: Denies: ear pain Respiratory: Denies: cough Cardiovascular: Denies: chest pain Endocrine: Denies: fatigue Gastrointestinal: Reports: as per HPI Genitourinary: Denies: dysuria, frequency, hematuria Musculoskeletal: Reports: as per HPI Skin: Denies: rash Neurological: Denies: weakness Past Medical History Past Medical History: No Reported History Additional Past Medical History / Comment(s): pancreatis, vertigo History of Any Multi-Drug Resistant Organisms: None Reported Past Surgical History: No Surgical Hx Reported Past Psychological History: ADD/ADHD, Anxiety, Bipolar, Depression Smoking Status: Never smoker Past Alcohol Use History: None Reported Past Drug Use History: None Reported General Exam Limitations: no limitations General appearance: alert, in no apparent distress Head exam: Present: atraumatic, normocephalic Eye exam: Present: normal appearance Neck exam: Present: normal inspection. Absent: tenderness Respiratory exam: Present: normal lung sounds bilaterally Cardiovascular Exam: Present: regular rate, normal rhythm Expanded Peripheral pulses: 2+: Posterior Tibialis (R), Posterior Tibialis (L) GI/Abdominal exam: Present: soft, tenderness (Mild suprapubic tenderness), normal bowel sounds. Absent: guarding, rebound, rigid, pulsatile mass Extremities exam: Present: normal inspection, full ROM. Absent: tenderness Back exam: Present: vertebral tenderness (Mild tenderness L3 through 5.) Neurological exam: Present: alert. Absent: motor sensory deficit Expanded Neurological exam: Present: protecting the airway Speech: Present: fluid speech Sensory exam: Lower Extremity Light Touch: Normal Motor strength exam: RLE: 5, LLE: 5 Eye Response: (4) open spontaneously Motor Response: (6) obeys commands Verbal Response: (5) oriented Psychiatric exam: Present: normal affect, normal mood Skin exam: Present: normal color Course Vital Signs 12/24/20 08:51 Temperature 98.7 F Pulse Rate 98 Respiratory 18 Rate Blood Pressure 118/78 O2 Sat by Pulse 99 Oximetry Medical Decision Making - Medical Decision Making Patient reevaluated and resting comfortably in bed. Patient again refuses lumbar x-rays. Patient updated on RESULTS AND NEED FOR FOLLOW-UP. PATIENT STATES SHE SEES DR. JOSE OUT OF [facility] AND WILL FOLLOW-UP. - Radiology Data Radiology results: report reviewed (Ultrasound shows IUP 16 weeks 3 days.) Disposition Clinical Impression: Fall Disposition: HOME SELF-CARE Condition: Stable Instructions (If sedation given, give patient instructions): Trauma During (ED) Additional Instructions: Continue [id number] Tylenol as needed. Please do follow-up with your CORPORATE SPECIALIST in the next day or 2 for recheck, call today. Return for increased pain, bleeding, weakness, loss of control of bowel or bladder, worsening symptoms or other concerns. Is patient prescribed a controlled substance at d/c from ED?: No Referrals: Devorah Spears DO [Doctor of Osteopathic Medicine] - 1-2 days Vijaya Weinstein MD [STAFF PHYSICIAN] - 1-2 days Time of Disposition: 10:40
--- NOTE | 2020-12-24 10:25 | US ---
EXAMINATION TYPE: US OB >= 14 wk fetus DATE OF EXAM: 12/24/2020 COMPARISON: US 2020 CLINICAL HISTORY: painPatient fell down stairs today TECHNIQUE: Transabdominal pelvic ultrasound scanning GESTATIONAL AGE / DATING Physician Established: (16 weeks/0 days) EDC: 06/10/2021 Dates by LMP: Unknown Dates by First Scan: No IUP seen on first scan Dates by Current Scan: (16 weeks/3 days) EDC: 06/07/2021 SURVEY IUP: Single PLACENTA: Anterior PREVIA: Low Lying JYOTHI: 11.6 cm Normal CERVICAL LENGTH (transabdominal: norm > 3.0cm): 3.7 cm BIOMETRY PRESENTATION: Vertex LIE: Longitudinal BPD: 3.5 cm 16 weeks / 5 days HC: 12.5 cm 16 weeks / 2 days AC: 10.6 cm 16 weeks / 4 days FL: 1.9 cm 15 weeks / 5 days ESTIMATED WEIGHT IN GRAMS: 148 grams ESTIMATED WEIGHT IN LBS/OZ: 0 lbs. 5 oz. WEIGHT PERCENTAGE BASED ON ESTABLISHED DATES: 54% HC/AC: 1.18 Normal FL/AC: 18.12 HEART RATE: 149 bpm RHYTHM: Normal Viable single IUP measuring 16 weeks 3 days with a heart rate of 149bpm and an estimated delivery graciela e of 06/07/2021. IMPRESSION: Single viable intrauterine corresponding to an ultrasound age 16 weeks 3 days with estimate d date of delivery 06/07/2021 by today's exam, limited survey
[2020-12-24 10:55] VITALS: BP 116/76; PULSE 82
== END 2020-12-24 10:59 | disposition home or self-care (01) ==
LOC: EC 08:50
DX: O26.892 Other specified pregnancy related conditions, second trimester (principal); F41.9 Anxiety disorder, unspecified; F31.9 Bipolar disorder, unspecified; Z3A.17 17 weeks gestation of pregnancy; Z91.040 Latex allergy status
CPT/HCPCS: 76805; 99284

== ENCOUNTER 2021-01-22 10:24 | Inpatient (IN) | payer OTHER ==
[2021-01-22] MEDS ORDERED: TERBUTALINE 1 MG/ML VIAL SQ PRN (10:54)
[2021-01-22] MEDS ORDERED: CARBOPROST TROMETHAMINE 250 MCG/ML 1 ML AMP IM PRN (10:54)
[2021-01-22] MEDS ORDERED: LIDOCAINE 0.5% (PF) 5 MG/ML (50 ML SDV) SQ PRN (10:54)
[2021-01-22] MEDS ORDERED: OXYTOCIN 10 UNIT/ML 1 ML VIAL IM PRN (10:54)
[2021-01-22] MEDS ORDERED: METHYLERGONOVINE 0.2 MG/ML 1 ML AMP IM PRN (10:54)
[2021-01-22 10:58] LABS: HCT 39.4 % (34.0-46.0); HGB 12.9 gm/dL (11.4-16.0); MCH 31.7 pg (25.0-35.0); MCHC 32.7 g/dL (31.0-37.0); MCV 97.1 fL (80.0-100.0); Mean Platelet Volume 8.6; Platelet Count 110 k/uL (150-450); RBC 4.06 m/uL (3.80-5.40); RDW 13.4 % (11.5-15.5); WBC 8.5 k/uL (3.8-10.6)
[2021-01-22] MEDS ORDERED: LACTATED RINGERS 1,000 ML IV SCH (11:00)
[2021-01-22 11:04] VITALS: RESP 16
[2021-01-22] MEDS: BUTORPHANOL 1 MG/ML 1 ML VIAL IV PRN ×2 (11:16→13:11)
--- NOTE | 2021-01-22 11:37 | P.HPOB ---
History of Present Illness H&P Date: 01/22/21 Chief Complaint: Abdominal pain and vaginal bleeding This is a 25-year-old 2 para 1 who reports she's approximately 20 weeks and [address] Camarillo for the . She reports sudden onset of severe lower abdominal pain, intermittent, "like contractions" approximately 4 hours ago. She had bloody mucousy vaginal discharge. She reports recently being treated for an upper respiratory tract infection. She reports episodes of leakage of fluids from the vagina for several weeks. She had a routine scheduled ultrasound 4 days ago in the office which she reports she was told some images could not be obtained because the baby was "too low". She denies any other complications in the . Her obstetric history is significant for a previous term vaginal delivery. Initial evaluation at the bedside using handheld ultrasound shows fetus in the breech presentation low in the maternal pelvis with no detectable cardiac activity or movement. Formal transabdominal obstetric ultrasound confirms no evidence of cardiac activity or movement. Review of Systems Constitutional: Reports fever, Denies chills Cardiovascular: Denies high blood pressure, Denies shortness of breath Respiratory: Reports as per HPI, Reports congestion, Reports cough, Reports respiratory infections, Denies dyspnea Gastrointestinal: Reports abdominal pain, Denies BRBPR, Denies constipation, Denies diarrhea, Denies nausea, Denies vomiting Genitourinary: Reports abnormal vaginal bleeding, Reports Menstruation: Reports as per HPI Musculoskeletal: Reports low back pain Integumentary: Denies rash Neurological: Denies headaches Hematologic/Lymphatic: Denies easy bleeding, Denies easy bruising Past Medical History Past Medical History: No Reported History Additional Past Medical History / Comment(s): pancreatis, vertigo History of Any Multi-Drug Resistant Organisms: None Reported Past Surgical History: No Surgical Hx Reported Smoking Status: Never smoker Medications and Allergies Home Medications Medication Instructions Recorded Confirmed Type Pnv,Calcium 72/Iron/Folic Acid 1 tab PO DAILY 01/22/21 01/22/21 History [ Plus Tablet] Allergies Allergy/AdvReac Type Severity Reaction Status Date / Time latex Allergy Rash/Hives Verified 01/22/21 10:26 amparo Allergy Anaphylaxis Verified 01/22/21 10:26 Exam Vital Signs Pulse Resp BP Pulse Ox 01/22/21 10:58 91 16 115/71 97 Intake and Output 01/21/21 01/22/21 01/22/21 22:59 06:59 14:59 Other: Weight 53.977 kg This is a visibly uncomfortable and distraught female. Targeted physical exam is performed. HEENT exam is remarkable for obvious rhinorrhea, co ngestion and cough. The abdomen is tender to palpation with uterus palpable at the umbilicus. On pelvic examination she has a small amount of bright red blood. The low uterine segment is very low in the vaginal canal and the cervix is posterior and 3+ centimeters dilated with no presenting part and bulging membranes. Results Result Diagrams: 01/22/21 10:43 Abnormal Lab Results - Last 24 Hours (Table) 01/22/21 Range/Units 10:43 Plt Count 110 L (150-450) k/uL Assessment and Plan (1) 20 weeks gestation of Current Visit: Yes Status: Acute Code(s): Z3A.20 - 20 WEEKS GESTATION OF SNOMED Code(s): 88994933 (2) demise Current Visit: Yes Status: Acute Code(s): YVZ0656 - SNOMED Code(s): 914230220 (3) labor in second trimester Current Visit: Yes Status: Acute Code(s): O60.02 - LABOR WITHOUT DELIVERY, SECOND TRIMESTER SNOMED Code(s): 6815512 (4) Upper respiratory infection Current Visit: Yes Status: Acute Code(s): J06.9 - ACUTE UPPER RESPIRATORY INFECTION, UNSPECIFIED SNOMED Code(s): 47248868 Plan: This is a 25-year-old 2 para 1 woman who presents in spontaneous labor at 20 weeks with demise confirmed by ultrasound. Findings and situation are reviewed in detail with the patient and all questions are answered to the best of my ability. The anesthesiologist has been contacted for pain management during labor. They will assess for placement of epidural. If appropriate we will then augment labor with Pitocin. She does have an upper respiratory tract infection which she reports was diagnosed as RSV. She reports history of negative [place] and test. Symptomatic care.
[2021-01-22 11:40] LABS: Lymphocytes # (M) 1.53 k/uL (1.0-4.8); Monocytes # (M) 0.09 k/uL (0-1.0); Neutrophils # (M) 6.89 k/uL (1.3-7.7); Neutrophils % (M) 81 %; Nucleated Red Blood Cells 0 /100 WBC (0-0); Total Cells Counted 100
--- NOTE | 2021-01-22 11:52 | US ---
EXAMINATION TYPE: US OB limited DATE OF EXAM: 01/22/2021 COMPARISON: US CLINICAL HISTORY: Bleeding, Heart Tones. Assess for heart tones as absent by pocket Doppler and per Dr. Zhang EXAM PERFORMED: Transabdominal (TA) GESTATIONAL AGE / DATING Physician Established: (20 weeks/1 day) EDC: 06/10/2021 No growth performed on today?s study per ordering physician SURVEY (Tech?if abnormal transabdominally?image transvaginally to substantiate abnormality.) PRESENTATION: Breech HEART RATE: absent heart tones as no color flow is seen in Brain or in abdominal body cavities. No movement was seen by US at patient's bedside. Tech findings reported to Dr Zhang at patient's bedside US exam. IMPRESSION: No heart tones detected
[2021-01-22] MEDS ORDERED: OXYTOCIN 30 UNITS/500 ML NS 30 UNIT in SALINE 1 500ML.BAG IV SCH (12:15)
[2021-01-22 12:47] LABS: Partial Thromboplastin Time 25.6 sec (22.0-30.0); Prothrombin Time 10.4 sec (9.0-12.0)
[2021-01-22 13:50] VITALS: TEMP 97.8
--- NOTE | 2021-01-22 13:55 | P.PROBDLV ---
Vaginal Delivery Note - . Vaginal Delivery Note: ;findings: pre-viable fetus consistent with 20 week gestation. Very minimal sloughing of the feet and hands. No nuchal cord. No obvious morphologic abnormalities. genitalia appears male. Placenta grossly abnormal with notable odor. Entire placental is very firm and uniformly calcified. There is dark adherent clot near the periphery but no large area of abruption. Delivery summary: this is a 25-year-old 2 para 1 woman who presented at approximately 20 weeks' gestation with several hours of worsening abdominal pain and the light vaginal bleeding. She was found on examination to have an intrauterine demise and was in active labor. She was admitted and analgesics and Pitocin were administered. She had a rapid progression from 3 cm to delivered. With maternal effort 1 she delivered a viable infant from the breech presentation. The placenta delivered immediately at the time of the fetus. The uterus was firm and approximately 15 weeks size post delivery. Patient received Pitocin intravenously post delivery. See above findings. EBL less than 100 mL's. I discussed with the patient and her mother my suspicion for an infectious etiology based on the appearance of the placenta and odor. The patient previously stated she had an upper respiratory RSV infection. Cultures will be taken from the placenta and torch titers ordered from maternal serum.
[2021-01-22 16:05] VITALS: BP 114/79; PULSE 87
--- NOTE | 2021-01-23 10:21 | P.DS ---
Providers Date of admission: 01/22/21 11:07 Expected date of discharge: 01/22/21 Attending physician: Meera Zhang Primary care physician: Stated None - Discharge Diagnosis(es) (1) 20 weeks gestation of Status: Acute (2) demise Status: Acute (3) labor in second trimester Status: Acute (4) Upper respiratory infection Status: Acute (5) Vaginal delivery Status: Acute Hospital Course: This is a 25-year-old 2 para 1 woman who presented to labor and delivery triage at 20 weeks gestation complaining of severe lower abdominal pain and some vaginal bleeding for several hours. She was diagnosed with a intrauterine demise and was in labor with her cervix dilated 3 cm. She was admitted and received Pitocin augmentation and analgesia. She had a rapid delivery of a previable fetus consistent with a 20 week gestation in the breech presentation. The placenta delivered immediately with the and was grossly abnormal in appearance and with odor. Placental cultures were taken. Maternal torch titers were taken. The patient herself reports she and her 1-year-old daughter were both recently diagnosed with upper respiratory virus, RSV. The patient was observed for several hours postdelivery and had very minimal vaginal bleeding. Her vital signs were stable. She had no pain. The patient requested discharge home to care for her other young child and she was deemed medically stable for this. She was discharged home and recommended for close follow-up with her regular lead generation representative in the next 1-2 weeks. Procedures: Vaginal delivery Patient Condition at Discharge: Good Plan - Discharge Summary New Discharge Prescriptions: No Action Pnv,Calcium 72/Iron/Folic Acid [ Plus Tablet] 1 tab PO DAILY Discharge Medication List Pnv,Calcium 72/Iron/Folic Acid [ Plus Tablet] 1 tab PO DAILY 01/22/21 [History] Follow up Appointment(s)/Referral(s): Theron Camarillo DO [REFERRING] - 1 Week Activity/Diet/Wound Care/Special Instructions: Follow-up with regular [facility] within 1 week. Contact our office with any heavy vaginal bleeding, foul vaginal discharge, fever greater than 100.5, severe pelvic pain, redness or swelling of the lower extremities or inability to void. May use [id number] Tylenol and/or ibuprofen as needed for discomfort. Discharge Disposition: HOME SELF-CARE
[2021-01-24 05:04] LABS: Herpes simplex IgG I Ab 0.55 (< or = 0.90); Herpes simplex IgG II Ab 7.81 (< or = 0.90); Toxoplasma Antibody (IgG) <3.0 IU/mL (<7.2)
== END 2021-01-22 18:17 | disposition home or self-care (01) | DRG 770 ==
LOC: FBPOP 10:24 → 4FBP 11:07
PROVIDERS: ADMIT Obstetrics & Gynecology; ATTEND Obstetrics & Gynecology
PROC: 10D17ZZ Extraction of Products of Conception, Retained, Via Natural or Artificial Opening (ICD-10-PCS; principal; 2021-01-22)
PROC: 3E033VJ Introduction of Other Hormone into Peripheral Vein, Percutaneous Approach (ICD-10-PCS; 2021-01-22)
DX: O02.1 Missed abortion (principal); Z3A.20 20 weeks gestation of pregnancy; J06.9 Acute upper respiratory infection, unspecified; Z20.822 Contact with and (suspected) exposure to COVID-19; Z91.02 Food additives allergy status; Z91.040 Latex allergy status; O32.1XX0 Maternal care for breech presentation, not applicable or unspecified
CPT/HCPCS: 76815; 85025; 85610; 85730; 86644; 86645; 86694; 86695; 86696; 86762; 86777; 86778; 86850; 86870; 86880; 86900; 86901; 86902; 87070; 87075; 87205; 87252; 96360; 99213

== ENCOUNTER 2021-05-28 19:34 | Emergency (ER) | payer OTHER ==
[2021-05-28 19:39] VITALS: BP 121/88; PULSE 97; RESP 20; TEMP 98.2
--- NOTE | 2021-05-28 20:15 | ED ---
Chest Pain HPI - General Chief Complaint: Chest Pain Stated Complaint: Chest Pain, SOB Time Seen by Provider: 05/28/21 19:51 Source: patient, RN notes reviewed Mode of arrival: wheelchair Limitations: no limitations - History of Present Illness Initial Comments: This is a pleasant 25-year-old female presents to emergency with ongoing and daily left chest discomfort. She states she feels like something is heavy in her left chest. She states "like a mass." Patient states this been going on since mid January. Patient did have COVID-19 just prior to developing this sensation. She denies any significant shortness of breath. No fever. No productive cough. Patient states she did have a at that time and ended up losing the child here. She states she delivered the baby here. Patient thought she might of had blood thoughts. Patient also concerned about possible urinary tract infection she's had increased frequency. She denies any vaginal bleeding. No headache, no fever or chills, no changes in vision or hearing, no sore throat or difficulty with speech, no neck pain, no shortness of breath, no abdominal pain, no nausea or vomiting, no bowel movements, no numbness or tingling, no extremity pain, no skin rashes or lesions. - Related Data Home Medications Medication Instructions Recorded Confirmed Fluticasone Nasal [place] [Flonase 2 spray EA NOSTRIL BID 05/28/21 05/28/21 Nasal [place]] Penicillin V Potassium [Pen Vee K] 500 mg PO Q2D 05/28/21 05/28/21 Previous Rx's Medication Instructions Recorded Acetaminophen [Tylenol] 500 mg PO Q4-6H PRN #24 tab 05/28/21 Ibuprofen [Motrin Ib] 400 mg PO Q8H PRN #50 tab 05/28/21 Allergies Allergy/AdvReac Type Severity Reaction Status Date / Time latex Allergy Rash/Hives Verified 05/28/21 20:58 amparo Allergy Anaphylaxis Verified 05/28/21 20:58 diphenhydramine AdvReac Nausea & Verified 05/28/21 20:58 [From Benadryl] Vomiting Review of Systems ROS Statement: Those systems with pertinent positive or pertinent negative responses have been documented in the HPI. ROS Other: All systems not noted in ROS Statement are negative. EKG Findings - EKG Comments: EKG Findings:: EKG done at 1945 and read by the ED attending physician reveals sinus rhythm with sinus arrhythmia, rate 87, normal axis, no acute ST or T-wave changes. Normal intervals. Past Medical History Past Medical History: No Reported History Additional Past Medical History / Comment(s): pancreatis, vertigo History of Any Multi-Drug Resistant Organisms: None Reported Past Surgical History: No Surgical Hx Reported Past Anesthesia/Blood Transfusion Reactions: No Reported Reaction Past Psychological History: ADD/ADHD, Anxiety, Bipolar, Depression Smoking Status: Never smoker Past Alcohol Use History: None Reported Past Drug Use History: None Reported - Past Family History Mother Family Medical History: Unable to Obtain General Exam - General Exam Comments Initial Comments: Healthy-appearing female in no acute distress. Limitations: no limitations General appearance: alert, in no apparent distress Head exam: Present: atraumatic, normocephalic, normal inspection Eye exam: Present: normal appearance, PERRL, EOMI. Absent: scleral icterus, conjunctival injection, periorbital swelling ENT exam: Present: normal exam, mucous membranes moist, normal external ear exam Neck exam: Present: normal inspection. Absent: tenderness, meningismus, lymphadenopathy Respiratory exam: Present: normal lung sounds bilaterally, chest wall tenderness, other (Examination chaperoned by a female RN reveals tender area superior to the left nipple. No erythema. Exam consistent with normal palpable ductal tissue. No definitive mass. No axillary adenopathy No nipple discharge). Absent: respiratory distress, wheezes, rales, rhonchi, stridor, accessory muscle use, decreased breath sounds, prolonged expiratory Cardiovascular Exam: Present: regular rate, normal rhythm, normal heart sounds. Absent: systolic murmur, diastolic murmur, rubs, gallop, clicks GI/Abdominal exam: Present: soft, normal bowel sounds. Absent: distended, tenderness, guarding, rebound, rigid Extremities exam: Present: normal inspection, full ROM, normal capillary refill. Absent: tenderness, pedal edema, joint swelling, calf tenderness Back exam: Present: normal inspection Neurological exam: Present: alert, oriented X3, CN II-XII intact Psychiatric exam: Present: normal affect, normal mood Skin exam: Present: warm, dry, intact, normal color. Absent: rash Course Vital Signs 05/28/21 19:36 Temperature 98.2 F Pulse Rate 97 Respiratory 20 Rate Blood Pressure 121/88 O2 Sat by Pulse 100 Oximetry - Reevaluation(s) Reevaluation #1: 05/28/21 22:12 Medical record is reviewed Symptoms are improved here in the emergency department Patient is informed of results and questions answered Patient in no distress Chest Pain MDM - MDM Differential is wide, chest wall pain, fibrocystic breast disease, developing breast abscess, milk duct blockage, does not appear to be consistent with cardiopulmonary disease. Note that the patient was discouraged that she visited late [facility] last week and only had a chest x-ray. His workup appears essentially negative. Ultrasound did not show any abnormality. Given the patient's tenderness to her left superior breast and going to follow her up with gynecology for reevaluation. Patient requesting Dr. Zhang The case was discussed in detail with ED attending physician. Presentation, findings, treatment plan discussed in detail. Patient was told to return to the ER for any signs or symptoms worsen. Told to return immediately if any other problems arise. All questions answered. Treatment plan discussed. Patient in agreement Every effort has been made to ensure accuracy of this dictation. However, due to the limitations of electronic medical records and dictation devices, errors in charting still occur. Disposition Clinical Impression: Breast pain, left, Dehydration Disposition: HOME SELF-CARE Condition: Good Instructions (If sedation given, give patient instructions): Chest Wall Pain (ED), Dehydration (ED) Additional Instructions: Call Sunday to set up an appointment with a manager paper as discussed. Follow-up with your regular physician as directed. Return to the ER immediately if any symptoms worsen, new symptoms arise, or any other problems develop. Use [id number] acetaminophen and/or ibuprofen for pain control if needed. Is patient prescribed a controlled substance at d/c from ED?: No Referrals: Meera Zhang MD [STAFF PHYSICIAN] - As Soon As Possible Time of Disposition: 22:15
[2021-05-28 20:30] LABS: Basophils % (A) 0 %; Eosinophils # (A) 0.1 k/uL (0-0.7); Eosinophils % (A) 1 %; HCT 42.1 % (34.0-46.0); Lymphocytes # (A) 2.5 k/uL (1.0-4.8); Lymphocytes % (A) 32 %; MCHC 33.3 g/dL (31.0-37.0); Mean Platelet Volume 8.4; Monocytes # (A) 0.4 k/uL (0-1.0); Monocytes % (A) 5 %; Neutrophils # (A) 4.7 k/uL (1.3-7.7); Neutrophils % (A) 60 %; Platelet Count 226 k/uL (150-450); RBC 4.68 m/uL (3.80-5.40); RDW 12.6 % (11.5-15.5); WBC 7.8 k/uL (3.8-10.6)
--- NOTE | 2021-05-28 20:33 | XR ---
EXAMINATION TYPE: XR chest 2V DATE OF EXAM: 05/28/2021 COMPARISON: 10/01/2020 HISTORY: Chest pain TECHNIQUE: 2 views FINDINGS: Heart and mediastinum are normal. Lungs are clear. Images normal bony thorax appears normal. IMPRESSION: Normal chest. No change.
[2021-05-28 20:35] LABS: Appearance,Urine Cloudy (Clear); Bilirubin,Urine Negative (Negative); Blood,Urine Negative (Negative); Color,Urine Yellow; Glucose,Urine (UA) Negative (Negative); Hyaline Casts,Urine 1 /lpf (0-2); Ketones,Urine 1+ (Negative); Leukocyte Esterase,Urine Small (Negative); Mucus,Urine Occasional /hpf; Nitrite,Urine Negative (Negative); PH, Urine 5.5 (5.0-8.0); Protein,Urine Trace (Negative); RBC,Urine 3 /hpf (0-5); Specific Gravity,Urine 1.027 (1.001-1.035); Squamous Epithelial Cell,Urine 12 /hpf (0-4); Urobilinogen,Urine <2.0 mg/dL (<2.0); WBC,Urine 4 /hpf (0-5)
[2021-05-28 21:00] LABS: ALT 11 U/L (4-34); AST 19 U/L (14-36); African American GFR (CKD) >90 (>60 ml/min/1.73 sqM); Albumin 4.5 g/dL (3.5-5.0); Alkaline Phosphatase 42 U/L (38-126); Anion Gap 9 mmol/L; Blood Urea Nitrogen 25 mg/dL (7-17); Calcium 9.2 mg/dL (8.4-10.2); Carbon Dioxide 27 mmol/L (22-30); Chloride 102 mmol/L (98-107); Glucose 82 mg/dL (74-99); Magnesium 1.8 mg/dL (1.6-2.3); Non-African American GFR(CKD) >90 (>60 ml/min/1.73 sqM); Potassium 3.7 mmol/L (3.5-5.1); Sodium 138 mmol/L (137-145); Total Bilirubin 0.7 mg/dL (0.2-1.3); Total Protein 7.6 g/dL (6.3-8.2)
[2021-05-28 21:20] LABS: Erythrocyte Sedimentation Rate 4 mm/hr (0-20)
--- NOTE | 2021-05-28 21:30 | USB ---
Left breast ultrasound. History tenderness. Comparison none. FINDINGS: Left breast is scanned and no discrete solid or cystic mass identified. No free fluid. IMPRESSION: Negative left breast sonogram. Category 1 negative.
== END 2021-05-28 22:55 | disposition home or self-care (01) ==
LOC: EC 19:34
DX: N64.4 Mastodynia (principal); E86.0 Dehydration
CPT/HCPCS: 36415; 71046; 80053; 81001; 81025; 83735; 85025; 85652; 93005; 99285

== ENCOUNTER 2021-10-21 17:24 | Emergency (ER) | payer OTHER ==
[2021-10-21 18:44] VITALS: TEMP 98.3
[2021-10-21 19:10] LABS: Appearance,Urine Clear (Clear); Bilirubin,Urine Negative (Negative); Blood,Urine Trace (Negative); Color,Urine Yellow; Glucose,Urine (UA) Negative (Negative); Ketones,Urine Negative (Negative); Leukocyte Esterase,Urine Small (Negative); Mucus,Urine Occasional /hpf; Nitrite,Urine Negative (Negative); PH, Urine 5.5 (5.0-8.0); Protein,Urine Negative (Negative); RBC,Urine 4 /hpf (0-5); Specific Gravity,Urine 1.024 (1.001-1.035); Squamous Epithelial Cell,Urine 6 /hpf (0-4); Urobilinogen,Urine <2.0 mg/dL (<2.0); WBC,Urine 2 /hpf (0-5)
[2021-10-21 21:34] VITALS: BP 129/80; PULSE 68; RESP 17
--- NOTE | 2021-10-21 21:46 | ED ---
General Adult HPI - General Chief complaint: Nausea/Vomiting/Diarrhea Stated complaint: dizzy, nausea Source: patient, RN notes reviewed Mode of arrival: ambulatory - History of Present Illness Initial comments: Patient is a 26-year-old female presenting to the emergency room with complaints of nausea vomiting and fatigue ongoing for a few weeks. She reports that she was concerned she might be and had taken a home test that was positive but she was unsure if the test was accurate as she had taken one last month as well which showed a faint line however she had a three-day menstrual cycle this month. She is emotional as she has is her third in her second resulted in the stillbirth of her baby boy however her first resulted in a healthy female. She is not currently following with an [facility] D[employer] OPERATOR [facility] and is not currently taking any vitamins. - Related Data Home Medications Medication Instructions Recorded Confirmed Fluticasone Nasal [address] [Flonase 2 spray EA NOSTRIL BID 05/28/21 05/28/[address]] Penicillin V Potassium [Pen Vee K] 500 mg PO Q2D 05/28/21 05/28/21 Previous Rx's Medication Instructions Recorded Acetaminophen [Tylenol] 500 mg PO Q4-6H PRN #24 tab 05/28/21 Ibuprofen [Motrin Ib] 400 mg PO Q8H PRN #50 tab 05/28/21 Vit No.179/Iron/Folic 1 each PO DAILY 30 Days #30 tab 10/21/21 [ Tablet] Allergies Allergy/AdvReac Type Severity Reaction Status Date / Time latex Allergy Rash/Hives Verified 10/21/21 18:44 amparo Allergy Anaphylaxis Verified 10/21/21 18:44 diphenhydramine AdvReac Nausea & Verified 10/21/21 18:44 [From Benadryl] Vomiting Review of Systems ROS Statement: Those systems with pertinent positive or pertinent negative responses have been documented in the HPI. ROS Other: All systems not noted in ROS Statement are negative. Past Medical History Past Medical History: No Reported History Additional Past Medical History / Comment(s): pancreatis, vertigo History of Any Multi-Drug Resistant Organisms: None Reported Past Surgical History: No Surgical Hx Reported Past Anesthesia/Blood Transfusion Reactions: No Reported Reaction Past Psychological History: ADD/ADHD, Anxiety, Bipolar, Depression Smoking Status: Never smoker Past Alcohol Use History: None Reported Past Drug Use History: None Reported - Past Family History Mother Family Medical History: Unable to Obtain General Exam Limitations: no limitations General appearance: alert, in no apparent distress Head exam: Present: atraumatic, normocephalic, normal inspection Eye exam: Present: normal appearance, PERRL, EOMI. Absent: scleral icterus, conjunctival injection, periorbital swelling ENT exam: Present: normal exam, mucous membranes moist Neck exam: Present: normal inspection. Absent: tenderness, meningismus, lymphadenopathy Respiratory exam: Present: normal lung sounds bilaterally. Absent: respiratory distress, wheezes, rales, rhonchi, stridor Cardiovascular Exam: Present: regular rate, normal rhythm, normal heart sounds. Absent: systolic murmur, diastolic murmur, rubs, gallop, clicks GI/Abdominal exam: Present: soft, normal bowel sounds. Absent: distended, tenderness, guarding, rebound, rigid Rectal exam: Present: deferred Extremities exam: Present: normal inspection. Absent: pedal edema, joint swelling Back exam: Present: normal inspection, full ROM Neurological exam: Present: alert, oriented X3, CN II-XII intact Psychiatric exam: Present: normal affect, normal mood Skin exam: Present: warm, dry, intact, normal color. Absent: rash Course Vital Signs 10/21/21 10/21/21 18:40 21:34 Temperature 98.3 F Pulse Rate 87 68 Respiratory 18 17 Rate Blood Pressure 197/72 129/80 O2 Sat by Pulse 100 98 Oximetry Medical Decision Making - Medical Decision Making 26-year-old female presenting the emergency room complaints of nausea vomiting and fatigue ongoing for a few weeks and concern for possible . Urinalysis and urine test to be completed. Urinalysis negative for acute infection. Beta hCG urine positive. Discussed findings with patient. Encouraged follow-up with [employer] OPERATOR [facility], compliance with vitamins and avoidance of alcohol, smoking, illicit drugs and caffeinated products. Will start on vitamin regimen. Case discussed with Dr. Berman - Lab Data Lab Results 10/21/21 10/21/21 Range/Units 19:04 19:04 Urine Color Yellow Urine Appearance Clear (Clear) Urine pH 5.5 (5.0-8.0) Ur Specific [place] 1.024 (1.001-1.035) Urine Protein Negative (Negative) Urine Glucose (UA) Negative (Negative) Urine Ketones Negative (Negative) Urine Blood Trace H (Negative) Urine Nitrite Negative (Negative) Urine Bilirubin Negative (Negative) Urine Urobilinogen <2.0 (<2.0) mg/dL Ur Leukocyte Esterase Small H (Negative) Urine RBC 4 (0-5) /hpf Urine WBC 2 (0-5) /hpf Ur Squamous Epith Cells 6 H (0-4) /hpf Urine Mucus Occasional H (None) /hpf Urine HCG, Qual Detected (Not Detectd) Disposition Clinical Impression: Nausea and vomiting during Disposition: HOME SELF-CARE Condition: Good Instructions (If sedation given, give patient instructions): Nausea and Vomiting in (ED) Additional Instructions: Please take your vitamin as prescribed. Please contact [facility] [facility] to establish with a provider. Please return to the Emergency Department if symptoms worsen or any other concerns. Prescriptions: Vit No.179/Iron/Folic [ Tablet] 1 each PO DAILY 30 Days #30 tab Is patient prescribed a controlled substance at d/c from ED?: No Referrals: None,Stated [Primary Care Provider] - 1-2 days Janis Bowling DO [Doctor of Osteopathic Medicine] - 1-2 days Time of Disposition: 21:42
== END 2021-10-21 21:53 | disposition home or self-care (01) ==
LOC: EC 17:24
DX: O26.90 Pregnancy related conditions, unspecified, unspecified trimester (principal); F41.9 Anxiety disorder, unspecified; F31.9 Bipolar disorder, unspecified; Z91.040 Latex allergy status; Z91.018 Allergy to other foods; Z88.8 Allergy status to other drugs, medicaments and biological substances; Z79.899 Other long term (current) drug therapy
CPT/HCPCS: 81001; 81025; 99284

== ENCOUNTER 2021-12-16 15:20 | Emergency (ER) | payer OTHER ==
[2021-12-16 16:28] VITALS: BP 109/67; PULSE 74; RESP 20; TEMP 98.4
--- NOTE | 2021-12-16 21:09 | ED ---
General Adult HPI - General Chief complaint: Abdominal Pain Stated complaint: 12 weeks spotting Time Seen by Provider: 12/16/21 20:28 Source: patient Mode of arrival: ambulatory Limitations: no limitations - History of Present Illness Initial comments: 26-year-old female, , presents to the emergency department for evaluation of light spotting that has since resolved. Patient states she had a small amount of vaginal bleeding upon awakening this morning, however has been in the waiting room for approximately 5 hours and has not had any bleeding since. Has complaints of abdominal discomfort she will attributes to hunger pains as she has not had anything to eat since 10:00 this morning. States she is currently taking an antibiotic prescribed to her for the UTI. Is also prescribed Zofran for ongoing nausea. States she was seen by her CONDITIONING ROOM WORKER on Sunday and had initial blood work and ultrasound done at that time. Endorses movement d uring evaluation. Denies fever, chills, headache, dizziness, chest pain, shortness of breath, diarrhea, dysuria, and hematuria. - Related Data Home Medications Medication Instructions Recorded Confirmed Fluticasone Nasal [place] [Flonase 2 spray EA NOSTRIL BID 05/28/21 05/28/21 Nasal [place]] Penicillin V Potassium [Pen Vee K] 500 mg PO Q2D 05/28/21 05/28/21 Previous Rx's Medication Instructions Recorded Acetaminophen [Tylenol] 500 mg PO Q4-6H PRN #24 tab 05/28/21 Ibuprofen [Motrin Ib] 400 mg PO Q8H PRN #50 tab 05/28/21 Vit No.179/Iron/Folic 1 each PO DAILY 30 Days #30 tab 10/21/21 [ Tablet] Allergies Allergy/AdvReac Type Severity Reaction Status Date / Time latex Allergy Rash/Hives Verified 12/16/21 16:27 amparo Allergy Anaphylaxis Verified 12/16/21 16:27 diphenhydramine AdvReac Nausea & Verified 12/16/21 16:27 [From Benadryl] Vomiting Review of Systems ROS Statement: Those systems with pertinent positive or pertinent negative responses have been documented in the HPI. ROS Other: All systems not noted in ROS Statement are negative. Past Medical History Past Medical History: No Reported History Additional Past Medical History / Comment(s): pancreatis, vertigo History of Any Multi-Drug Resistant Organisms: None Reported Past Surgical History: No Surgical Hx Reported Past Anesthesia/Blood Transfusion Reactions: No Reported Reaction Past Psychological History: ADD/ADHD, Anxiety, Bipolar, Depression Smoking Status: Never smoker Past Alcohol Use History: None Reported Past Drug Use History: None Reported - Past Family History Mother Family Medical History: Unable to Obtain General Exam Limitations: no limitations (Well-developed, well-nourished female in no acute distress.) General appearance: alert, in no apparent distress ENT exam: Present: normal oropharynx Respiratory exam: Present: normal lung sounds bilaterally. Absent: respiratory distress, wheezes, rales, rhonchi, stridor Cardiovascular Exam: Present: regular rate, normal rhythm, normal heart sounds. Absent: systolic murmur, diastolic murmur, rubs, gallop, clicks GI/Abdominal exam: Present: soft, normal bowel sounds. Absent: distended, tenderness, guarding, rebound, rigid Speculum exam: Present: other (declines) Back exam: Absent: CVA tenderness (R), CVA tenderness (L) Neurological exam: Present: alert, oriented X3 Psychiatric exam: Present: agitated (unhappy with length of wait) Skin exam: Present: warm, dry, intact, normal color. Absent: rash Course Vital Signs 12/16/21 16:25 Temperature 98.4 F Pulse Rate 74 Respiratory 20 Rate Blood Pressure 109/67 O2 Sat by Pulse 99 Oximetry - Reevaluation(s) Reevaluation #1: 12/16/21 21:08 Patient declines pelvic exam and ultrasound. Agreeable to FHTs and labs. Provided with snack and discussed obstetric care at length. 12/16/21 23:07 FHTs 140s Medical Decision Making - Medical Decision Making 26-year-old female, , 12 weeks presents to the emergency department for evaluation of light spotting that has since resolved. Upon exam, patient is well-appearing and in no acute distress. She is asking for a work note for her significant other who accompanied her to the emergency department for evaluation today. Patient was quite irritable with the length of the wait and was initially uninterested in a workup as her symptoms had resolved. She was agreeable to laboratory studies and heart tones. Declines pelvic exam. Urinalysis shows trace ketones and protein, large leukocyte esterase, 47 wbcs per HPF, and 15 squamous epithelial cells. Patient is currently on an antibiotic as prescribed by her OB to treat UTI therefore is encouraged to continue taking this medication. Remainder of laboratory studies are unremarkable. heart rate in the 140s. Patient endorses movement. Patient will be discharged home to follow up with her CONDITIONING ROOM WORKER as scheduled. Requested work note was provided. Return parameters discussed in detail. Patient verbalizes understanding and agrees with this plan. Attending: Magno - Lab Data Result diagrams: 12/16/21 22:31 12/16/21 22:31 Lab Results 12/16/21 12/16/21 12/16/21 Range/Units 22:08 22:31 22:31 WBC 8.8 (3.8-10.6) k/uL RBC 3.88 (3.80-5.40) m/uL Hgb 12.5 (11.4-16.0) gm/dL Hct 34.8 (34.0-46.0) % MCV 89.5 (80.0-100.0) fL MCH 32.1 (25.0-35.0) pg MCHC 35.8 (31.0-37.0) g/dL RDW 12.9 (11.5-15.5) % Plt Count 231 (150-450) k/uL MPV 8.2 Neutrophils % 75 % Lymphocytes % 19 % Monocytes % 4 % Eosinophils % 1 % Basophils % 0 % Neutrophils # 6.6 (1.3-7.7) k/uL Lymphocytes # 1.7 (1.0-4.8) k/uL Monocytes # 0.3 (0-1.0) k/uL Eosinophils # 0.1 (0-0.7) k/uL Basophils # 0.0 (0-0.2) k/uL Sodium 136 L (137-145) mmol/L Potassium 3.7 (3.5-5.1) mmol/L Chloride 103 (98-107) mmol/L Carbon Dioxide 27 (22-30) mmol/L Anion Gap 6 mmol/L BUN 11 (7-17) mg/dL Creatinine 0.71 (0.52-1.04) mg/dL Est GFR (CKD-EPI)AfAm >90 (>60 ml/min/1.73 sqM) Est GFR (CKD-EPI)NonAf >90 (>60 ml/min/1.73 sqM) Glucose 120 H (74-99) mg/dL Calcium 8.9 (8.4-10.2) mg/dL Total Bilirubin 0.2 (0.2-1.3) mg/dL AST 14 (14-36) U/L ALT 12 (4-34) U/L Alkaline Phosphatase 45 (38-126) U/L Total Protein 6.5 (6.3-8.2) g/dL Albumin 3.8 (3.5-5.0) g/dL HCG, Quant 51558.3 mIU/mL Urine Color Yellow Urine Appearance Cloudy H (Clear) Urine pH 6.0 (5.0-8.0) Ur Specific [place] 1.034 (1.001-1.035) Urine Protein Trace H (Negative) Urine Glucose (UA) Negative (Negative) Urine Ketones Trace H (Negative) Urine Blood Negative (Negative) Urine Nitrite Negative (Negative) Urine Bilirubin Negative (Negative) Urine Urobilinogen 2.0 (<2.0) mg/dL Ur Leukocyte Esterase Large H (Negative) Urine RBC 4 (0-5) /hpf Urine WBC 47 H (0-5) /hpf Ur Squamous Epith Cells 15 H (0-4) /hpf Urine Bacteria Rare H (None) /hpf Urine Mucus Moderate H (None) /hpf Blood Type Blood Type Recheck Bld Type Recheck Status 12/16/21 Range/Units 22:31 WBC (3.8-10.6) k/uL RBC (3.80-5.40) m/uL Hgb (11.4-16.0) gm/dL Hct (34.0-46.0) % MCV (80.0-100.0) fL MCH (25.0-35.0) pg MCHC (31.0-37.0) g/dL RDW (11.5-15.5) % Plt Count (150-450) k/uL MPV Neutrophils % % Lymphocytes % % Monocytes % % Eosinophils % % Basophils % % Neutrophils # (1.3-7.7) k/uL Lymphocytes # (1.0-4.8) k/uL Monocytes # (0-1.0) k/uL Eosinophils # (0-0.7) k/uL Basophils # (0-0.2) k/uL Sodium (137-145) mmol/L Potassium (3.5-5.1) mmol/L Chloride (98-107) mmol/L Carbon Dioxide (22-30) mmol/L Anion Gap mmol/L BUN (7-17) mg/dL Creatinine (0.52-1.04) mg/dL Est GFR (CKD-EPI)AfAm (>60 ml/min/1.73 sqM) Est GFR (CKD-EPI)NonAf (>60 ml/min/1.73 sqM) Glucose (74-99) mg/dL Calcium (8.4-10.2) mg/dL Total Bilirubin (0.2-1.3) mg/dL AST (14-36) U/L ALT (4-34) U/L Alkaline Phosphatase (38-126) U/L Total Protein (6.3-8.2) g/dL Albumin (3.5-5.0) g/dL HCG, Quant mIU/mL Urine Color Urine Appearance (Clear) Urine pH (5.0-8.0) Ur Specific [place] (1.001-1.035) Urine Protein (Negative) Urine Glucose (UA) (Negative) Urine Ketones (Negative) Urine Blood (Negative) Urine Nitrite (Negative) Urine Bilirubin (Negative) Urine Urobilinogen (<2.0) mg/dL Ur Leukocyte Esterase (Negative) Urine RBC (0-5) /hpf Urine WBC (0-5) /hpf Ur Squamous Epith Cells (0-4) /hpf Urine Bacteria (None) /hpf Urine Mucus (None) /hpf Blood Type A Positive Blood Type Recheck A Pos Bld Type Recheck Status No Disposition Clinical Impression: First trimester bleeding Disposition: HOME SELF-CARE Condition: Stable Instructions (If sedation given, give patient instructions): Non-Threatening First Trimester Vaginal Bleed (ED) Additional Instructions: Continue taking your antibiotic as prescribed. Increase fluids. Rest as able. You were provided with a note for work. Follow-up with your CONDITIONING ROOM WORKER as scheduled. Return to the emergency department with any new, worsening, or concerning symptoms. Is patient prescribed a controlled substance at d/c from ED?: No Referrals: None,Stated [Primary Care Provider] - 1-2 days Riky Arroyo MD [STAFF PHYSICIAN] - 1-2 days Time of Disposition: 23:28
[2021-12-16 22:53] LABS: Appearance,Urine Cloudy (Clear); Bacteria,Urine Rare /hpf; Bilirubin,Urine Negative (Negative); Blood,Urine Negative (Negative); Color,Urine Yellow; Glucose,Urine (UA) Negative (Negative); Ketones,Urine Trace (Negative); Leukocyte Esterase,Urine Large (Negative); Mucus,Urine Moderate /hpf; Nitrite,Urine Negative (Negative); Protein,Urine Trace (Negative); RBC,Urine 4 /hpf (0-5); Specific Gravity,Urine 1.034 (1.001-1.035); Squamous Epithelial Cell,Urine 15 /hpf (0-4); WBC,Urine 47 /hpf (0-5)
[2021-12-16 22:53] LABS: Basophils % (A) 0 %; Eosinophils # (A) 0.1 k/uL (0-0.7); Eosinophils % (A) 1 %; HCT 34.8 % (34.0-46.0); HGB 12.5 gm/dL (11.4-16.0); Lymphocytes # (A) 1.7 k/uL (1.0-4.8); Lymphocytes % (A) 19 %; MCH 32.1 pg (25.0-35.0); MCHC 35.8 g/dL (31.0-37.0); MCV 89.5 fL (80.0-100.0); Mean Platelet Volume 8.2; Monocytes # (A) 0.3 k/uL (0-1.0); Monocytes % (A) 4 %; Neutrophils # (A) 6.6 k/uL (1.3-7.7); Neutrophils % (A) 75 %; Platelet Count 231 k/uL (150-450); RBC 3.88 m/uL (3.80-5.40); RDW 12.9 % (11.5-15.5); WBC 8.8 k/uL (3.8-10.6)
[2021-12-16 23:15] LABS: ALT 12 U/L (4-34); AST 14 U/L (14-36); African American GFR (CKD) >90 (>60 ml/min/1.73 sqM); Albumin 3.8 g/dL (3.5-5.0); Alkaline Phosphatase 45 U/L (38-126); Anion Gap 6 mmol/L; Blood Urea Nitrogen 11 mg/dL (7-17); Calcium 8.9 mg/dL (8.4-10.2); Carbon Dioxide 27 mmol/L (22-30); Chloride 103 mmol/L (98-107); Glucose 120 mg/dL (74-99); Non-African American GFR(CKD) >90 (>60 ml/min/1.73 sqM); Potassium 3.7 mmol/L (3.5-5.1); Sodium 136 mmol/L (137-145); Total Bilirubin 0.2 mg/dL (0.2-1.3); Total Protein 6.5 g/dL (6.3-8.2)
[2021-12-17 00:02] LABS: HCG,Quantitative Serum 72844.3 mIU/mL
== END 2021-12-16 23:54 | disposition home or self-care (01) ==
LOC: EC 15:20
DX: O26.851 Spotting complicating pregnancy, first trimester (principal); F41.9 Anxiety disorder, unspecified; F31.9 Bipolar disorder, unspecified; Z91.040 Latex allergy status; Z91.018 Allergy to other foods; Z88.8 Allergy status to other drugs, medicaments and biological substances; Z79.899 Other long term (current) drug therapy; Z3A.12 12 weeks gestation of pregnancy
CPT/HCPCS: 36415; 80053; 81001; 84702; 85025; 86900; 86901; 87086; 99284

== ENCOUNTER 2022-01-19 19:37 | Outpatient (CLI) | payer OTHER ==
[2022-01-19] MEDS ORDERED: ACETAMINOPHEN IV (For NPO) 1,000 MG in EMPTY BAG 1 BAG IVPB STA (20:18)
[2022-01-19] MEDS ORDERED: LACTATED RINGERS 1,000 ML IV SCH (20:30)
[2022-01-19 21:13] LABS: Basophils % (A) 0 %; Eosinophils # (A) 0.1 k/uL (0-0.7); Eosinophils % (A) 1 %; HGB 13.4 gm/dL (11.4-16.0); Lymphocytes # (A) 1.2 k/uL (1.0-4.8); Lymphocytes % (A) 14 %; MCH 30.8 pg (25.0-35.0); MCHC 33.5 g/dL (31.0-37.0); Mean Platelet Volume 8.9; Monocytes # (A) 0.4 k/uL (0-1.0); Monocytes % (A) 4 %; Neutrophils # (A) 6.8 k/uL (1.3-7.7); Neutrophils % (A) 79 %; Platelet Count 224 k/uL (150-450); RBC 4.35 m/uL (3.80-5.40); RDW 13.3 % (11.5-15.5); WBC 8.6 k/uL (3.8-10.6)
[2022-01-19 21:26] LABS: Appearance,Urine Cloudy (Clear); Bilirubin,Urine Negative (Negative); Blood,Urine Negative (Negative); Color,Urine Light Yellow; Glucose,Urine (UA) Negative (Negative); Ketones,Urine Negative (Negative); Leukocyte Esterase,Urine Trace (Negative); Mucus,Urine Rare /hpf; Nitrite,Urine Negative (Negative); PH, Urine 6.5 (5.0-8.0); Protein,Urine Negative (Negative); RBC,Urine 1 /hpf (0-5); Specific Gravity,Urine 1.014 (1.001-1.035); Squamous Epithelial Cell,Urine 9 /hpf (0-4); Urobilinogen,Urine <2.0 mg/dL (<2.0); WBC,Urine 4 /hpf (0-5)
--- NOTE | 2022-01-19 22:09 | US ---
EXAMINATION TYPE: US OB limited DATE OF EXAM: 01/19/2022 COMPARISON: NONE CLINICAL HISTORY: pain cramping possible leaking fluid hx 20 wk iufd. pain and cramping that started today. Hx of miscarriage at 20 weeks. EXAM PERFORMED: Transabdominal (TA) GESTATIONAL AGE / DATING Physician Established: (17 weeks/2 days) EDC: 06/27/22 Dates by Current Scan: (17 weeks/1 days) EDC: 06/28/22 SURVEY PLACENTA: Fundal PREVIA: No Previa Ultrasound evidence of abruption? No JYOTHI: 13.0 cm Normal Ultrasound evidence of premature rupture of membranes? No CERVICAL LENGTH (transabdominal: norm > 3.0cm): 3.8 cm Ultrasound evidence of cervical incompetence? No (Tech?if abnormal transabdominally?image transvaginally to substantiate abnormality.) PRESENTATION: Variable LIE: Transverse with head maternal L HEART RATE: 147 bpm RHYTHM: Normal IMPRESSION: No evidence of placenta previa or placental abruption. Normal amniotic fluid. There is po sterior placenta which is 3 cm from the internal cervical os.
[2022-01-19 22:48] VITALS: BP 123/72; PULSE 83; RESP 17; TEMP 97.5
--- NOTE | 2022-01-25 19:50 | P.MSEPDOC ---
Presenting Problems - Arrival Data Date of Arrival on Unit: 01/19/22 Time of Arrival on Unit: 19:37 Mode of Transport: Wheelchair - Complaint OB-Reason for Admission/Chief Complaint: Pain Comment: PT PRESENTS TO TRIAGE PER WHEELCHAIR AFTER. GOING TO ED FOR ABD PAIN AND CRAMPING AND LEAKING OF. " SOME SORT OF FLUID OR BLEEDING". PT STATES IS. 17WEEKS. WHEN DISCUSSING WITH PT HOW ED USUALLY SEES. <20 WEEKS PT STARTED CRYING. STATES HAD A 20 WEEK. STILLBORN BABY JAN 22 2021 HERE. BECAUSE OF HISTORY. DECISION MADE TO SEE PT IN [facility]BP TRIAGE. Medical History - Information : 4 Para: 2 Term: 1 : 1 Abortions: Spontaneous or Elective: 1 Number of Living Children: 1 - Gestational Age Gestational Age by SHAMIKA (wks/days): 17 Weeks and 2 Days Review of Systems - Review of Systems Constitutional: No problems Breast: No problems ENT: No problems Cardiovascular: No problems Respiratory: No problems Gastrointestinal: No problems Genitourinary: No problems Musculoskeletal: No problems Neurological: No problems Skin: No problems Vital Signs - Temperature Temperature: 97.5 F Temperature Source: Temporal Artery Scan - Pulse Pulse Oximetery Pulse Rate: 83 - Respirations Respiratory Rate: 17 Oxygen Delivery Method: Room Air - Blood Pressure Right Arm Blood Pressure: 123/72 Blood Pressure Mean: 89 Blood Pressure Source: Automatic Cuff Physician Notification - Physician Notified Physician Notified Date: 01/19/22 Physician Notified Time: 20:10 Physician: Avani Covarrubias S - Notification Comment Comment: DR COVARRUBIAS UPDATED WITH PTS REASON FOR VISIT. HISTORY 20 IUFD. ORDERS RECEIVED. FOR US, IV, LABS, OFIRMEV. CALL WITH RESULTS. Maternal Triage Index - Maternal Triage Index Presenting for scheduled procedure w/no complaint: No - Stat/Priority 1 Stat Priority 1: No - Urgent/Priority 2 Urgent Priority 2: No - Prompt/Priority 3 Prompt Priority 3: No - Non-Urgent/Priority 4 Non-Urgent Priority 4: Yes Criteria Met for Priority 4: PT PRESENTS TO TRIAGE PER WHEELCHAIR AFTER. GOING TO ED FOR ABD PAIN AND CRAMPING AND LEAKING OF. " SOME SORT OF FLUID OR BLEEDING". PT STATES IS. 17WEEKS. WHEN DISCUSSING WITH PT HOW ED USUALLY SEES. <20 WEEKS PT STARTED CRYING. STATES HAD A 20 WEEK. STILLBORN BABY JAN 22 2021 HERE. BECAUSE OF HISTORY. DECISION MADE TO SEE PT IN FBP TRIAGE. Disposition - Disposition OB Disposition: Discharge to home Discharge Date: 01/19/22 Discharge Time: 22:43 I agree with the RN Medical Screening Exam: No Physician's MSE Comment: Incomplete documentation, plan of care all results not reviewed and charting Case reviewed; plan agreed upon as documented in EMR&OBIX.: No Diagnosis: DECREASED MOVEMENTS, SECOND TRIMESTER, FETUS 1
== END 2022-01-19 22:43 ==
LOC: FBPOP 19:37
PROVIDERS: ATTEND Obstetrics & Gynecology Obstetrics
DX: O36.8121 Decreased fetal movements, second trimester, fetus 1 (principal); Z3A.17 17 weeks gestation of pregnancy; Z91.040 Latex allergy status; Z88.8 Allergy status to other drugs, medicaments and biological substances; Z91.018 Allergy to other foods
CPT/HCPCS: 85025; 81001; 76805; G0463; J0131; 99213

== ENCOUNTER 2022-02-02 21:01 | Emergency (ER) | payer OTHER ==
[2022-02-02] MEDS ORDERED: CLINDAMYCIN 600 MG in DEXTROSE 5% IN WATER 50 ML IVPB STA ×2 (21:34)
[2022-02-02] MEDS ORDERED: SODIUM CHLORIDE 0.9% 1,000 ML IV ONE (21:36)
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
[2022-02-02] MEDS ORDERED: ACETAMINOPHEN TAB 325 MG TAB PO STA (21:57)
[2022-02-02 22:00] LABS: Basophils % (A) 0 %; Eosinophils # (A) 0.1 k/uL (0-0.7); Eosinophils % (A) 1 %; HCT 33.1 % (34.0-46.0); HGB 12.4 gm/dL (11.4-16.0); Lymphocytes # (A) 1.9 k/uL (1.0-4.8); Lymphocytes % (A) 27 %; MCH 33.9 pg (25.0-35.0); MCHC 37.4 g/dL (31.0-37.0); MCV 90.6 fL (80.0-100.0); Mean Platelet Volume 8.7; Monocytes # (A) 0.3 k/uL (0-1.0); Monocytes % (A) 4 %; Neutrophils # (A) 4.6 k/uL (1.3-7.7); Neutrophils % (A) 66 %; Platelet Count 260 k/uL (150-450); RBC 3.66 m/uL (3.80-5.40); RDW 12.9 % (11.5-15.5); WBC 6.9 k/uL (3.8-10.6)
[2022-02-02 22:13] LABS: African American GFR (CKD) >90 (>60 ml/min/1.73 sqM); Anion Gap 5 mmol/L; Blood Urea Nitrogen 14 mg/dL (7-17); Calcium 8.4 mg/dL (8.4-10.2); Carbon Dioxide 27 mmol/L (22-30); Chloride 105 mmol/L (98-107); Glucose 81 mg/dL (74-99); Non-African American GFR(CKD) >90 (>60 ml/min/1.73 sqM); Sodium 137 mmol/L (137-145)
[2022-02-02 22:25] LABS: C Reactive Protein 0.8 mg/dL (<1.0)
[2022-02-02 23:08] VITALS: BP 130/90; PULSE 76; RESP 18; TEMP 98.3
== END 2022-02-02 23:08 | disposition home or self-care (01) ==
LOC: EC 21:01
DX: S02.5XXA Fracture of tooth (traumatic), initial encounter for closed fracture (principal); K02.9 Dental caries, unspecified; F41.9 Anxiety disorder, unspecified; F31.9 Bipolar disorder, unspecified; F90.9 Attention-deficit hyperactivity disorder, unspecified type; Z91.040 Latex allergy status; Z91.018 Allergy to other foods; Z88.8 Allergy status to other drugs, medicaments and biological substances; X58.XXXA Exposure to other specified factors, initial encounter
CPT/HCPCS: 36415; 80048; 85025; 86140; 96365; 99283

== ENCOUNTER 2022-04-05 16:28 | Outpatient (CLI) | payer OTHER ==
[2022-04-05 17:54] LABS: Appearance,Urine Cloudy (Clear); Bacteria,Urine Rare /hpf; Bilirubin,Urine Negative (Negative); Blood,Urine Trace (Negative); Color,Urine Yellow; Glucose,Urine (UA) Negative (Negative); Ketones,Urine Negative (Negative); Leukocyte Esterase,Urine Moderate (Negative); Mucus,Urine Many /hpf; Nitrite,Urine Negative (Negative); PH, Urine 6.5 (5.0-8.0); Protein,Urine 1+ (Negative); RBC,Urine 3 /hpf (0-5); Squamous Epithelial Cell,Urine 26 /hpf (0-4); WBC,Urine 9 /hpf (0-5)
[2022-04-05 18:32] VITALS: PULSE 91; RESP 16; TEMP 98.1
--- NOTE | 2022-05-13 12:02 | P.MSEPDOC ---
Presenting Problems - Arrival Data Date of Arrival on Unit: 04/05/22 Time of Arrival on Unit: 16:28 Mode of Transport: Wheelchair - Complaint OB-Reason for Admission/Chief Complaint: Pain Comment: Patient presents with pelvic pain, urgency and frequency with urination Medical History - Information : 3 Para: 1 Term: 1 : 0 Abortions: Spontaneous or Elective: 1 Number of Living Children: 1 - Gestational Age Gestational Age by SHAMIKA (wks/days): 28 Weeks and 1 Days - History Comment: previous 21 week demise Review of Systems - Review of Systems Constitutional: No problems Breast: No problems ENT: No problems Cardiovascular: No problems Respiratory: No problems Gastrointestinal: No problems Genitourinary: No problems Musculoskeletal: No problems Neurological: No problems Skin: No problems Vital Signs - Temperature Temperature: 98.1 F Temperature Source: Oral - Pulse Pulse Oximetery Pulse Rate: 91 Pulse Assessment Method: Pulse Oximetry - Respirations Respiratory Rate: 16 Oxygen Delivery Method: Room Air O2 Sat by Pulse Oximetry: 100 Medical Screen Scoring - Uterine Contractions Resting: Soft to palpation - Assessment - Baby A Baseline FHR: 140 Heart Rate - NICHD Category: Category I (Normal) NST: Reactive Physician Notification - Physician Notified Physician Notified Date: 04/05/22 Physician Notified Time: 17:24 Physician: Riky Arroyo Order Received: Yes - Notification Comment Comment: Collect and send UA, patient may drink water, and to call physician with report. 181 Orders given to send urine for culture, encourage oral hydration and patient to keep regularly scheduled OB appt. Maternal Triage Index - Non-Urgent/Priority 4 Non-Urgent Priority 4: Yes Criteria Met for Priority 4: 28 02/11, patient presents to triage with urgency, frequency and pelvic pain with urination. Disposition - Disposition OB Disposition: Discharge to home Discharge Date: 04/05/22 Discharge Time: 18:25 I agree with the RN Medical Screening Exam: Yes Physician's MSE Comment: I have neither seen nor examined the patient. Case reviewed; plan agreed upon as documented in EMR&OBIX.: Yes Diagnosis: RELATED CONDITIONS, UNSPECIFIED, THIRD TRIMESTER
== END 2022-04-05 18:25 | disposition home or self-care (01) ==
LOC: FBPOP 16:28
PROVIDERS: ATTEND Obstetrics & Gynecology
DX: O26.893 Other specified pregnancy related conditions, third trimester (principal); Z3A.28 28 weeks gestation of pregnancy; Z91.040 Latex allergy status; Z91.018 Allergy to other foods; Z88.8 Allergy status to other drugs, medicaments and biological substances; R10.2 Pelvic and perineal pain; R35.0 Frequency of micturition
CPT/HCPCS: 59025; 81001; 87086; G0463; 99213

== ENCOUNTER 2022-06-03 18:34 | Outpatient (CLI) | payer OTHER ==
[2022-06-03 21:26] VITALS: BP 120/74; PULSE 96; RESP 16; TEMP 98
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
== END 2022-06-03 21:26 ==
LOC: FBPOP 18:34
PROVIDERS: ATTEND Obstetrics & Gynecology
DX: O26.893 Other specified pregnancy related conditions, third trimester (principal); O60.00 Preterm labor without delivery, unspecified trimester; Z3A.36 36 weeks gestation of pregnancy; Z91.040 Latex allergy status; Z88.8 Allergy status to other drugs, medicaments and biological substances
CPT/HCPCS: 59025; G0463; 99213

== ENCOUNTER 2022-06-04 15:23 | Outpatient (CLI) | payer OTHER ==
[2022-06-04 16:22] VITALS: BP 119/76; PULSE 79; RESP 16; TEMP 98.2
--- NOTE | 2022-06-20 14:05 | P.MSEPDOC ---
Presenting Problems - Arrival Data Date of Arrival on Unit: 06/04/22 Time of Arrival on Unit: 15:23 Mode of Transport: Wheelchair - Complaint OB-Reason for Admission/Chief Complaint: Rule Out PROM Medical History - Information : 3 Para: 1 Term: 1 Abortions: Spontaneous or Elective: 1 Number of Living Children: 1 - Gestational Age Gestational Age by SHAMIKA (wks/days): 36 Weeks and 5 Days Review of Systems - Review of Systems Constitutional: No problems Breast: No problems ENT: No problems Cardiovascular: No problems Respiratory: No problems Gastrointestinal: No problems Genitourinary: No problems Musculoskeletal: No problems Neurological: No problems Skin: No problems Vital Signs - Temperature Temperature: 98.2 F Temperature Source: Temporal Artery Scan - Pulse Right Sitting Brachial Pulse Rate: 79 Pulse Assessment Method: Automatic Cuff - Respirations Respiratory Rate: 16 Oxygen Delivery Method: Room Air O2 Sat by Pulse Oximetry: 98 - Blood Pressure Right Arm Sitting Blood Pressure: 119/76 Blood Pressure Mean: 90 Blood Pressure Source: Automatic Cuff Medical Screen Scoring - Cervical Exam Dilation (cm): 3 Effacement (%): 50 Station: -2 Membranes: Intact - Uterine Contractions Frequency From (mins): 0 Frequency To (mins): 0 Duration From (seconds): 0 Duration To (seconds): 0 Intensity: Absent - Assessment - Baby A Baseline FHR: 135 Heart Rate - NICHD Category: Category I (Normal) NST: Reactive Physician Notification - Physician Notified Physician Notified Date: 06/04/22 Physician Notified Time: 16:00 Physician: Claudia Kaur Order Received: Yes (discharge) Maternal Triage Index - Maternal Triage Index Presenting for scheduled procedure w/no complaint: No - Stat/Priority 1 Stat Priority 1: No - Urgent/Priority 2 Urgent Priority 2: No - Prompt/Priority 3 Prompt Priority 3: No - Non-Urgent/Priority 4 Non-Urgent Priority 4: Yes Criteria Met for Priority 4: c/o leaking fluid Disposition - Disposition OB Disposition: Discharge to home Discharge Date: 06/04/22 Discharge Time: 16:07 I agree with the RN Medical Screening Exam: Yes Physician's MSE Comment: I have neither seen nor examined the patient Case reviewed; plan agreed upon as documented in EMR&OBIX.: Yes Diagnosis: RELATED CONDITIONS, UNSPECIFIED, THIRD TRIMESTER
== END 2022-06-04 16:07 | disposition home or self-care (01) ==
LOC: FBPOP 15:23
PROVIDERS: ATTEND Obstetrics & Gynecology
DX: O26.893 Other specified pregnancy related conditions, third trimester (principal); Z91.040 Latex allergy status; Z88.8 Allergy status to other drugs, medicaments and biological substances; Z91.018 Allergy to other foods
CPT/HCPCS: 59025; 84112; G0463; 99213

== ENCOUNTER 2022-06-06 22:42 | Outpatient (CLI) | payer OTHER ==
[2022-06-07 02:09] VITALS: BP 133/82; PULSE 89; RESP 18; TEMP 97.3
--- NOTE | 2022-07-27 19:01 | P.MSEPDOC ---
Presenting Problems - Arrival Data Date of Arrival on Unit: 06/06/22 Time of Arrival on Unit: 22:42 Mode of Transport: Ambulatory - Complaint OB-Reason for Admission/Chief Complaint: Possible Onset of Labor Comment: presents with contractions Medical History - Information : 3 Para: 2 Term: 1 : 1 Number of Living Children: 1 - Gestational Age Gestational Age by SHAMIKA (wks/days): 37 Weeks and 1 Days Review of Systems - Review of Systems Constitutional: No problems Breast: No problems ENT: No problems Cardiovascular: No problems Respiratory: No problems Gastrointestinal: No problems Genitourinary: No problems Musculoskeletal: No problems Neurological: No problems Skin: No problems Vital Signs - Temperature Temperature: 97.3 F Temperature Source: Oral - Pulse Right Pulse Rate: 89 Pulse Assessment Method: Automatic Cuff - Respirations Respiratory Rate: 18 Oxygen Delivery Method: Room Air - Blood Pressure Right Arm Blood Pressure: 133/82 Blood Pressure Mean: 99 Blood Pressure Source: Automatic Cuff Medical Screen Scoring - Cervical Exam Dilation (cm): 3.5 Effacement (%): 50 - Uterine Contractions Frequency From (mins): 4 Frequency To (mins): 8 Duration From (seconds): 40 Duration To (seconds): 70 Intensity: Mild Resting: Soft to palpation - Assessment - Baby A Baseline FHR: 130 Heart Rate - NICHD Category: Category I (Normal) NST: Reactive Physician Notification - Physician Notified Physician Notified Date: 06/07/22 Physician Notified Time: 01:09 Physician: Dr Palacios New Order Received: Yes - Notification Comment Comment: Dr Palacios updated with pts reason for visit contraction pain and moisture in underware. pt was in office Tues with Ve 3.5 and cervix remains 3.5 /50%/ vertex ballotable. aminsure neg, nst reactive cat 1 FHT. maternal vitals WNL. contractions have decreased to irreg to absent now with pt now stating no longer has contraction pain but rt sided constant groin pain resembling round lig pain. orders for discharge with pt to. call office am for 1 wk appt Maternal Triage Index - Maternal Triage Index Presenting for scheduled procedure w/no complaint: No - Stat/Priority 1 Stat Priority 1: No - Urgent/Priority 2 Urgent Priority 2: No - Prompt/Priority 3 Prompt Priority 3: No - Non-Urgent/Priority 4 Non-Urgent Priority 4: Yes Criteria Met for Priority 4: 37 weeks possible labor Disposition - Disposition OB Disposition: Discharge to home Discharge Date: 06/07/22 Discharge Time: 01:15 I agree with the RN Medical Screening Exam: Yes Case reviewed; plan agreed upon as documented in EMR&OBIX.: Yes Diagnosis: FALSE LABOR AT OR AFTER 37 COMPLETED WEEKS OF GESTATION
== END 2022-06-07 01:15 | disposition home or self-care (01) ==
LOC: FBPOP 22:42
PROVIDERS: ATTEND Obstetrics & Gynecology Obstetrics
DX: O47.1 False labor at or after 37 completed weeks of gestation (principal); Z3A.27 27 weeks gestation of pregnancy; Z91.040 Latex allergy status; Z91.018 Allergy to other foods; Z88.8 Allergy status to other drugs, medicaments and biological substances
CPT/HCPCS: 59025; 84112; G0463; 99213

== ENCOUNTER 2022-06-15 15:19 | Inpatient (IN) | payer OTHER ==
[2022-06-15] MEDS ORDERED: TERBUTALINE 1 MG/ML VIAL SQ PRN (16:16)
[2022-06-15] MEDS ORDERED: CARBOPROST TROMETHAMINE 250 MCG/ML 1 ML AMP IM PRN (16:16)
[2022-06-15] MEDS ORDERED: METHYLERGONOVINE 0.2 MG/ML 1 ML AMP IM PRN (16:16)
[2022-06-15] MEDS ORDERED: TRANEXAMIC ACID IN NACL,ISO-OS 1,000 MG in EMPTY BAG 1 BAG IV PRN (16:16)
[2022-06-15] MEDS ORDERED: miSOPROStoL 200 MCG TAB PO PRN (16:16)
[2022-06-15] MEDS ORDERED: LIDOCAINE 0.5% (PF) 5 MG/ML (50 ML SDV) SQ PRN (16:16)
[2022-06-15] MEDS ORDERED: OXYTOCIN 10 UNIT/ML 1 ML VIAL IM PRN (16:16)
[2022-06-15] MEDS: LACTATED RINGERS 1,000 ML IV SCH ×3 (16:22→18:35)
[2022-06-15] MEDS ORDERED: OXYTOCIN 30 UNITS/500 ML NS 30 UNIT in SALINE 1 500ML.BAG IV SCH (16:30)
[2022-06-15 16:46] LABS: Basophils % (A) 0 %; Eosinophils # (A) 0.1 k/uL (0-0.7); Eosinophils % (A) 1 %; HCT 33.4 % (34.0-46.0); HGB 11.2 gm/dL (11.4-16.0); Lymphocytes # (A) 1.9 k/uL (1.0-4.8); Lymphocytes % (A) 22 %; MCH 28.5 pg (25.0-35.0); MCHC 33.5 g/dL (31.0-37.0); MCV 85.3 fL (80.0-100.0); Mean Platelet Volume 9.3; Monocytes # (A) 0.3 k/uL (0-1.0); Monocytes % (A) 4 %; Neutrophils # (A) 5.9 k/uL (1.3-7.7); Neutrophils % (A) 70 %; Platelet Count 236 k/uL (150-450); RBC 3.92 m/uL (3.80-5.40); RDW 13.1 % (11.5-15.5); WBC 8.4 k/uL (3.8-10.6)
[2022-06-15] MEDS ORDERED: fentaNYL (PF) 50 MCG/ML 5 ML AMP ONE (16:51)
[2022-06-15] MEDS ORDERED: SODIUM CHLORIDE 0.9% 100 ML BAG ONE (16:51)
[2022-06-15] MEDS ORDERED: ROPIVACAINE 5 MG/ML 20 ML AMPULE ONE (16:51)
--- NOTE | 2022-06-15 17:17 | P.HPOB ---
History of Present Illness H&P Date: 06/15/22 Chief Complaint: 38-2/7 weeks, active labor the patient is a 26-year-old 3 para 1011 who presents at 38-2/7 weeks as established by seven-week ultrasound. She presented in active labor having made cervical change in triage. All signs reassuring with a category 1 heart rate tracing. Her has been complicated by chlamydia diagnosed at the obstetrical visit which was treated with Zithromax and then tested for cure in the midtrimester. She does carry a history of a previous 20 week demise which was thought to be due to infectious causes. She otherwise has 1 term vaginal delivery. Group B strep status is negative. Obstetrical history: 3 para 1011 with 1 term vaginal delivery without complications in 1 roughly 20 week demise. EDC of 07/03/2022 was established by seven-week ultrasound. Laboratory workup done Schutze blood type of A+ with a positive antibody screen for anti-M with a titer too weak to calculate. Rubella status is immune. The remainder of the laboratory workup was within normal limits. As noted above chlamydia was positive at the initial visit and was treated and cured. Cystic fibrosis testing was negative as was a fraction testing for trisomy. One hour Glucola was normal and group B st rep status is negative. Gynecologic history: Unremarkable with the only history of STDs as noted in history of present illness found at the beginning of , tested for after treatment and cured. Review of Systems review of systems is confined to history of present illness. Past Medical History Past Medical History: No Reported History Additional Past Medical History / Comment(s): pancreatis, vertigo History of Any Multi-Drug Resistant Organisms: None Reported Past Surgical History: No Surgical Hx Reported Past Anesthesia/Blood Transfusion Reactions: No Reported Reaction Smoking Status: Never smoker - Past Family History Mother Family Medical History: Unable to Obtain Medications and Allergies Home Medications Medication Instructions Recorded Confirmed Type Vit No.179/Iron/Folic 1 each PO DAILY 30 Days #30 tab 10/21/21 06/15/22 Rx [ Tablet] Allergies Allergy/AdvReac Type Severity Reaction Status Date / Time latex Allergy Rash/Hives Verified 06/15/22 15:35 amparo Allergy Anaphylaxis Verified 06/15/22 15:35 diphenhydramine AdvReac Nausea & Verified 06/15/22 15:35 [From Benadryl] Vomiting Exam Vital Signs Temp Pulse Resp BP Pulse Ox 06/15/22 15:34 97.9 F 85 18 115/69 99 Intake and Output 06/15/22 06/15/22 06/15/22 06:59 14:59 22:59 Other: Weight 64.41 kg in general, this is a well-developed, well-nourished white female in no acute distress. Her heart has a regular rhythm and rate without murmur. Her lungs clear to auscultation bilaterally in all dodson. Her abdomen is gravid, nondistended, has normal active bowel sounds, soft, nontender, and without any palpable masses aside from uterine fundus. Her extremities are without any cyanosis, clubbing, or edema and are nontender to palpation bilaterally. Digital cervical examination performed by the nursing staff demonstrates her cervix to be 5 cm dilated, 80% effaced, with the vertex in presentation at -1-2 station. Results Result Diagrams: 06/15/22 16:23 Abnormal Lab Results - Last 24 Hours (Table) 06/15/22 Range/Units 16:23 Hgb 11.2 L (11.4-16.0) gm/dL Hct 33.4 L (34.0-46.0) % Assessment and Plan (1) Active labor at term Current Visit: Yes Status: Acute Code(s): UFD2328 - SNOMED Code(s): 89892612 Plan: the patient has been admitted for active management of labor. She is requesting an epidural catheter be placed which is being done currently. She will have artificial rupture of membranes carried out and expectant management will be practiced. She will continue to have close maternal and surveillance.
[2022-06-15] MEDS ORDERED: BENZOCAINE/MENTHOL SPRAY 1 GM/SPRAY AEROSOL TOPICAL PRN (22:36)
[2022-06-15] MEDS ORDERED: LANOLIN CREAM 5 GM TUBE TOPICAL PRN (22:36)
[2022-06-15] MEDS ORDERED: ZOLPIDEM 5 MG TAB PO PRN (22:36)
[2022-06-15] MEDS ORDERED: ACETAMINOPHEN TAB 325 MG TAB PO PRN (22:36)
[2022-06-15] MEDS ORDERED: SIMETHICONE 80 MG CHEWABLE PO PRN (22:36)
[2022-06-15] MEDS ORDERED: HYDROCORTISONE 2.5% RECTAL CREAM 30 GM TUBE RECTAL PRN (22:36)
--- NOTE | 2022-06-15 22:36 | P.PROBDLV ---
Vaginal Delivery Note - . Vaginal Delivery Note: Findings: Female in the vertex presentation direct occiput anterior position with Apgars of 8 at 1 minute and 9 at 5 minutes weighing 6 lbs. 5 oz., 2880 g. Intact, three-vessel cord placenta. EBL approximately 200 mL's. Delivery summary: This is a 26-year-old 3 para 02/06/1998 woman who presented at 38-2/7 weeks' gestation in spontaneous active labor. Following admission she received an epidural anesthetic. She required Pitocin augmentation. She underwent artificial rupture of membranes and clear amniotic fluid was noted. She did reach complete cervical dilation after approximately 8 hour first stage of labor. She commenced pushing with excellent maternal effort. With she was repositioned, prepped and draped in the dorsal modified Goldie position. With additional maternal effort the head did deliver from the direct occiput anterior position followed rapidly by the rest of the onto the field. The nose and mouth were bulb suctioned. The was placed on maternal abdomen and after an appropriate period of time the cord was clamped and cut. Apgars were 8 at 1 minute and 9 at 5 minutes and weight was 6 lbs. 5 oz. After approximate 4 minute third stage an intact, three-vessel cord placenta was expressed. The perineum vagina and cervix were inspected and no lacerations were noted. The uterus was massaged and was noted to be firm below the level of the umbilicus. The patient received Pitocin following delivery of the placenta. Both mother and were doing well post delivery in the room and all counts were correct.
[2022-06-16] MEDS: IBUPROFEN 600 MG TAB PO PRN ×2 (00:39→15:02)
[2022-06-16 07:55] LABS: Basophils % (A) 0 %; Eosinophils # (A) 0.1 k/uL (0-0.7); Eosinophils % (A) 1 %; HCT 31.6 % (34.0-46.0); Lymphocytes # (A) 1.9 k/uL (1.0-4.8); Lymphocytes % (A) 22 %; MCH 27.1 pg (25.0-35.0); MCHC 31.6 g/dL (31.0-37.0); MCV 85.8 fL (80.0-100.0); Mean Platelet Volume 10.4; Monocytes # (A) 0.3 k/uL (0-1.0); Monocytes % (A) 4 %; Neutrophils # (A) 6.1 k/uL (1.3-7.7); Neutrophils % (A) 71 %; Platelet Count 178 k/uL (150-450); RBC 3.69 m/uL (3.80-5.40); RDW 13.3 % (11.5-15.5); WBC 8.6 k/uL (3.8-10.6)
[2022-06-16] MEDS: SENNOSIDES-DOCUSATE SODIUM 1 EACH TAB PO SCH ×2 (08:33→15:02)
[2022-06-16 08:36] VITALS: RESP 16
--- NOTE | 2022-06-16 08:53 | P.DS ---
Providers Date of admission: 06/15/22 16:17 Expected date of discharge: 06/16/22 Attending physician: Riky Arroyo Primary care physician: Stated None - Discharge Diagnosis(es) (1) Active labor at term Current Visit: Yes Status: Acute (2) Vaginal delivery Current Visit: Yes Status: Acute Hospital Course: Patient is a 26-year-old 3 para 1011 admitted at 38-2/7 weeks by good dating parameters perches admitted in active labor with all signs reassuring. Her was essentially uncomplicated though she had early chlamydia treated and cured. On labor and delivery, she had an epidural catheter placed for analgesia and then underwent artificial rupture of membranes for clear fluid. She had Pitocin augmentation started and progressed ultimately to complete. She then pushed to a normal spontaneous vaginal delivery of a viable 6 lbs. 5 oz. baby girl with Apgars of 8 at 1 minute and 9 at 5 minutes. Her course was unremarkable with vital signs remaining stable and her temperature was afebrile throughout. She was deemed stable for discharge on day 1 and was discharged home to follow-up in the office routinely in 6 weeks' time. Discharge instructions included calling for any significantly increased bleeding or foul-smelling lochia, significantly increased fever or abdominal pain, perineal complaints, breast complaints, or anything else that concerned her. She was additionally instructed to have nothing in the vagina for at least 6 weeks time to include intercourse. She understood her instructions and agrees to follow up as noted above. Discharge medications included only [id number] analgesic pain medications. Maternal blood type is A+ and rubella status is immune. Procedures: #1. Epidural analgesia #2. Artificial rupture membranes #3. Normal spontaneous vaginal delivery Patient Condition at Discharge: Stable Plan - Discharge Summary New Discharge Prescriptions: No Action Vit No.179/Iron/Folic [ Tablet] 1 each PO DAILY 30 Days #30 tab Discharge Medication List Vit No.179/Iron/Folic [ Tablet] 1 each PO DAILY 30 Days #30 tab 10/21/21 [Rx] Follow up Appointment(s)/Referral(s): Riky Arroyo MD [STAFF PHYSICIAN] - 6 Weeks Discharge Disposition: HOME SELF-CARE
[2022-06-16 23:20] VITALS: BP 120/78; PULSE 62; TEMP 97.7
== END 2022-06-16 22:45 | disposition home or self-care (01) | DRG 560 ==
LOC: FBPOP 15:19 → 4FBP 16:17
PROVIDERS: ADMIT Obstetrics & Gynecology; ATTEND Obstetrics & Gynecology
PROC: 10907ZC Drainage of Amniotic Fluid, Therapeutic from Products of Conception, Via Natural or Artificial Opening (ICD-10-PCS; principal; 2022-06-15)
PROC: 10E0XZZ Delivery of Products of Conception, External Approach (ICD-10-PCS; principal; 2022-06-15)
DX: O80 Encounter for full-term uncomplicated delivery (principal); Z37.0 Single live birth; Z3A.38 38 weeks gestation of pregnancy; Z28.310 Unvaccinated for COVID-19; Z91.040 Latex allergy status; Z88.8 Allergy status to other drugs, medicaments and biological substances; Z91.018 Allergy to other foods
CPT/HCPCS: 59025; 85025; 86850; 86870; 86880; 86900; 86901; 99213

== ENCOUNTER 2022-08-20 11:01 | Emergency (ER) | payer OTHER ==
[2022-08-20 11:07] VITALS: TEMP 99.1
[2022-08-20 11:26] VITALS: RESP 16
[2022-08-20] MEDS ORDERED: KETOROLAC 15 MG/ML 1 ML VIAL IVP STA (11:35)
[2022-08-20] MEDS ORDERED: SODIUM CHLORIDE 0.9% 1,000 ML IV STA (11:35)
--- NOTE | 2022-08-20 12:01 | ED ---
ENT HPI - General Chief complaint: ENT Stated complaint: ENT,Swollen Throat Time Seen by Provider: 08/20/22 11:10 Source: patient Mode of arrival: ambulatory Limitations: no limitations - History of Present Illness Initial comments: A 7-year-old female with no significant past medical history presented to the ED with chief complaint of URI symptoms. Patient is 3 days ago, started to experience sore throat. States that this is gradually worsening in severity. States that she is still able to tolerate with intake. Associated headache, bilateral ear pain, and nonproductive cough. She has been using throat spray and lozenges with minimal relief however has not been taking any other medications due to her not having any. Denies fever. No other symptoms - Related Data Previous Rx's Medication Instructions Recorded Vit No.179/Iron/Folic 1 each PO DAILY 30 Days #30 tab 10/21/21 [ Tablet] Fluticasone Propionate [Flonase 1 spray EA NOSTRIL ONCE #9.9 ml 08/20/22 Allergy Relief] Ibuprofen 400 mg PO Q4-6H PRN #30 tablet 08/20/22 guaiFENesin-DM 600/30MG [Mucinex 1 tab PO Q12HR PRN 7 Days #14 tab 08/20/22 Dm] Allergies Allergy/AdvReac Type Severity Reaction Status Date / Time latex Allergy Rash/Hives Verified 08/20/22 11:07 amparo Allergy Anaphylaxis Verified 08/20/22 11:07 diphenhydramine AdvReac Nausea & Verified 08/20/22 11:07 [From Benadryl] Vomiting Review of Systems ROS Statement: Those systems with pertinent positive or pertinent negative responses have been documented in the HPI. ROS Other: All systems not noted in ROS Statement are negative. Past Medical History Past Medical History: No Reported History Additional Past Medical History / Comment(s): pancreatis, vertigo History of Any Multi-Drug Resistant Organisms: None Reported Past Surgical History: No Surgical Hx Reported Past Anesthesia/Blood Transfusion Reactions: No Reported Reaction Past Psychological History: ADD/ADHD, Anxiety, Bipolar, Depression Smoking Status: Never smoker - Past Family History Mother Family Medical History: Unable to Obtain Additional Family Medical History / Comment(s): adopted General Exam Limitations: no limitations General appearance: alert, in no apparent distress Head exam: Present: other (Right frontal sinus tenderness to palpation) ENT exam: Present: TM's normal bilaterally, other (Tonsils show minimal enlargement without exudate.) Neck exam: Present: lymphadenopathy (Anterior cervical lymphadenopathy.) Respiratory exam: Present: normal lung sounds bilaterally Cardiovascular Exam: Present: regular rate, normal rhythm GI/Abdominal exam: Present: soft (No Tenderness to palpation. No rebound guarding or rigidity.) Neurological exam: Present: alert, oriented X3 Skin exam: Present: warm, dry Course Vital Signs 08/20/22 08/20/22 11:05 11:07 Temperature 99.1 F Pulse Rate 85 70 Respiratory 20 16 Rate Blood Pressure 122/72 120/60 O2 Sat by Pulse 100 98 Oximetry Medical Decision Making - Medical Decision Making Was pt. sent in by a medical professional or institution (, PA, EXPLOSIVES HANDLER, urgent care, hospital, or shelter...) When possible be specific @ -No Did you speak to anyone other than the patient for history (EMS, parent, family, police, friend...)? What history was obtained from this source @ -No Did you review nursing and triage notes (agree or disagree)? Why? @ -I reviewed and agree with nursing and triage notes Were old charts reviewed (outside hosp., previous admission, EMS record, old EKG, old radiological studies, urgent care reports/EKG's, shelter records)? Report findings @ -No old charts were reviewed Differential Diagnosis (chest pain, altered mental status, abdominal pain women, abdominal pain men, vaginal bleeding, weakness, fever, dyspnea, syncope, headache, dizziness, GI bleed, back pain, seizure, CVA, palpatations, mental health, musculoskeletal)? @ -Pneumonia, streptococcal pharyngitis, viral syndrome. This is not meant to be an all-inclusive list. EKG interpreted by me (3pts min.). @ -None X-rays interpreted by me (1pt min.). @ -None done CT interpreted by me (1pt min.). @ -None done U/S interpreted by me (1pt. min.). @ -None done What testing was considered but not performed or refused? (CT, X-rays, U/S, labs)? Why? @ -None What meds were considered but not given or refused? Why? @ -None Did you discuss the management of the patient with other professionals (professionals i.e. , PA, EXPLOSIVES HANDLER, lab, RT, psych nurse, executive secretary social welfare, car whacker, teacher, correctional officer, caser up)? Give summary @ -No Was smoking cessation discussed for >3mins.? @ -No Was critical care preformed (if so, how long)? @ -No Were there social determinants of health that impacted care today? How? (Homelessness, low income, unemployed, alcoholism, drug addiction, transportation, low edu. Level, literacy, decrease access to med. care, prison, rehab)? @ -No Was there de-escalation of care discussed even if they declined (Discuss DNR or withdrawal of care, Hospice)? DNR status @ -No What co-morbidities impacted this encounter? (DM, HTN, Smoking, COPD, CAD, Cancer, CVA, ARF, Chemo, Hep., AIDS, mental health diagnosis, sleep apnea, morbid obesity)? @ -None Was patient admitted / discharged? Hospital course, mention meds given and route, prescriptions, significant lab abnormalities, going to OR and other pertinent info. @ -Discharge. Patient had improvement of symptoms with IV fluids and Toradol. Vital signs stable, afebrile. No findings on exam suggestive of bacterial infection. Symptoms likely viral in nature. States stable condition with prescriptions for Mucinex and ibuprofen. Advised follow-up with PCP if symptoms ongoing. Discussed return precautions with patient who verbalizes agreement. Undiagnosed new problem with uncertain prognosis? @ -No Drug Therapy requiring intensive monitoring for toxicity (Heparin, Nitro, Insulin, Cardizem)? @ -No Were any procedures done? @ -No Diagnosis/symptom? @ -Viral sinusitis Acute, or Chronic, or Acute on Chronic? @ -Acute Uncomplicated (without systemic symptoms) or Complicated (systemic symptoms)? @ -Uncomplicated Side effects of treatment? @ -No Exacerbation, Progression, or Severe Exacerbation? @ -No Poses a threat to life or bodily function? How? (Chest pain, [place], [place], pneumonia, PE, COPD, DKA, ARF, appy, cholecystitis, CVA, Diverticulitis, Homicidal, Suicidal, threat to staff... and all critical care pts) @ -No - Lab Data Lab Results 08/20/22 08/20/22 Range/Units 11:10 11:10 Influenza Type A (PCR) Not Detected (Not Detectd) Influenza Type B (PCR) Not Detected (Not Detectd) RSV (PCR) Not Detected (Not Detectd) SARS-CoV-2 (PCR) Not Detected (Not Detectd) Group A Strep (PCR) NOT DETECTED (Not Detectd) Disposition Clinical Impression: Viral sinusitis Disposition: HOME SELF-CARE Condition: Good Instructions (If sedation given, give patient instructions): Sinusitis (ED) Additional Instructions: Please return to the Emergency Department if symptoms worsen or any other concerns. Prescriptions: Fluticasone Propionate [Flonase Allergy Relief] 1 spray EA NOSTRIL ONCE #9.9 ml Ibuprofen 400 mg PO Q4-6H PRN #30 tablet PRN Reason: Pain guaiFENesin-DM 600/30MG [Mucinex Dm] 1 tab PO Q12HR PRN 7 Days #14 tab PRN Reason: Cough Is patient prescribed a controlled substance at d/c from ED?: No Referrals: None,Stated [Primary Care Provider] - 1-2 days Time of Disposition: 12:24
[2022-08-20 12:52] VITALS: BP 110/60; PULSE 68
== END 2022-08-20 12:52 | disposition home or self-care (01) ==
LOC: EC 11:01
DX: J32.9 Chronic sinusitis, unspecified (principal); Z86.59 Personal history of other mental and behavioral disorders; Z91.040 Latex allergy status; Z88.8 Allergy status to other drugs, medicaments and biological substances; Z91.018 Allergy to other foods; Z20.822 Contact with and (suspected) exposure to COVID-19
CPT/HCPCS: 87651; 87636; 99283; 96374; 96361; J1885

== ENCOUNTER 2022-09-10 23:55 | Emergency (ER) | payer OTHER ==
[2022-09-11 00:02] VITALS: BP 116/74; PULSE 86; RESP 16; TEMP 98.2
--- NOTE | 2022-09-11 00:12 | ED ---
General Adult HPI - General Chief complaint: Extremity Injury, Lower Stated complaint: Fall, Right Leg Injury Time Seen by Provider: 09/10/22 23:58 Source: patient, RN notes reviewed Mode of arrival: ambulatory Limitations: no limitations - History of Present Illness Initial comments: Patient is a 27-year-old female who presents emergency Department after being instructed to follow-up after falling at work. 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 Did not hit her head. No loss conscious. No blood thinners. Has been and auditory since. He was instructed to come here for her work release and incident report. She is normal range of motion of the knee. No significant pain. Small bruise present. No other injuries. Denies any numbness or weakness of the right lower extremity. Denies any other injuries. Presents for further evaluation at this time. Injury occurred shortly prior to arrival. - Related Data Previous Rx's Medication Instructions Recorded Vit No.179/Iron/Folic 1 each PO DAILY 30 Days #30 tab 10/21/21 [ Tablet] Fluticasone Propionate [Flonase 1 spray EA NOSTRIL ONCE #9.9 ml 08/20/22 Allergy Relief] Ibuprofen 400 mg PO Q4-6H PRN #30 tablet 08/20/22 guaiFENesin-DM 600/30MG [Mucinex 1 tab PO Q12HR PRN 7 Days #14 tab 08/20/22 Dm] Allergies Allergy/AdvReac Type Severity Reaction Status Date / Time latex Allergy Rash/Hives Verified 08/20/22 11:07 amparo Allergy Anaphylaxis Verified 08/20/22 11:07 diphenhydramine AdvReac Nausea & Verified 08/20/22 11:07 [From Benadryl] Vomiting Review of Systems ROS Statement: Those systems with pertinent positive or pertinent negative responses have been documented in the HPI. Review of Systems: CONST: Denies fever EYES: Denies blurry vision ENT: Denies nasal congestion C/V: Denies Chest pain RESP: Denies shortness of breath GI: Denies abdominal pain : Denies dysuria SKIN: Denies rash. MSK: Endorses mild right knee pain NEURO: Denies headache ROS Other: All systems not noted in ROS Statement are negative. Past Medical History Past Medical History: No Reported History Additional Past Medical History / Comment(s): pancreatis, vertigo History of Any Multi-Drug Resistant Organisms: None Reported Past Surgical History: No Surgical Hx Reported Past Anesthesia/Blood Transfusion Reactions: No Reported Reaction Past Psychological History: ADD/ADHD, Anxiety, Bipolar, Depression Smoking Status: Never smoker - Past Family History Mother Family Medical History: Unable to Obtain Additional Family Medical History / Comment(s): adopted General Exam - General Exam Comments Initial Comments: General: Appears in no acute distress. HEAD: Normal with no signs of head trauma. EYES: EOMI. ENT: Hearing grossly intact. RESPIRATORY: No respiratory distress. C/V: Regular rate and rhythm. ABD: Abdomen is nondistended. EXT: No obvious deformity.. Normal range of motion of the right knee and right leg. Negative Major's test. No valgus or varus deformity. Neurovascular intact throughout the right lower extremity. Able to hold knee in full extension without issue. Ambulates without issue. SKIN: No rashes or lesions observed on exposed skin. Small red delta, possible developing bruising to the anterior right knee. NEURO: Alert and oriented. Limitations: no limitations Course Vital Signs 09/10/22 23:56 Temperature 98.2 F Pulse Rate 86 Respiratory 16 Rate Blood Pressure 116/74 O2 Sat by Pulse 98 Oximetry Medical Decision Making - Medical Decision Making Was pt. sent in by a medical professional or institution (SHELLY Marquez, MAR[employer] FIREFIGHTER, urgent care, hospital, or alf...) When possible be specific @ -No Did you speak to anyone other than the patient for history (EMS, parent, family, police, friend...)? What history was obtained from this source @ -No Did you review nursing and triage notes (agree or disagree)? Why? @ -I reviewed and agree with nursing and triage notes Were old charts reviewed (outside hosp., previous admission, EMS record, old EKG, old radiological studies, urgent care reports/EKG's, alf records)? Report findings @ -No old charts were reviewed Differential Diagnosis (chest pain, altered mental status, abdominal pain women, abdominal pain men, vaginal bleeding, weakness, fever, dyspnea, syncope, headache, dizziness, GI bleed, back pain, seizure, CVA, palpatations, mental health, musculoskeletal)? @ -Differential Musculoskeletal Muscular strain, contusion, ligament sprain, fracture, arthritis, septic arthritis, bursitis, cellulitis, muscle spasm, nerve compression, DVT, arterial occlusion, herpes zoster, electrolyte abnormality, tumor.... This is not meant to be in all inclusive list EKG interpreted by me (3pts min.). @ -None done X-rays interpreted by me (1pt min.). @ -None done CT interpreted by me (1pt min.). @ -None done U/S interpreted by me (1pt. min.). @ -None done What testing was considered but not performed or refused? (CT, X-rays, U/S, labs)? Why? @ -Considered x-ray imaging of the right knee however patient is no significant symptoms, no deformities, and patient declines. I believe this is reasonable. What meds were considered but not given or refused? Why? @ -I offered analgesic medications which were declined. Did you discuss the management of the patient with other professionals (professionals i.e. , PA, MARINE FIREFIGHTER, lab, RT, psych nurse, social work manager, sewing supervisor, teacher, giving officer, caser in)? Give summary @ -No Was smoking cessation discussed for >3mins.? @ -No Was critical care preformed (if so, how long)? @ -No Were there social determinants of health that impacted care today? How? (Homelessness, low income, unemployed, alcoholism, drug addiction, transportation, low edu. Level, literacy, decrease access to med. care, [facility], rehab)? @ -No Was there de-escalation of care discussed even if they declined (Discuss DNR or withdrawal of care, Hospice)? DNR status @ -No What co-morbidities impacted this encounter? (DM, HTN, Smoking, COPD, CAD, Cancer, CVA, ARF, Chemo, Hep., AIDS, mental health diagnosis, sleep apnea, morbid obesity)? @ -None Was patient admitted / discharged? Hospital course, mention meds given and route, prescriptions, significant lab abnormalities, going to OR and other pertinent info. @ -Based on the patient's presentation and physical exam, patient appears to have a small developing bruise over the right knee with no significant injury after a fall onto her right knee. Presents for work clearance with an incident report. We discussed possible x-ray imaging and both agree the patient is not required at this time but strict return precautions were discussed. I did offer analgesic medications which were declined as well. Vital signs within acceptable limits. She'll be discharged home at this time. Exam is within normal limits. She was in agreement with this plan. I instructed the patient to follow up with their PCP in the next 1-3 days. I explained that the patient should return to the emergency department if they experience any worsening symptoms. Strict return precautions were discussed with the patient. The patient expressed understanding of these instructions. I answered all questions that the patient had. The patient was discharged home in good condition with their prescriptions and follow up information. Undiagnosed new problem with uncertain prognosis? @ -No Drug Therapy requiring intensive monitoring for toxicity (Heparin, Nitro, Insulin, Cardizem)? @ -No Were any procedures done? @ -No Diagnosis/symptom? @ -Fall, Bruise Acute, or Chronic, or Acute on Chronic? @ -Acute Uncomplicated (without systemic symptoms) or Complicated (systemic symptoms)? @ -Uncomplicated Side effects of treatment? @ -No Exacerbation, Progression, or Severe Exacerbation? @ -No Poses a threat to life or bodily function? How? (Chest pain, [place], [place], pneumonia, PE, COPD, DKA, ARF, appy, cholecystitis, CVA, Diverticulitis, Homicidal, Suicidal, threat to staff... and all critical care pts) @ -No Disposition Clinical Impression: Fall, Bruise Disposition: HOME SELF-CARE Condition: Good Instructions (If sedation given, give patient instructions): Fall Prevention (ED) Is patient prescribed a controlled substance at d/c from ED?: No Referrals: None,Stated [Primary Care Provider] - 1-2 days Time of Disposition: 00:10
== END 2022-09-11 00:18 | disposition home or self-care (01) ==
LOC: EC 23:55
DX: S80.01XA Contusion of right knee, initial encounter (principal); E11.9 Type 2 diabetes mellitus without complications; Z86.59 Personal history of other mental and behavioral disorders; Z88.8 Allergy status to other drugs, medicaments and biological substances; Z91.040 Latex allergy status; Z91.018 Allergy to other foods; W01.0XXA Fall on same level from slipping, tripping and stumbling without subsequent striking against object, initial encounter
CPT/HCPCS: 99283

== ENCOUNTER 2022-10-21 07:07 | Emergency (ER) | payer OTHER ==
[2022-10-21] MEDS ORDERED: SODIUM CHLORIDE 0.9% 1,000 ML IV STA (07:39)
[2022-10-21] MEDS ORDERED: KETOROLAC 15 MG/ML 1 ML VIAL IVP STA (07:39)
--- NOTE | 2022-10-21 07:45 | ED ---
Abdominal Pain HPI - General Chief Complaint: Abdominal Pain Stated Complaint: Had baby 4 months ago, clots, abdominal pain Time Seen by Provider: 10/21/22 07:31 Source: patient, RN notes reviewed, old records reviewed Mode of arrival: ambulatory Limitations: no limitations - History of Present Illness Initial Comments: 27-year-old female presents ambulatory with complaints of body aches and chills with abdominal pain for the past 3 days. States that she's had vaginal bleeding since she delivered her baby on June 15. States got Depo shot 6 weeks after delivery and denies any chance of . No known sick contacts. Did take 2 Covid tests at home that were negative. Does not have an OUTBOARD MOTOR ASSEMBLER or primary care doctor. Nonsmoker. History of ADHD, bipolar, depression, anxiety. MD Complaint: abdominal pain -: days(s) (3) Location: diffuse Radiation: none Severity scale (1-10): 10 Quality: sharp Consistency: constant Improves With: nothing Context: other (vaginal delivery 06/15/22) Associated Symptoms: chills, other (vaginal bleeding since delivery) - Related Data Previous Rx's Medication Instructions Recorded Vit No.179/Iron/Folic 1 each PO DAILY 30 Days #30 tab 10/21/21 [ Tablet] Fluticasone Propionate [Flonase 1 spray EA NOSTRIL ONCE #9.9 ml 08/20/22 Allergy Relief] Ibuprofen 400 mg PO Q4-6H PRN #30 tablet 08/20/22 guaiFENesin-DM 600/30MG [Mucinex 1 tab PO Q12HR PRN 7 Days #14 tab 08/20/22 Dm] Allergies Allergy/AdvReac Type Severity Reaction Status Date / Time latex Allergy Rash/Hives Verified 10/21/22 07:16 amparo Allergy Anaphylaxis Verified 10/21/22 07:16 diphenhydramine AdvReac Nausea & Verified 10/21/22 07:16 [From Benadryl] Vomiting Review of Systems ROS Statement: Those systems with pertinent positive or pertinent negative responses have been documented in the HPI. ROS Other: All systems not noted in ROS Statement are negative. Past Medical History Past Medical History: No Reported History Additional Past Medical History / Comment(s): pancreatis, vertigo History of Any Multi-Drug Resistant Organisms: None Reported Past Surgical History: No Surgical Hx Reported Past Anesthesia/Blood Transfusion Reactions: No Reported Reaction Past Psychological History: ADD/ADHD, Anxiety, Bipolar, Depression Smoking Status: Never smoker Past Alcohol Use History: None Reported Past Drug Use History: None Reported - Past Family History Mother Family Medical History: Unable to Obtain Additional Family Medical History / Comment(s): adopted General Exam Limitations: no limitations General appearance: alert, in no apparent distress Head exam: Present: atraumatic, normocephalic, normal inspection Eye exam: Present: normal appearance. Absent: scleral icterus, conjunctival injection, periorbital swelling, periorbital tenderness ENT exam: Present: normal oropharynx, mucous membranes moist Neck exam: Present: full ROM. Absent: tenderness, meningismus Respiratory exam: Present: normal lung sounds bilaterally. Absent: respiratory distress, accessory muscle use Cardiovascular Exam: Present: regular rate, normal rhythm, normal heart sounds GI/Abdominal exam: Present: soft, tenderness (suprapubic). Absent: distended, guarding, rebound, rigid External exam: Present: normal external exam. Absent: erythema, swelling, lesions, lacerations, ecchymosis Speculum exam: Present: vaginal bleeding (minimal bleeding with small clots). Absent: erythema, foreign body, tissue, laceration Extremities exam: Present: full ROM, normal capillary refill. Absent: tenderness, pedal edema Neurological exam: Present: alert, oriented X3 Psychiatric exam: Present: normal affect, normal mood Skin exam: Present: warm, dry, normal color. Absent: cyanosis, diaphoretic, petechiae, pallor Course Vital Signs 10/21/22 10/21/22 07:14 08:05 Temperature 98.9 F 97.5 F L Pulse Rate 83 71 Respiratory 22 18 Rate Blood Pressure 149/89 112/71 O2 Sat by Pulse 100 100 Oximetry Medical Decision Making - Medical Decision Making Was pt. sent in by a medical professional or institution (, PA, DIRECTOR GLOBAL SALES, urgent care, hospital, or intermediate...) When possible be specific @ -No Did you speak to anyone other than the patient for history (EMS, parent, family, police, friend...)? What history was obtained from this source @ -No Did you review nursing and triage notes (agree or disagree)? Why? @ -I reviewed and agree with nursing and triage notes Were old charts reviewed (outside hosp., previous admission, EMS record, old EKG, old radiological studies, urgent care reports/EKG's, intermediate records)? Report findings @ -No old charts were reviewed Differential Diagnosis (chest pain, altered mental status, abdominal pain women, abdominal pain men, vaginal bleeding, weakness, fever, dyspnea, syncope, headache, dizziness, GI bleed, back pain, seizure, CVA, palpatations, mental health, musculoskeletal)? @ -Dysmenorrhea, miscarriage, ectopic , fibroids EKG interpreted by me (3pts min.). @ -n/a X-rays interpreted by me (1pt min.). @ -None done CT interpreted by me (1pt min.). @ -None done U/S interpreted by me (1pt. min.). @ -None done What testing was considered but not performed or refused? (CT, X-rays, U/S, labs)? Why? @ -Ultrasound was considered however patient is not . Minimal abdominal pain. Minimal vaginal bleeding. What meds were considered but not given or refused? Why? @ -None Did you discuss the management of the patient with other professionals (professionals i.e. , PA, DIRECTOR GLO[employer] SALES, lab, RT, psych nurse, high school social studies teacher, calculation reviewer, teacher, seismology technical officer, showcase trimmer)? Give summary @ -No Was smoking cessation discussed for >3mins.? @ -No Was critical care preformed (if so, how long)? @ -No Were there social determinants of health that impacted care today? How? (Homelessness, low income, unemployed, alcoholism, drug addiction, transportation, low edu. Level, literacy, decrease access to med. care, [facility], rehab)? @ -No Was there de-escalation of care discussed even if they declined (Discuss DNR or withdrawal of care, Hospice)? DNR status @ -No What co-morbidities impacted this encounter? (DM, HTN, Smoking, COPD, CAD, Cancer, CVA, ARF, Chemo, Hep., AIDS, mental health diagnosis, sleep apnea, morbid obesity)? @ -None Was patient admitted / discharged? Hospital course, mention meds given and route, prescriptions, significant lab abnormalities, going to OR and other pertinent info. @ -Discharged 27-year-old female presents ambulatory with complaints of body aches and chills with abdominal pain for the past 3 days. States that she's had vaginal bleeding since she delivered her baby on June 15. States got Depo shot 6 weeks after delivery and denies any chance of . No known sick contacts. Did take 2 Covid tests at home that were negative. Does not have an OUTBOARD MOTOR ASSEMBLER or primary care doctor. Nonsmoker. History of ADHD, bipolar, depression, anxiety. , one stillbirth. Labs show no evidence of leukocytosis hemoglobin and hematocrit are stable. Pelvic exam shows mild vaginal bleeding with no lacerations. Patient was discharged home this is likely dysfunctional uterine bleeding status post vaginal delivery and Depo Provera injection 6 weeks . Dysfunctional uterine bleeding likely related to Depo-Provera injection. Patient instructed to follow up with her OUTBOARD MOTOR ASSEMBLER or primary care doctor for continuation of care. She is agreeable to this plan of care. Vital signs stable. Case discussed with Dr. Bran Undiagnosed new problem with uncertain prognosis? @ -No Drug Therapy requiring intensive monitoring for toxicity (Heparin, Nitro, Ins ulin, Cardizem)? @ -No Were any procedures done? @ -No Diagnosis/symptom? @ -Dysfunctional uterine bleeding Acute, or Chronic, or Acute on Chronic? @ -Acute Uncomplicated (without systemic symptoms) or Complicated (systemic symptoms)? @ -uncomplicated Side effects of treatment? @ -No Exacerbation, Progression, or Severe Exacerbation? @ -No Poses a threat to life or bodily function? How? (Chest pain, [place], [place], pneumonia, PE, COPD, DKA, ARF, appy, cholecystitis, CVA, Diverticulitis, Homicidal, Suicidal, threat to staff... and all critical care pts) @ -No - Lab Data Result diagrams: 10/21/22 07:47 10/21/22 07:47 Lab Results 10/21/22 10/21/22 10/21/22 Range/Units 07:47 07:47 07:47 WBC 5.3 (3.8-10.6) k/uL RBC 4.31 (3.80-5.40) m/uL Hgb 12.8 (11.4-16.0) gm/dL Hct 38.7 (34.0-46.0) % MCV 89.8 (80.0-100.0) fL MCH 29.7 (25.0-35.0) pg MCHC 33.0 (31.0-37.0) g/dL RDW 13.4 (11.5-15.5) % Plt Count 244 (150-450) k/uL MPV 9.1 Neutrophils % 60 % Lymphocytes % 31 % Monocytes % 5 % Eosinophils % 1 % Basophils % 0 % Neutrophils # 3.2 (1.3-7.7) k/uL Lymphocytes # 1.6 (1.0-4.8) k/uL Monocytes # 0.3 (0-1.0) k/uL Eosinophils # 0.1 (0-0.7) k/uL Basophils # 0.0 (0-0.2) k/uL Sodium 140 (137-145) mmol/L Potassium 3.8 (3.5-5.1) mmol/L Chloride 107 (98-107) mmol/L Carbon Dioxide 24 (22-30) mmol/L Anion Gap 9 mmol/L BUN 17 (7-17) mg/dL Creatinine 1.08 H (0.52-1.04) mg/dL Est GFR (CKD-EPI)AfAm 83 (>60 ml/min/1.73 sqM) Est GFR (CKD-EPI)NonAf 72 (>60 ml/min/1.73 sqM) Glucose 91 (74-99) mg/dL Calcium 9.3 (8.4-10.2) mg/dL Total Bilirubin 0.6 (0.2-1.3) mg/dL AST 23 (14-36) U/L ALT 17 (4-34) U/L Alkaline Phosphatase 45 (38-126) U/L Total Protein 7.4 (6.3-8.2) g/dL Albumin 4.5 (3.5-5.0) g/dL Amylase 78 (30-110) U/L Lipase 137 (23-300) U/L Urine Color Yellow Urine Appearance Cloudy H (Clear) Urine pH 6.5 (5.0-8.0) Ur Specific [place] 1.012 (1.001-1.035) Urine Protein 1+ H (Negative) Urine Glucose (UA) Negative (Negative) Urine Ketones Negative (Negative) Urine Blood Large H (Negative) Urine Nitrite Negative (Negative) Urine Bilirubin Negative (Negative) Urine Urobilinogen <2.0 (<2.0) mg/dL Ur Leukocyte Esterase Small H (Negative) Urine RBC >182 H (0-5) /hpf Urine WBC 15 H (0-5) /hpf Ur Squamous Epith Cells 12 H (0-4) /hpf Urine Mucus Rare H (None) /hpf Urine HCG, Qual (Not Detectd) 10/21/22 Range/Units 07:47 WBC (3.8-10.6) k/uL RBC (3.80-5.40) m/uL Hgb (11.4-16.0) gm/dL Hct (34.0-46.0) % MCV (80.0-100.0) fL MCH (25.0-35.0) pg MCHC (31.0-37.0) g/dL RDW (11.5-15.5) % Plt Count (150-450) k/uL MPV Neutrophils % % Lymphocytes % % Monocytes % % Eosinophils % % Basophils % % Neutrophils # (1.3-7.7) k/uL Lymphocytes # (1.0-4.8) k/uL Monocytes # (0-1.0) k/uL Eosinophils # (0-0.7) k/uL Basophils # (0-0.2) k/uL Sodium (137-145) mmol/L Potassium (3.5-5.1) mmol/L Chloride (98-107) mmol/L Carbon Dioxide (22-30) mmol/L Anion Gap mmol/L BUN (7-17) mg/dL Creatinine (0.52-1.04) mg/dL Est GFR (CKD-EPI)AfAm (>60 ml/min/1.73 sqM) Est GFR (CKD-EPI)NonAf (>60 ml/min/1.73 sqM) Glucose (74-99) mg/dL Calcium (8.4-10.2) mg/dL Total Bilirubin (0.2-1.3) mg/dL AST (14-36) U/L ALT (4-34) U/L Alkaline Phosphatase (38-126) U/L Total Protein (6.3-8.2) g/dL Albumin (3.5-5.0) g/dL Amylase (30-110) U/L Lipase (23-300) U/L Urine Color Urine Appearance (Clear) Urine pH (5.0-8.0) Ur Specific [place] (1.001-1.035) Urine Protein (Negative) Urine Glucose (UA) (Negative) Urine Ketones (Negative) Urine Blood (Negative) Urine Nitrite (Negative) Urine Bilirubin (Negative) Urine Urobilinogen (<2.0) mg/dL Ur Leukocyte Esterase (Negative) Urine RBC (0-5) /hpf Urine WBC (0-5) /hpf Ur Squamous Epith Cells (0-4) /hpf Urine Mucus (None) /hpf Urine HCG, Qual Not Detected (Not Detectd) Disposition Clinical Impression: Dysfunctional uterine bleeding Disposition: HOME SELF-CARE Condition: Good Instructions (If sedation given, give patient instructions): Abnormal (Dysfunctional) Uterine Bleeding (ED) Additional Instructions: Increase your fluid intake. Follow-up with your primary care doctor or OUTBOARD MOTOR ASSEMBLER next week. Return to emergency room with any new or concerning symptoms. Is patient prescribed a controlled substance at d/c from ED?: No Referrals: None,Stated [Primary Care Provider] - 1-2 days Forms: Area PCPs Time of Disposition: 08:51
[2022-10-21 08:05] LABS: Appearance,Urine Cloudy (Clear); Bilirubin,Urine Negative (Negative); Blood,Urine Large (Negative); Color,Urine Yellow; Glucose,Urine (UA) Negative (Negative); Ketones,Urine Negative (Negative); Leukocyte Esterase,Urine Small (Negative); Mucus,Urine Rare /hpf; Nitrite,Urine Negative (Negative); PH, Urine 6.5 (5.0-8.0); Protein,Urine 1+ (Negative); RBC,Urine >182 /hpf (0-5); Specific Gravity,Urine 1.012 (1.001-1.035); Squamous Epithelial Cell,Urine 12 /hpf (0-4); Urobilinogen,Urine <2.0 mg/dL (<2.0); WBC,Urine 15 /hpf (0-5)
[2022-10-21 08:18] LABS: Basophils % (A) 0 %; Eosinophils # (A) 0.1 k/uL (0-0.7); Eosinophils % (A) 1 %; HCT 38.7 % (34.0-46.0); HGB 12.8 gm/dL (11.4-16.0); Lymphocytes # (A) 1.6 k/uL (1.0-4.8); Lymphocytes % (A) 31 %; MCH 29.7 pg (25.0-35.0); MCV 89.8 fL (80.0-100.0); Mean Platelet Volume 9.1; Monocytes # (A) 0.3 k/uL (0-1.0); Monocytes % (A) 5 %; Neutrophils # (A) 3.2 k/uL (1.3-7.7); Neutrophils % (A) 60 %; Platelet Count 244 k/uL (150-450); RBC 4.31 m/uL (3.80-5.40); RDW 13.4 % (11.5-15.5); WBC 5.3 k/uL (3.8-10.6)
[2022-10-21 08:30] VITALS: RESP 18
[2022-10-21 08:38] LABS: ALT 17 U/L (4-34); AST 23 U/L (14-36); African American GFR (CKD) 83 (>60 ml/min/1.73 sqM); Albumin 4.5 g/dL (3.5-5.0); Alkaline Phosphatase 45 U/L (38-126); Amylase 78 U/L (30-110); Anion Gap 9 mmol/L; Blood Urea Nitrogen 17 mg/dL (7-17); Calcium 9.3 mg/dL (8.4-10.2); Carbon Dioxide 24 mmol/L (22-30); Chloride 107 mmol/L (98-107); Glucose 91 mg/dL (74-99); Lipase 137 U/L (23-300); Non-African American GFR(CKD) 72 (>60 ml/min/1.73 sqM); Potassium 3.8 mmol/L (3.5-5.1); Sodium 140 mmol/L (137-145); Total Bilirubin 0.6 mg/dL (0.2-1.3); Total Protein 7.4 g/dL (6.3-8.2)
[2022-10-21 09:11] VITALS: BP 119/85; PULSE 73; TEMP 97.9
== END 2022-10-21 09:20 | disposition home or self-care (01) ==
LOC: EC 07:07
DX: N93.8 Other specified abnormal uterine and vaginal bleeding (principal); Z91.040 Latex allergy status; Z88.8 Allergy status to other drugs, medicaments and biological substances; Z91.018 Allergy to other foods
CPT/HCPCS: 36415; 80053; 82150; 83690; 85025; 81001; 81025; 87086; 99284; 96374; 96361; J1885

== ENCOUNTER 2023-02-04 11:38 | Emergency (ER) | payer OTHER ==
--- NOTE | 2023-02-04 12:14 | ED ---
Abdominal Pain HPI - General Chief Complaint: Abdominal Pain Stated Complaint: Abd Pain Time Seen by Provider: 02/04/23 11:49 Source: patient, RN notes reviewed Mode of arrival: ambulatory Limitations: no limitations - History of Present Illness Initial Comments: 27-year-old female presents emergency Department with chief complaint of lower abdominal, flank pain. Patient states that his been getting worse last couple weeks. Patient states that she does a lot of issues since for child 8 months ago. She states she had excessive bleeding for 5 months states that she has not had a period in 2 months. She is on Depo-Provera. Patient denies any chance denies fevers or chills no prior abdominal surgeries. - Related Data Previous Rx's Medication Instructions Recorded Vit No.179/Iron/Folic 1 each PO DAILY 30 Days #30 tab 10/21/21 [ Tablet] Fluticasone Propionate [Flonase 1 spray EA NOSTRIL ONCE #9.9 ml 08/20/22 Allergy Relief] Ibuprofen 400 mg PO Q4-6H PRN #30 tablet 08/20/22 guaiFENesin-DM 600/30MG [Mucinex 1 tab PO Q12HR PRN 7 Days #14 tab 08/20/22 Dm] Allergies Allergy/AdvReac Type Severity Reaction Status Date / Time latex Allergy Rash/Hives Verified 02/04/23 11:46 amparo Allergy Anaphylaxis Verified 02/04/23 11:46 diphenhydramine AdvReac Nausea & Verified 02/04/23 11:46 [From Benadryl] Vomiting Review of Systems ROS Statement: Those systems with pertinent positive or pertinent negative responses have been documented in the HPI. ROS Other: All systems not noted in ROS Statement are negative. Past Medical History Past Medical History: No Reported History Additional Past Medical History / Comment(s): pancreatis, vertigo History of Any Multi-Drug Resistant Organisms: None Reported Past Surgical History: No Surgical Hx Reported Past Anesthesia/Blood Transfusion Reactions: No Reported Reaction Past Psychological History: ADD/ADHD, Anxiety, Bipolar, Depression Smoking Status: Never smoker Past Alcohol Use History: None Reported Past Drug Use History: None Reported - Past Family History Mother Family Medical History: Unable to Obtain Additional Family Medical History / Comment(s): adopted General Exam Limitations: no limitations General appearance: alert, in no apparent distress Head exam: Present: atraumatic, normocephalic, normal inspection Eye exam: Present: normal appearance, PERRL, EOMI. Absent: scleral icterus, conjunctival injection, periorbital swelling ENT exam: Present: normal exam, mucous membranes moist Neck exam: Present: normal inspection, full ROM. Absent: tenderness, meningismus, lymphadenopathy Respiratory exam: Present: normal lung sounds bilaterally. Absent: respiratory distress, wheezes, rales, rhonchi, stridor Cardiovascular Exam: Present: regular rate, normal rhythm, normal heart sounds. Absent: systolic murmur, diastolic murmur, rubs, gallop, clicks GI/Abdominal exam: Present: soft, tenderness (Lower primary on the left), normal bowel sounds. Absent: distended, guarding, rebound, rigid Back exam: Absent: CVA tenderness (R), CVA tenderness (L) Neurological exam: Present: alert, oriented X3 Skin exam: Present: warm, dry, intact, normal color. Absent: rash Course Vital Signs 02/04/23 02/04/23 02/04/23 11:44 13:05 14:43 Temperature 98.1 F 98.2 F Pulse Rate 86 75 73 Respiratory 18 20 18 Rate Blood Pressure 104/72 103/65 116/82 O2 Sat by Pulse 96 99 100 Oximetry Medical Decision Making - Medical Decision Making Was pt. sent in by a medical professional or institution (SHELLY Marquez, HOME MISSION WORKER, urgent care, hospital, or shelter...) When possible be specific @ -No Did you speak to anyone other than the patient for history (EMS, parent, family, police, friend...)? What history was obtained from this source @ -No Did you review nursing and triage notes (agree or disagree)? Why? @ -I reviewed and agree with nursing and triage notes Were old charts reviewed (outside hosp., previous admission, EMS record, old EKG, old radiological studies, urgent care reports/EKG's, shelter records)? Report findings @ -No old charts were reviewed Differential Diagnosis (chest pain, altered mental status, abdominal pain women, abdominal pain men, vaginal bleeding, weakness, fever, dyspnea, syncope, headache, dizziness, GI bleed, back pain, seizure, CVA, palpatations, mental health, musculoskeletal)? @ -Differential Abdominal Pain Women: Appendicitis, Cholecystitis, diverticulosis, ischemic bowel, pancreatitis, hepatitis, UTI, gastroenteritis, AAA, incarcerated hernia, bowel obstruction, constipation, inflammatory bowel, hepatitis, peptic ulcer disease, splenic infarction, perforated viscus, vulvitis, ovarian torsion, PID, kidney stone, placenta abruption, this is not meant to be an all-inclusive list EKG interpreted by me (3pts min.). @ -None X-rays interpreted by me (1pt min.). @ -None done CT interpreted by me (1pt min.). @ -None done U/S interpreted by me (1pt. min.). @ -Ultrasound transvaginal pelvic showing evidence of resolving hemorrhagic cyst on the left What testing was considered but not performed or refused? (CT, X-rays, U/S, labs)? Why? @ -None What meds were considered but not given or refused? Why? @ -None Did you discuss the management of the patient with other professionals (professionals i.e. , PA, HOME MISSION WORKER, lab, RT, psych nurse, delinquency prevention social worker, cable systems installer, te acher, safety instruction police officer, wrapper caser)? Give summary @ -No Was smoking cessation discussed for >3mins.? @ -No Was critical care preformed (if so, how long)? @ -No Were there social determinants of health that impacted care today? How? (Homelessness, low income, unemployed, alcoholism, drug addiction, transportation, low edu. Level, literacy, decrease access to med. care, longterm, rehab)? @ -No Was there de-escalation of care discussed even if they declined (Discuss DNR or withdrawal of care, Hospice)? DNR status @ -No What co-morbidities impacted this encounter? (DM, HTN, Smoking, COPD, CAD, Cancer, CVA, ARF, Chemo, Hep., AIDS, mental health diagnosis, sleep apnea, morbid obesity)? @ -None Was patient admitted / discharged? Hospital course, mention meds given and rou te, prescriptions, significant lab abnormalities, going to OR and other pertinent info. @ -Discharge patient lives or studies, urinalysis unremarkable. Patient has resolving hemorrhagic ovarian cyst. Patient continued ibuprofen treatment return parameters were discussed. Undiagnosed new problem with uncertain prognosis? @ -No Drug Therapy requiring intensive monitoring for toxicity (Heparin, Nitro, Insulin, Cardizem)? @ -No Were any procedures done? @ -No Diagnosis/symptom? @ -Abdominal pain, hemorrhagic ovarian cyst Acute, or Chronic, or Acute on Chronic? @ -acute Uncomplicated (without systemic symptoms) or Complicated (systemic symptoms)? @ -uncomplicated Side effects of treatment? @ -No Exacerbation, Progression, or Severe Exacerbation? @ -No Poses a threat to life or bodily function? How? (Chest pain, [place], [place], pneumonia, PE, COPD, DKA, ARF, appy, cholecystitis, CVA, Diverticulitis, Homicidal, Suicidal, threat to staff... and all critical care pts) @ -No - Lab Data Result diagrams: 02/04/23 12:02/04/23 12: Lab Results 02/04/23 02/04/23 02/04/23 Range/Units 12: 12: 12: WBC 5.8 (3.8-10.6) k/uL RBC 4.52 (3.80-5.40) m/uL Hgb 13.2 (11.4-16.0) gm/dL Hct 39.7 (34.0-46.0) % MCV 88.0 (80.0-100.0) fL MCH 29.2 (25.0-35.0) pg MCHC 33.2 (31.0-37.0) g/dL RDW 13.6 (11.5-15.5) % Plt Count 237 (150-450) k/uL MPV 9.0 Neutrophils % 64 % Lymphocytes % 28 % Monocytes % 4 % Eosinophils % 1 % Basophils % 0 % Neutrophils # 3.7 (1.3-7.7) k/uL Lymphocytes # 1.6 (1.0-4.8) k/uL Monocytes # 0.3 (0-1.0) k/uL Eosinophils # 0.1 (0-0.7) k/uL Basophils # 0.0 (0-0.2) k/uL Sodium (137-145) mmol/L Potassium (3.5-5.1) mmol/L Chloride (98-107) mmol/L Carbon Dioxide (22-30) mmol/L Anion Gap mmol/L BUN (7-17) mg/dL Creatinine (0.52-1.04) mg/dL Est GFR (CKD-EPI)AfAm (>60 ml/min/1.73 sqM) Est GFR (CKD-EPI)NonAf (>60 ml/min/1.73 sqM) Glucose (74-99) mg/dL Plasma Lactic Acid Kwadwo (0.7-2.0) mmol/L Calcium (8.4-10.2) mg/dL Total Bilirubin (0.2-1.3) mg/dL AST (14-36) U/L ALT (4-34) U/L Alkaline Phosphatase (38-126) U/L Total Protein (6.3-8.2) g/dL Albumin (3.5-5.0) g/dL Lipase (23-300) U/L Urine Color Colorless Urine Appearance Clear (Clear) Urine pH 6.5 (5.0-8.0) Ur Specific [place] 1.017 (1.001-1.035) Urine Protein Negative (Negative) Urine Glucose (UA) Negative (Negative) Urine Ketones Negative (Negative) Urine Blood Negative (Negative) Urine Nitrite Negative (Negative) Urine Bilirubin Negative (Negative) Urine Urobilinogen <2.0 (<2.0) mg/dL Ur Leukocyte Esterase Large H (Negative) Urine RBC 1 (0-5) /hpf Urine WBC 3 (0-5) /hpf Ur Squamous Epith Cells 8 H (0-4) /hpf Hyaline Casts 1 (0-2) /lpf Urine Mucus Rare H (None) /hpf Urine HCG, Qual Not Detected (Not Detectd) 02/04/23 02/04/23 Range/Units 12:26 12:26 WBC (3.8-10.6) k/uL RBC (3.80-5.40) m/uL Hgb (11.4-16.0) gm/dL Hct (34.0-46.0) % MCV (80.0-100.0) fL MCH (25.0-35.0) pg MCHC (31.0-37.0) g/dL RDW (11.5-15.5) % Plt Count (150-450) k/uL MPV Neutrophils % % Lymphocytes % % Monocytes % % Eosinophils % % Basophils % % Neutrophils # (1.3-7.7) k/uL Lymphocytes # (1.0-4.8) k/uL Monocytes # (0-1.0) k/uL Eosinophils # (0-0.7) k/uL Basophils # (0-0.2) k/uL Sodium 139 (137-145) mmol/L Potassium 4.3 (3.5-5.1) mmol/L Chloride 103 (98-107) mmol/L Carbon Dioxide 25 (22-30) mmol/L Anion Gap 11 mmol/L BUN 15 (7-17) mg/dL Creatinine 0.71 (0.52-1.04) mg/dL Est GFR (CKD-EPI)AfAm >90 (>60 ml/min/1.73 sqM) Est GFR (CKD-EPI)NonAf >90 (>60 ml/min/1.73 sqM) Glucose 89 (74-99) mg/dL Plasma Lactic Acid Kwadwo 0.9 (0.7-2.0) mmol/L Calcium 9.4 (8.4-10.2) mg/dL Total Bilirubin 0.7 (0.2-1.3) mg/dL AST 21 (14-36) U/L ALT 13 (4-34) U/L Alkaline Phosphatase 49 (38-126) U/L Total Protein 7.4 (6.3-8.2) g/dL Albumin 4.5 (3.5-5.0) g/dL Lipase 142 (23-300) U/L Urine Color Urine Appearance (Clear) Urine pH (5.0-8.0) Ur Specific [place] (1.001-1.035) Urine Protein (Negative) Urine Glucose (UA) (Negative) Urine Ketones (Negative) Urine Blood (Negative) Urine Nitrite (Negative) Urine Bilirubin (Negative) Urine Urobilinogen (<2.0) mg/dL Ur Leukocyte Esterase (Negative) Urine RBC (0-5) /hpf Urine WBC (0-5) /hpf Ur Squamous Epith Cells (0-4) /hpf Hyaline Casts (0-2) /lpf Urine Mucus (None) /hpf Urine HCG, Qual (Not Detectd) Disposition Clinical Impression: Abdominal pain, Hemorrhagic ovarian cyst Disposition: HOME SELF-CARE Condition: Stable Instructions (If sedation given, give patient instructions): Ovarian Cyst (ED) Additional Instructions: Please return to the Emergency Department if symptoms worsen or any other concerns. Is patient prescribed a controlled substance at d/c from ED?: No Referrals: None,Stated [Primary Care Provider] - 1-2 days Time of Disposition: 14:31
[2023-02-04 12:57] LABS: Basophils % (A) 0 %; Eosinophils # (A) 0.1 k/uL (0-0.7); Eosinophils % (A) 1 %; HCT 39.7 % (34.0-46.0); HGB 13.2 gm/dL (11.4-16.0); Lymphocytes # (A) 1.6 k/uL (1.0-4.8); Lymphocytes % (A) 28 %; MCH 29.2 pg (25.0-35.0); MCHC 33.2 g/dL (31.0-37.0); Monocytes # (A) 0.3 k/uL (0-1.0); Monocytes % (A) 4 %; Neutrophils # (A) 3.7 k/uL (1.3-7.7); Neutrophils % (A) 64 %; Platelet Count 237 k/uL (150-450); RBC 4.52 m/uL (3.80-5.40); RDW 13.6 % (11.5-15.5); WBC 5.8 k/uL (3.8-10.6)
[2023-02-04 13:06] LABS: ALT 13 U/L (4-34); AST 21 U/L (14-36); African American GFR (CKD) >90 (>60 ml/min/1.73 sqM); Albumin 4.5 g/dL (3.5-5.0); Alkaline Phosphatase 49 U/L (38-126); Anion Gap 11 mmol/L; Blood Urea Nitrogen 15 mg/dL (7-17); Calcium 9.4 mg/dL (8.4-10.2); Carbon Dioxide 25 mmol/L (22-30); Chloride 103 mmol/L (98-107); Glucose 89 mg/dL (74-99); Lipase 142 U/L (23-300); Non-African American GFR(CKD) >90 (>60 ml/min/1.73 sqM); Potassium 4.3 mmol/L (3.5-5.1); Sodium 139 mmol/L (137-145); Total Bilirubin 0.7 mg/dL (0.2-1.3); Total Protein 7.4 g/dL (6.3-8.2)
[2023-02-04 13:30] LABS: Appearance,Urine Clear (Clear); Bilirubin,Urine Negative (Negative); Blood,Urine Negative (Negative); Color,Urine Colorless; Glucose,Urine (UA) Negative (Negative); Hyaline Casts,Urine 1 /lpf (0-2); Ketones,Urine Negative (Negative); Leukocyte Esterase,Urine Large (Negative); Mucus,Urine Rare /hpf; Nitrite,Urine Negative (Negative); PH, Urine 6.5 (5.0-8.0); Protein,Urine Negative (Negative); RBC,Urine 1 /hpf (0-5); Specific Gravity,Urine 1.017 (1.001-1.035); Squamous Epithelial Cell,Urine 8 /hpf (0-4); Urobilinogen,Urine <2.0 mg/dL (<2.0); WBC,Urine 3 /hpf (0-5)
--- NOTE | 2023-02-04 14:25 | US ---
EXAMINATION TYPE: US transvaginal DATE OF EXAM: 02/04/2023 COMPARISON: NONE CLINICAL INDICATION: Female, 27 years old with history of pain; Irregular menses since vaginal delive ry 8 months ago. Vaginal bleeding for 5 months after delivery. 2 days vaginal bleeding beginning of N ovember. LLQ pain for 2-3 weeks TECHNIQUE: Transvaginal (TV). Date of LMP: unknown EXAM MEASUREMENTS: Uterus: 8.3 x 4.5 x 4.9 cm Endometrial Stripe: 1.0 cm Right Ovary: unable to visualize Left Ovary: 3.3 x 3.5 x 1.6 cm 1. Uterus: Retroverted heterogeneous 2. Endometrium: small amount of fluid = 0.5cm 3. Right Ovary: Obscured by overlying bowel gas 4. Left Ovary: complex lesion = 2.2 x 1.6 x 1.8cm Spectral, color and waveform doppler imaging shows good arterial and venous flow within the left ov apolinar; there is no evidence for ovarian torsion. 5. Bilateral Adnexa: prominent vascularity 6. Posterior cul-de-sac: wnl IMPRESSION: 1. No evidence for acute pelvic process. 2. Endometrium slightly heterogenous with trace amount of fluid within. 3. Left ovarian involuting hemorrhagic cyst versus follicle.
[2023-02-04 14:45] VITALS: BP 116/82; PULSE 73; RESP 18; TEMP 98.2
== END 2023-02-04 14:45 | disposition home or self-care (01) ==
LOC: EC 11:38
DX: N83.202 Unspecified ovarian cyst, left side (principal); Z88.8 Allergy status to other drugs, medicaments and biological substances; Z91.040 Latex allergy status; Z91.018 Allergy to other foods
CPT/HCPCS: 36415; 76830; 80053; 81001; 81025; 83605; 83690; 85025; 93976; 99284

== ENCOUNTER 2023-02-07 15:42 | Emergency (ER) | payer OTHER ==
--- NOTE | 2023-02-07 16:26 | ED ---
Female Urogenital HPI - General Source: patient, RN notes reviewed Mode of arrival: wheelchair <Ghazal Cardenas - Last Filed: 02/07/23 16:25> <Rajendra Godinez - Last Filed: 02/07/23 20:55> - General Chief complaint: Vaginal Bleeding Stated complaint: Ovarian Cyst Rupture Time Seen by Provider: 02/07/23 16:25 - History of Present Illness Initial comments: Patient is a 27-year-old female presented ER with chief complaint of abdominal pain. Patient was recently diagnosed of a hemorrhagic cyst on her ovary. She states today her pain suddenly worsened and is now endorsing bleeding. Patient also states that she is having lightheadedness and chest pain. Patient denies any fevers, chills, night sweats. (Ghazal Cardenas) - Related Data Previous Rx's Medication Instructions Recorded Vit No.179/Iron/Folic 1 each PO DAILY 30 Days #30 tab 10/21/21 [ Tablet] Fluticasone Propionate [Flonase 1 spray EA NOSTRIL ONCE #9.9 ml 08/20/22 Allergy Relief] Ibuprofen 400 mg PO Q4-6H PRN #30 tablet 08/20/22 guaiFENesin-DM 600/30MG [Mucinex 1 tab PO Q12HR PRN 7 Days #14 tab 08/20/22 Dm] Acetaminophen Tab [Tylenol] 650 mg PO Q6H #30 tab 02/07/23 Ibuprofen [Motrin] 600 mg PO Q8HR PRN #30 tab 02/07/23 Allergies Allergy/AdvReac Type Severity Reaction Status Date / Time latex Allergy Rash/Hives Verified 02/07/23 16:04 amparo Allergy Anaphylaxis Verified 02/07/23 16:04 diphenhydramine AdvReac Nausea & Verified 02/07/23 16:04 [From Benadryl] Vomiting Review of Systems ROS Other: All systems not noted in ROS Statement are negative. <Ghazal Cardenas - Last Filed: 02/07/23 16:25> ROS Other: All systems not noted in ROS Statement are negative. <Rajendra Godinez - Last Filed: 02/07/23 20:55> ROS Statement: Those systems with pertinent positive or pertinent negative responses have been documented in the HPI. Past Medical History Past Medical History: No Reported History Additional Past Medical History / Comment(s): pancreatis, vertigo History of Any Multi-Drug Resistant Organisms: None Reported Past Surgical History: No Surgical Hx Reported Past Anesthesia/Blood Transfusion Reactions: No Reported Reaction Past Psychological History: ADD/ADHD, Anxiety, Bipolar, Depression Smoking Status: Never smoker Past Alcohol Use History: None Reported Past Drug Use History: None Reported - Past Family History Mother Family Medical History: Unable to Obtain Additional Family Medical History / Comment(s): adopted <Ghazal Cardenas - Last Filed: 02/07/23 16:25> General Exam <Ghazal Cardenas - Last Filed: 02/07/23 16:25> General appearance: alert, in no apparent distress Eye exam: Present: normal appearance Neck exam: Present: normal inspection Respiratory exam: Present: normal lung sounds bilaterally, other (Reproducible tenderness to palpation of the sternum and chest wall) Cardiovascular Exam: Present: regular rate, normal rhythm GI/Abdominal exam: Present: soft Neurological exam: Present: alert Skin exam: Present: warm, dry <Rajendra Godinez - Last Filed: 02/07/23 20:55> - General Exam Comments Initial Comments: Visual Physical Exam Vital signs reviewed General: Well-appearing, nontoxic, no acute distress. Head: Normocephalic, atraumatic Eyes: PERRLA, EOMI ENT: Airway patent Chest: Nonlabored breathing Skin: No visual rash, normal skin tone Neuro: Alert and oriented 3 Musculoskeletal: No gross abnormalities (Ghazal Cardenas) Course Vital Signs 02/07/23 16:02 Temperature 98.0 F Pulse Rate 84 Respiratory 16 Rate Blood Pressure 111/71 O2 Sat by Pulse 98 Oximetry Medical Decision Making <Ghazal Cardenas - Last Filed: 02/07/23 16:25> - Lab Data Result diagrams: 02/07/23 17:32 02/07/23 17:32 <Rajendra Godinez - Last Filed: 02/07/23 20:55> - Medical Decision Making I performed the quick note portion of the exam. Electronically signed by Ghazal Cardenas PA-C (Ghazal Cardenas) Was pt. sent in by a medical professional or institution (SHELLY Marquez, MARKET RESEARCH ASSISTANT, urgent care, hospital, or residential...) When possible be specific @ -No Did you speak to anyone other than the patient for history (EMS, parent, family, police, friend...)? What history was obtained from this source @ -No Did you review nursing and triage notes (agree or disagree)? Why? @ -I reviewed and agree with nursing and triage notes Were old charts reviewed (outside hosp., previous admission, EMS record, old EKG, old radiological studies, urgent care reports/EKG's, residential records)? Report findings @ -No old charts were reviewed Differential Diagnosis (chest pain, altered mental status, abdominal pain women, abdominal pain men, vaginal bleeding, weakness, fever, dyspnea, syncope, headache, dizziness, GI bleed, back pain, seizure, CVA, palpatations, mental health, musculoskeletal)? @ -Differential Vaginal Bleeding: Spontaneous , threatened , molar , ectopic , bloody show, incompetent cervix, abruptioplacenta, placenta previa, uterine rupture, dysfunctional uterine bleeding, hemorrhage, uterine fibroids, this is not meant to be an all-inclusive list. EKG interpreted by me (3pts min.). @ -None X-rays interpreted by me (1pt min.). @ -None done CT interpreted by me (1pt min.). @ -None done U/S interpreted by me (1pt. min.). @ -Transvaginal ultrasound read by me showing findings consistent with hemorrhagic cyst decrease in size compared to prior. What testing was considered but not performed or refused? (CT, X-rays, U/S, labs)? Why? @ -None What meds were considered but not given or refused? Why? @ -None Did you discuss the management of the patient with other professionals (professionals i.e. , PA, MARKET RESEARCH ASSISTANT, lab, RT, psych nurse, director of social media marketing, manager meat, teacher, credit officer, rn case mgr)? Give summary @ -Spoke to Dr. Zhang, who agrees to plan of care and will see the patient on an outpatient basis. Was smoking cessation discussed for >3mins.? @ -No Was critical care preformed (if so, how long)? @ -No Were there social determinants of health that impacted care today? How? (Homelessness, low income, unemployed, alcoholism, drug addiction, transportation, low edu. Level, literacy, decrease access to med. care, long-term, rehab)? @ -No Was there de-escalation of care discussed even if they declined (Discuss DNR or withdrawal of care, Hospice)? DNR status @ -No What co-morbidities impacted this encounter? (DM, HTN, Smoking, COPD, CAD, Cancer, CVA, ARF, Chemo, Hep., AIDS, mental health diagnosis, sleep apnea, morbid obesity)? @ -None Was patient admitted / discharged? Hospital course, mention meds given and route, prescriptions, significant lab abnormalities, going to OR and other pertinent info. @ -Discharge 27 year old female presented to the ED with chief complaint abdominal pain and vaginal bleeding. Patient initially here on 01/25/23. At that time patient 's hCG was negative and finding of left hemorrhagic cyst measuring 2.2 x 1.6 x 1.8 cm. A, patient presenting with increased pain with some vaginal bleeding as well. Transvaginal ultrasound shows cyst decreasing in size measuring at 1.3 x 1.2 x 1.1 cm. Laboratory studies reviewed. CBC shows hemoglobin stable at 13. Discussed case with Dr. Zhang, who will see the patient on an outpatient basis. This time vital signs stable, afebrile. Patient discharged home in stable condition. Discussed strict return precautions with patient who verbalizes agreement. Undiagnosed new problem with uncertain prognosis? @ -No Drug Therapy requiring intensive monitoring for toxicity (Heparin, Nitro, Insul in, Cardizem)? @ -No Were any procedures done? @ -No Diagnosis/symptom? @ -Hemorrhagic ovarian cyst Acute, or Chronic, or Acute on Chronic? @ -Acute Uncomplicated (without systemic symptoms) or Complicated (systemic symptoms)? @ -Uncomplicated Side effects of treatment? @ -No Exacerbation, Progression, or Severe Exacerbation? @ -No Poses a threat to life or bodily function? How? (Chest pain, [place], [place], pneumonia, PE, COPD, DKA, ARF, appy, cholecystitis, CVA, Diverticulitis, Homicidal, Suicidal, threat to staff... and all critical care pts) @ -No (Rajendra Godinez) - Lab Data Lab Results 02/07/23 02/07/23 Range/Units 17:32 17:32 WBC 8.1 (3.8-10.6) k/uL RBC 4.28 (3.80-5.40) m/uL Hgb 13.0 (11.4-16.0) gm/dL Hct 38.1 (34.0-46.0) % MCV 89.1 (80.0-100.0) fL MCH 30.4 (25.0-35.0) pg MCHC 34.2 (31.0-37.0) g/dL RDW 13.3 (11.5-15.5) % Plt Count 252 (150-450) k/uL MPV 8.3 Sodium 139 (137-145) mmol/L Potassium 3.9 (3.5-5.1) mmol/L Chloride 104 (98-107) mmol/L Carbon Dioxide 22 (22-30) mmol/L Anion Gap 13 mmol/L BUN 21 H (7-17) mg/dL Creatinine 0.74 (0.52-1.04) mg/dL Est GFR (CKD-EPI)AfAm >90 (>60 ml/min/1.73 sqM) Est GFR (CKD-EPI)NonAf >90 (>60 ml/min/1.73 sqM) Glucose 59 L (74-99) mg/dL Calcium 9.1 (8.4-10.2) mg/dL Total Bilirubin 0.3 (0.2-1.3) mg/dL AST 18 (14-36) U/L ALT 13 (4-34) U/L Alkaline Phosphatase 51 (38-126) U/L Total Protein 7.4 (6.3-8.2) g/dL Albumin 4.5 (3.5-5.0) g/dL Disposition <Ghazal Cardenas - Last Filed: 02/07/23 16:25> Is patient prescribed a controlled substance at d/c from ED?: No Time of Disposition: 20:09 <Rajendra Godinez - Last Filed: 02/07/23 20:55> Clinical Impression: Hemorrhagic ovarian cyst Disposition: HOME SELF-CARE Condition: Good Additional Instructions: Please return to the Emergency Department if symptoms worsen or any other concerns. Please follow up with your MORTGAGE LOAN COORDINATOR Prescriptions: Ibuprofen [Motrin] 600 mg PO Q8HR PRN #30 tab PRN Reason: Pain Acetaminophen Tab [Tylenol] 650 mg PO Q6H #30 tab Referrals: None,Stated [Primary Care Provider] - 1-2 days
[2023-02-07 17:42] LABS: HCT 38.1 % (34.0-46.0); MCH 30.4 pg (25.0-35.0); MCHC 34.2 g/dL (31.0-37.0); MCV 89.1 fL (80.0-100.0); Mean Platelet Volume 8.3; Platelet Count 252 k/uL (150-450); RBC 4.28 m/uL (3.80-5.40); RDW 13.3 % (11.5-15.5); WBC 8.1 k/uL (3.8-10.6)
[2023-02-07 17:52] LABS: ALT 13 U/L (4-34); AST 18 U/L (14-36); African American GFR (CKD) >90 (>60 ml/min/1.73 sqM); Albumin 4.5 g/dL (3.5-5.0); Alkaline Phosphatase 51 U/L (38-126); Anion Gap 13 mmol/L; Blood Urea Nitrogen 21 mg/dL (7-17); Calcium 9.1 mg/dL (8.4-10.2); Carbon Dioxide 22 mmol/L (22-30); Chloride 104 mmol/L (98-107); Glucose 59 mg/dL (74-99); Non-African American GFR(CKD) >90 (>60 ml/min/1.73 sqM); Potassium 3.9 mmol/L (3.5-5.1); Sodium 139 mmol/L (137-145); Total Bilirubin 0.3 mg/dL (0.2-1.3); Total Protein 7.4 g/dL (6.3-8.2)
--- NOTE | 2023-02-07 18:56 | US ---
EXAMINATION TYPE: US transvaginal DATE OF EXAM: 02/07/2023 COMPARISON: 02/04/23 CLINICAL INDICATION: Female, 27 years old with history of pain; LLQ pain x 1 month and getting worse. TECHNIQUE: Transvaginal (TV). Pt could not tolerate angling of probe to obtain transverse UT images. Date of LMP: Irregular periods since giving in June 2022 EXAM MEASUREMENTS: Uterus: 6.3 x 4.3 cm Endometrial Stripe: 1.1 cm Right Ovary: Not seen cm Left Ovary: 2.8 x 1.8 x 1.8 cm 1. Uterus: Retroverted wnl 2. Endometrium: wnl 3. Right Ovary: Obscured by overlying bowel gas 4. Left Ovary: Complex structure seen again measuring 1.3 x 1.2 x 1.1cm Spectral, color and waveform doppler imaging shows good arterial and venous flow within the ovaries ; there is no evidence for ovarian torsion. 5. Bilateral Adnexa: No free fluid seen 6. Posterior cul-de-sac: wnl IMPRESSION: 1. Suspected left ovarian hemorrhagic cyst measuring up to 1.3 cm, finding is decreased in size in e interval. 2. Nonvisualization of the right ovary.
[2023-02-07] MEDS ORDERED: ACET/COD 300 MG/30 MG STARTER PACK 6 TAB BTL PO STA (20:09)
[2023-02-07 21:46] VITALS: BP 117/76; PULSE 79; RESP 18; TEMP 98.3
== END 2023-02-07 21:30 | disposition home or self-care (01) ==
LOC: EC 15:42
DX: N83.202 Unspecified ovarian cyst, left side (principal); E11.9 Type 2 diabetes mellitus without complications; Z91.040 Latex allergy status; Z88.8 Allergy status to other drugs, medicaments and biological substances; Z91.018 Allergy to other foods; Z86.59 Personal history of other mental and behavioral disorders
CPT/HCPCS: 36415; 76830; 80053; 85027; 93976; 99284

== ENCOUNTER 2023-06-10 17:18 | Emergency (ER) | payer OTHER ==
[2023-06-10 17:47] LABS: Appearance,Urine Cloudy (Clear); Bacteria,Urine Rare /hpf; Bilirubin,Urine Negative (Negative); Blood,Urine Negative (Negative); Color,Urine Colorless; Glucose,Urine (UA) Negative (Negative); Ketones,Urine Negative (Negative); Leukocyte Esterase,Urine Negative (Negative); Mucus,Urine Rare /hpf; Nitrite,Urine Negative (Negative); PH, Urine 6.5 (5.0-8.0); Protein,Urine Negative (Negative); RBC,Urine 2 /hpf (0-5); Specific Gravity,Urine 1.026 (1.001-1.035); Squamous Epithelial Cell,Urine 5 /hpf (0-4); Urobilinogen,Urine <2.0 mg/dL (<2.0); WBC,Urine 1 /hpf (0-5)
--- NOTE | 2023-06-10 18:13 | ED ---
Female Urogenital HPI - General Chief complaint: Urogenital Stated complaint: Abd Pain Time Seen by Provider: 06/10/23 18:05 Source: patient, RN notes reviewed Mode of arrival: ambulatory Limitations: no limitations - History of Present Illness Initial comments: 27-year-old female presented to the ED with a chief complaint of dysuria. Patient states 5 to 6 days ago started to experience pain with urination. Also notes urinary frequency and feels like she is not completely emptying her bladder as well. Over the last few days has also developed right lower abdominal pain that seems to wrap around to her flank. Denies concern for STD. Has abnormal vaginal discharge. Denies fever or chills. No chest pain or shortness of breath. No other complaints at this time. Last Menstrual Period: 05/27/23 - Related Data Previous Rx's Medication Instructions Recorded Vit No.179/Iron/Folic 1 each PO DAILY 30 Days #30 tab 10/21/21 [ Tablet] Fluticasone Propionate [Flonase 1 spray EA NOSTRIL ONCE #9.9 ml 08/20/22 Allergy Relief] Ibuprofen 400 mg PO Q4-6H PRN #30 tablet 08/20/22 guaiFENesin-DM 600/30MG [Mucinex 1 tab PO Q12HR PRN 7 Days #14 tab 08/20/22 Dm] Acetaminophen Tab [Tylenol] 650 mg PO Q6H #30 tab 02/07/23 Ibuprofen [Motrin] 600 mg PO Q8HR PRN #30 tab 02/07/23 Loratadine 10 mg PO DAILY #20 tablet 04/05/23 Sulfamethox-Tmp 800-160Mg [Bactrim 1 each PO Q12HR 5 Days #10 tab 06/10/23 Ds] Allergies Allergy/AdvReac Type Severity Reaction Status Date / Time latex Allergy Rash/Hives Verified 02/07/23 16:04 amparo Allergy Anaphylaxis Verified 02/07/23 16:04 diphenhydramine AdvReac Nausea & Verified 02/07/23 16:04 [From Benadryl] Vomiting Review of Systems ROS Statement: Those systems with pertinent positive or pertinent negative responses have been documented in the HPI. ROS Other: All systems not noted in ROS Statement are negative. Past Medical History Past Medical History: No Reported History Additional Past Medical History / Comment(s): pancreatis, vertigo History of Any Multi-Drug Resistant Organisms: None Reported Past Surgical History: No Surgical Hx Reported Past Anesthesia/Blood Transfusion Reactions: No Reported Reaction Past Psychological History: ADD/ADHD, Anxiety, Bipolar, Depression Smoking Status: Never smoker Past Alcohol Use History: None Reported Past Drug Use History: None Reported - Past Family History Mother Family Medical History: Unable to Obtain Additional Family Medical History / Comment(s): adopted General Exam Limitations: no limitations General appearance: alert, in no apparent distress Eye exam: Present: normal appearance Neck exam: Present: normal inspection Respiratory exam: Present: normal lung sounds bilaterally Cardiovascular Exam: Present: regular rate, normal rhythm GI/Abdominal exam: Present: soft (Suprapubic right lower tenderness to palpati on. Negative McBurney's point tenderness to palpation. Negative Rovsing sign. No rebound guarding or rigidity. Bowel sounds normal.) Neurological exam: Present: alert, oriented X3 Skin exam: Present: warm, dry Course Vital Signs 06/10/23 17:28 Temperature 98 F Pulse Rate 68 Respiratory 16 Rate Blood Pressure 120/82 O2 Sat by Pulse 99 Oximetry Medical Decision Making - Medical Decision Making Was pt. sent in by a medical professional or institution (, PA, VESSEL TRAFFIC OFFICER, urgent care, hospital, or [facility]...) When possible be specific @ -No Did you speak to anyone other than the patient for history (EMS, parent, family, police, friend...)? What history was obtained from this source @ -No Did you review nursing and triage notes (agree or disagree)? Why? @ -I reviewed and agree with nursing and triage notes Were old charts reviewed (outside hosp., previous admission, EMS record, old EKG, old radiological studies, urgent care reports/EKG's, [facility] records)? Report findings @ -No old charts were reviewed Differential Diagnosis (chest pain, altered mental status, abdominal pain women, abdominal pain men, vaginal bleeding, weakness, fever, dyspnea, syncope, headache, dizziness, GI bleed, back pain, seizure, CVA, palpatations, mental health, musculoskeletal)? @ -Differential Abdominal Pain Men: Appendicitis, cholecystitis, diverticulosis, ischemic bowel, pancreatitis, hepatitis, UTI, gastroenteritis, AAA, incarcerated hernia, bowel obstruction, constipation, inflammatory bowel, hepatitis, peptic ulcer disease, splenic infarction, perforated viscus, testicular torsion, this is not meant to be an all-inclusive list EKG interpreted by me (3pts min.). @ -None X-rays interpreted by me (1pt min.). @ -None done CT interpreted by me (1pt min.). @ -None done U/S interpreted by me (1pt. min.). @ -Transvaginal and bladder ultrasound to primary which revealed no evidence of acute finding. What testing was considered but not performed or refused? (CT, X-rays, U/S, labs)? Why? @ -None What meds were considered but not given or refused? Why? @ -None Did you discuss the management of the patient with other professionals (professionals i.e. , PA, VESSEL TRAFFIC OFFICER, lab, RT, psych nurse, director social service, slide fastener chain assembler, teacher, nuclear security officer, shoe parts caser)? Give summary @ -No Was smoking cessation discussed for >3mins.? @ -No Was critical care preformed (if so, how long)? @ -No Were there social determinants of health that impacted care today? How? (Homelessness, low income, unemployed, alcoholism, drug addiction, transportation, low edu. Level, literacy, decrease access to med. care, intermediate, rehab)? @ -No Was there de-escalation of care discussed even if they declined (Discuss DNR or withdrawal of care, Hospice)? DNR status @ -No What co-morbidities impacted this encounter? (DM, HTN, Smoking, COPD, CAD, Cancer, CVA, ARF, Chemo, Hep., AIDS, mental health diagnosis, sleep apnea, morbid obesity)? @ -None Was patient admitted / discharged? Hospital course, mention meds given and route, prescriptions, significant lab abnormalities, going to OR and other pertinent info. @ -Discharge 27-year-old female presenting to the ED with complaints of dysuria and some lower abdominal pain for the past 5 to 6 days seeming to worsen today prompting presentation to the ED for further evaluation. Laboratory studies reviewed. CBC unremarkable. Chemistry panel unremarkable. Urine is cloudy appearing with rare bacteria however no nitrites or leukocyte esterase or significant elevation white blood cell counts. Urine hCG negative. Ultrasound of the kidneys revealed no evidence of stone. Transvaginal ultrasound revealed no evidence of acute process. Due to patient being symptomatic will be treated for urinary tract infection. Discharged home in stable condition with instructions to closely follow-up with her PCP. Discussed return precautions with patient who verbalized agreement. Undiagnosed new problem with uncertain prognosis? @ -No Drug Therapy requiring intensive monitoring for toxicity (Heparin, Nitro, Insulin, Cardizem)? @ -No Were any procedures done? @ -No Diagnosis/symptom? @ -Abdominal pain, dysuria Acute, or Chronic, or Acute on Chronic? @ -Acute Uncomplicated (without systemic symptoms) or Complicated (systemic symptoms)? @ -Uncomplicated Side effects of treatment? @ -No Exacerbation, Progression, or Severe Exacerbation? @ -No Poses a threat to life or bodily function? How? (Chest pain, [place], [place], pneumonia, PE, COPD, DKA, ARF, appy, cholecystitis, CVA, Diverticulitis, Homicidal, Suicidal, threat to staff... and all critical care pts) @ -No - Lab Data Result diagrams: 06/10/23 19:28 06/10/23 19:28 Lab Results 06/10/23 06/10/23 06/10/23 Range/Units 17:31 17:31 19:28 WBC 7.2 (3.8-10.6) k/uL RBC 4.64 (3.80-5.40) m/uL Hgb 13.4 (11.4-16.0) gm/dL Hct 42.4 (34.0-46.0) % MCV 91.3 (80.0-100.0) fL MCH 28.8 (25.0-35.0) pg MCHC 31.6 (31.0-37.0) g/dL RDW 13.8 (11.5-15.5) % Plt Count 216 (150-450) k/uL MPV 9.0 Neutrophils % 70 % Lymphocytes % 22 % Monocytes % 5 % Eosinophils % 1 % Basophils % 0 % Neutrophils # 5.0 (1.3-7.7) k/uL Lymphocytes # 1.6 (1.0-4.8) k/uL Monocytes # 0.4 (0-1.0) k/uL Eosinophils # 0.1 (0-0.7) k/uL Basophils # 0.0 (0-0.2) k/uL Sodium (137-145) mmol/L Potassium (3.5-5.1) mmol/L Chloride (98-107) mmol/L Carbon Dioxide (22-30) mmol/L Anion Gap mmol/L BUN (7-17) mg/dL Creatinine (0.52-1.04) mg/dL Est GFR (CKD-EPI)AfAm (>60 ml/min/1.73 sqM) Est GFR (CKD-EPI)NonAf (>60 ml/min/1.73 sqM) Glucose (74-99) mg/dL Calcium (8.4-10.2) mg/dL Total Bilirubin (0.2-1.3) mg/dL AST (14-36) U/L ALT (4-34) U/L Alkaline Phosphatase (38-126) U/L Total Protein (6.3-8.2) g/dL Albumin (3.5-5.0) g/dL Urine Color Colorless Urine Appearance Cloudy H (Clear) Urine pH 6.5 (5.0-8.0) Ur Specific [place] 1.026 (1.001-1.035) Urine Protein Negative (Negative) Urine Glucose (UA) Negative (Negative) Urine Ketones Negative (Negative) Urine Blood Negative (Negative) Urine Nitrite Negative (Negative) Urine Bilirubin Negative (Negative) Urine Urobilinogen <2.0 (<2.0) mg/dL Ur Leukocyte Esterase Negative (Negative) Urine RBC 2 (0-5) /hpf Urine WBC 1 (0-5) /hpf Ur Squamous Epith Cells 5 H (0-4) /hpf Urine Bacteria Rare H (None) /hpf Urine Mucus Rare H (None) /hpf Urine HCG, Qual Not Detected (Not Detectd) 06/10/23 Range/Units 19:28 WBC (3.8-10.6) k/uL RBC (3.80-5.40) m/uL Hgb (11.4-16.0) gm/dL Hct (34.0-46.0) % MCV (80.0-100.0) fL MCH (25.0-35.0) pg MCHC (31.0-37.0) g/dL RDW (11.5-15.5) % Plt Count (150-450) k/uL MPV Neutrophils % % Lymphocytes % % Monocytes % % Eosinophils % % Basophils % % Neutrophils # (1.3-7.7) k/uL Lymphocytes # (1.0-4.8) k/uL Monocytes # (0-1.0) k/uL Eosinophils # (0-0.7) k/uL Basophils # (0-0.2) k/uL Sodium 138 (137-145) mmol/L Potassium 4.0 (3.5-5.1) mmol/L Chloride 105 (98-107) mmol/L Carbon Dioxide 25 (22-30) mmol/L Anion Gap 8 mmol/L BUN 24 H (7-17) mg/dL Creatinine 0.77 (0.52-1.04) mg/dL Est GFR (CKD-EPI)AfAm >90 (>60 ml/min/1.73 sqM) Est GFR (CKD-EPI)NonAf >90 (>60 ml/min/1.73 sqM) Glucose 81 (74-99) mg/dL Calcium 9.3 (8.4-10.2) mg/dL Total Bilirubin 0.3 (0.2-1.3) mg/dL AST 17 (14-36) U/L ALT 10 (4-34) U/L Alkaline Phosphatase 52 (38-126) U/L Total Protein 7.1 (6.3-8.2) g/dL Albumin 4.3 (3.5-5.0) g/dL Urine Color Urine Appearance (Clear) Urine pH (5.0-8.0) Ur Specific [place] (1.001-1.035) Urine Protein (Negative) Urine Glucose (UA) (Negative) Urine Ketones (Negative) Urine Blood (Negative) Urine Nitrite (Negative) Urine Bilirubin (Negative) Urine Urobilinogen (<2.0) mg/dL Ur Leukocyte Esterase (Negative) Urine RBC (0-5) /hpf Urine WBC (0-5) /hpf Ur Squamous Epith Cells (0-4) /hpf Urine Bacteria (None) /hpf Urine Mucus (None) /hpf Urine HCG, Qual (Not Detectd) Disposition Clinical Impression: Abdominal pain, Dysuria Disposition: HOME SELF-CARE Condition: Good Instructions (If sedation given, give patient instructions): Urinary Tract Infection in Women (ED) Additional Instructions: Please return to the Emergency Department if symptoms worsen or any other concerns. Please follow-up with your primary care provider. Prescriptions: Sulfamethox-Tmp 800-160Mg [Bactrim Ds] 1 each PO Q12HR 5 Days #10 tab Is patient prescribed a controlled substance at d/c from ED?: No Referrals: None,Stated [Primary Care Provider] - 1-2 days Time of Disposition: 22:00
--- NOTE | 2023-06-10 18:45 | US ---
EXAMINATION TYPE: US renals and bladder DATE OF EXAM: 06/10/2023 COMPARISON: NONE CLINICAL INDICATION: Female, 27 years old with history of dysuria flank pain; right flank pain with d ysuria for 5 days EXAM MEASUREMENTS: Right Kidney: 11.4 x 4.3 x 3.7 cm Left Kidney: 9.6 x 3.7 x 3.2 cm Right Kidney: No hydronephrosis or masses seen Left Kidney: No hydronephrosis or masses seen Bladder: not fully distended There is no evidence for hydronephrosis at this point in time. No nephrolithiasis is seen. No trent s are identified. The urinary bladder is anechoic. IMPRESSION: No evidence of obstructive uropathy or renal calculus.
[2023-06-10] MEDS: KETOROLAC 15 MG/ML 1 ML VIAL IVP STA (19:31)
[2023-06-10 19:53] LABS: Basophils % (A) 0 %; Eosinophils # (A) 0.1 k/uL (0-0.7); Eosinophils % (A) 1 %; HCT 42.4 % (34.0-46.0); HGB 13.4 gm/dL (11.4-16.0); Lymphocytes # (A) 1.6 k/uL (1.0-4.8); Lymphocytes % (A) 22 %; MCH 28.8 pg (25.0-35.0); MCHC 31.6 g/dL (31.0-37.0); MCV 91.3 fL (80.0-100.0); Monocytes # (A) 0.4 k/uL (0-1.0); Monocytes % (A) 5 %; Neutrophils % (A) 70 %; Platelet Count 216 k/uL (150-450); RBC 4.64 m/uL (3.80-5.40); RDW 13.8 % (11.5-15.5); WBC 7.2 k/uL (3.8-10.6)
[2023-06-10 20:17] LABS: ALT 10 U/L (4-34); AST 17 U/L (14-36); African American GFR (CKD) >90 (>60 ml/min/1.73 sqM); Albumin 4.3 g/dL (3.5-5.0); Alkaline Phosphatase 52 U/L (38-126); Anion Gap 8 mmol/L; Blood Urea Nitrogen 24 mg/dL (7-17); Calcium 9.3 mg/dL (8.4-10.2); Carbon Dioxide 25 mmol/L (22-30); Chloride 105 mmol/L (98-107); Glucose 81 mg/dL (74-99); Non-African American GFR(CKD) >90 (>60 ml/min/1.73 sqM); Sodium 138 mmol/L (137-145); Total Bilirubin 0.3 mg/dL (0.2-1.3); Total Protein 7.1 g/dL (6.3-8.2)
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
[2023-06-10] MEDS ORDERED: SULFAMETH-TMP DS STARTER PACK 2 TAB BTL PO STA (22:00)
[2023-06-10 22:39] VITALS: BP 105/67; PULSE 70; RESP 18; TEMP 98.3
== END 2023-06-10 22:11 | disposition home or self-care (01) ==
LOC: EC 17:18
DX: R30.0 Dysuria (principal); Z91.040 Latex allergy status; Z91.018 Allergy to other foods; Z88.8 Allergy status to other drugs, medicaments and biological substances
CPT/HCPCS: 36415; 76770; 76830; 80053; 81001; 81025; 85025; 93976; 99284

== ENCOUNTER 2023-06-14 13:44 | Emergency (ER) | payer OTHER ==
[2023-06-14 14:26] VITALS: RESP 18
[2023-06-14] MEDS: IBUPROFEN 600 MG TAB PO STA (15:35)
[2023-06-14] MEDS: LIDOCAINE/EPINEPHR/TETRACAINE 5 ML BOTTLE TOPICAL ONE (15:35)
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
[2023-06-14] MEDS: BACITRACIN OINT 1 EACH PACKET TOPICAL ONE (16:41)
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
[2023-06-14 17:26] VITALS: BP 112/79; PULSE 75; TEMP 98.1
== END 2023-06-14 17:01 | disposition home or self-care (01) ==
LOC: EC 13:44
DX: S50.311A Abrasion of right elbow, initial encounter (principal); S40.211A Abrasion of right shoulder, initial encounter; Z91.040 Latex allergy status; Z88.8 Allergy status to other drugs, medicaments and biological substances; V49.50XA Passenger injured in collision with unspecified motor vehicles in traffic accident, initial encounter; Y92.410 Unspecified street and highway as the place of occurrence of the external cause
CPT/HCPCS: 71046; 99284

== ENCOUNTER 2023-09-22 23:56 | Emergency (ER) | payer OTHER ==
[2023-09-23] MEDS ORDERED: DIPH,PERTUS(ACELL)TETVAC-LF 0.5 ML VIAL IM ONE (02:00)
== END 2023-09-23 03:07 | disposition home or self-care (01) ==
LOC: EC 23:56
DX: R45.851 Suicidal ideations (principal)
CPT/HCPCS: 90715; 96372; 99284

== ENCOUNTER 2023-09-28 14:16 | Emergency (ER) | payer OTHER | END 2023-09-28 17:30 | disposition home or self-care (01) | LOC: EC 14:16 | DX: F41.9 Anxiety disorder, unspecified (principal) | CPT/HCPCS: 93005; 99283 ==

== ENCOUNTER 2024-08-09 23:40 | Emergency (ER) | payer OTHER ==
[2024-08-09 23:45] VITALS: RESP 18; TEMP 98.3
--- NOTE | 2024-08-10 00:36 | ED ---
General Adult HPI - General Chief complaint: Nausea/Vomiting/Diarrhea Stated complaint: Fall head injury Time Seen by Provider: 08/09/24 23:41 Source: police Mode of arrival: EMS - History of Present Illness Initial comments: This patient is a 29-year-old woman who states that she was going up the stairs approximately 3 hours prior when she fell and landed striking her head. She states that she has had a little bit of headache and a little bit of nausea. She was concerned because she became very emotional for short period of time following the fall. She states that that has resolved but she is concerned that it represents concussion. Patient denies other injury. No neck pain, chest, back or other extremity pain Onset/Timin -: hour(s) Location: head Radiation: non-radiation Quality: aching Consistency: constant Improves with: none Worsens with: none Associated Symptoms: nausea/vomiting, other Treatments Prior to Arrival: none - Related Data Previous Rx's Medication Instructions Recorded Vit No.179/Iron/Folic 1 each PO DAILY 30 Days #30 tab 10/21/21 [ Tablet] Fluticasone Propionate [Flonase 1 spray EA NOSTRIL ONCE #9.9 ml 08/20/22 Allergy Relief] Ibuprofen 400 mg PO Q4-6H PRN #30 tablet 08/20/22 guaiFENesin-DM 600/30MG [Mucinex 1 tab PO Q12HR PRN 7 Days #14 tab 08/20/22 Dm] Acetaminophen Tab [Tylenol] 650 mg PO Q6H #30 tab 02/07/23 Ibuprofen [Motrin] 600 mg PO Q8HR PRN #30 tab 02/07/23 Loratadine 10 mg PO DAILY #20 tablet 04/05/23 Sulfamethox-Tmp 800-160Mg [Bactrim 1 each PO Q12HR 5 Days #10 tab 06/10/23 Ds] Bacitracin Zinc Oint 1 applic TOPICAL BID #28 gm 06/14/23 Allergies Allergy/AdvReac Type Severity Reaction Status Date / Time latex Allergy Rash/Hives Verified 06/28/24 21:28 amparo Allergy Anaphylaxis Verified 06/28/24 21:28 diphenhydramine AdvReac Nausea & Verified 06/28/24 21:28 [From Benadryl] Vomiting Review of Systems ROS Statement: Those systems with pertinent positive or pertinent negative responses have been documented in the HPI. ROS Other: All systems not noted in ROS Statement are negative. Constitutional: Denies: fever, chills, weakness Eyes: Denies: eye pain, vision change ENT: Denies: ear pain, epistaxis Respiratory: Denies: cough, dyspnea Cardiovascular: Denies: chest pain, palpitations, syncope Gastrointestinal: Reports: nausea, vomiting. Denies: abdominal pain, diarrhea Genitourinary: Denies: dysuria, hematuria Musculoskeletal: Denies: back pain Skin: Denies: rash Neurological: Reports: headache. Denies: weakness, numbness, confusion, vertigo Psychiatric: Reports: as per HPI, anxiety. Denies: homicidal thoughts, suicidal thoughts Hematological/Lymphatic: Denies: easy bleeding Past Medical History Past Medical History: No Reported History Additional Past Medical History / Comment(s): pancreatis, vertigo, IBS History of Any Multi-Drug Resistant Organisms: None Reported Past Surgical History: No Surgical Hx Reported Past Anesthesia/Blood Transfusion Reactions: No Reported Reaction Past Psychological History: ADD/ADHD, Anxiety, Bipolar, Depression Smoking Status: Vaper Past Alcohol Use History: Occasional Past Drug Use History: None Reported - Past Family History Mother Family Medical History: Unable to Obtain Additional Family Medical History / Comment(s): adopted General Exam General appearance: alert, in no apparent distress Head exam: Present: atraumatic, normocephalic, normal inspection Eye exam: Present: normal appearance, PERRL, EOMI. Absent: scleral icterus, conjunctival injection, nystagmus ENT exam: Present: normal oropharynx, mucous membranes moist, TM's normal bilaterally, normal external ear exam Neck exam: Present: normal inspection, full ROM. Absent: tenderness, meningismus Respiratory exam: Present: normal lung sounds bilaterally. Absent: respiratory distress, wheezes, rales, rhonchi, stridor Cardiovascular Exam: Present: regular rate, normal rhythm, normal heart sounds. Absent: systolic murmur, diastolic murmur, rubs, gallop GI/Abdominal exam: Present: soft. Absent: distended, tenderness, guarding, rebound Extremities exam: Present: normal inspection, normal capillary refill. Absent: pedal edema, calf tenderness Back exam: Present: normal inspection. Absent: CVA tenderness (R), CVA tenderness (L) Neurological exam: Present: alert, oriented X3, CN II-XII intact. Absent: motor sensory deficit Psychiatric exam: Present: normal mood. Absent: homicidal ideation, suicidal ideation Skin exam: Present: warm, dry, intact, normal color. Absent: rash Course Vital Signs 08/09/24 08/10/24 23:41 00:42 Temperature 98.3 F Pulse Rate 67 79 Respiratory 18 18 Rate Blood Pressure 127/82 121/83 O2 Sat by Pulse 100 100 Oximetry Medical Decision Making - Medical Decision Making Patient is a 29-year-old woman here after low mechanism of injury fall. She was concerned because she was quite emotional After the fall. She also had episode of nausea and vomiting. The patient's symptoms have resolved. She declined analgesic here. There is no tenderness at the point of contact. The patient clinically cleared for head injury. She may have mild concussion given the symptoms. Discussed appropriate further care and follow-up as well as return parameters Was pt. sent in by a medical professional or institution (, [facility], MANAGER RISK, urgent care, hospital, or prison...) When possible be specific @ -[No] Did you speak to anyone other than the patient for history (EMS, parent, family, police, friend...)? What history was obtained from this source @ -[No] Did you review nursing and triage notes (agree or disagree)? Why? @ -[I reviewed and agree with nursing and triage notes] Were old charts reviewed (outside hosp., previous admission, EMS record, old EKG, old radiological studies, urgent care reports/EKG's, prison records)? Report findings @ -[No old charts were reviewed] Differential Diagnosis (chest pain, altered mental status, abdominal pain women, abdominal pain men, vaginal bleeding, weakness, fever, dyspnea, syncope, headache, dizziness, GI bleed, back pain, seizure, CVA, palpatations, mental health, musculoskeletal)? @ -[Differential Musculoskeletal Muscular strain, contusion, ligament sprain, fracture, arthritis, septic arthritis, bursitis, cellulitis, muscle spasm, nerve compression, DVT, arterial occlusion, herpes zoster, electrolyte abnormality, tumor.... This is not meant to be in all inclusive list EKG interpreted by me (3pts min.). @ -[As above] X-rays interpreted by me (1pt min.). @ -[None done] CT interpreted by me (1pt min.). @ -[None done] U/S interpreted by me (1pt. min.). @ -[None done] What testing was considered but not performed or refused? (CT, X-rays, U/S, labs)? Why? @ -[CT was considered but the patient's exam not suggestive of serious injury and will attempt to decrease radiation exposure What meds were considered but not given or refused? Why? @ -[None] Did you discuss the management of the patient with other professionals (professionals i.e. , PA, MANAGER RISK, lab, RT, psych nurse, social science instructor, electrical worker, teacher, energy control officer, onsite case manager)? Give summary @ -[No] Was smoking cessation discussed for >3mins.? @ -[No] Was critical care preformed (if so, how long)? @ -[No] Were there social determinants of health that impacted care today? How? (Homelessness, low income, unemployed, alcoholism, drug addiction, transportation, low edu. Level, literacy, decrease access to med. care, [facility], rehab)? @ -[No] Was there de-escalation of care discussed even if they declined (Discuss DNR or withdrawal of care, Hospice)? DNR status @ -[No] What co-morbidities impacted this encounter? (DM, HTN, Smoking, COPD, CAD, Cancer, CVA, ARF, Chemo, Hep., AIDS, mental health diagnosis, sleep apnea, morbid obesity)? @ -[None] Was patient admitted / discharged? Hospital course, mention meds given and route, prescriptions, significant lab abnormalities, going to OR and other pertinent info. @ -[See above Undiagnosed new problem with uncertain prognosis? @ -[No] Drug Therapy requiring intensive monitoring for toxicity (Heparin, Nitro, Insulin, Cardizem)? @ -[No] Were any procedures done? @ -[No] Diagnosis/symptom? @ -Acute fall Acute minor closed head injury Possible mild concussion Acute, or Chronic, or Acute on Chronic? @ -[Acute Uncomplicated (without systemic symptoms) or Complicated (systemic symptoms)? @ -[Uncomplicated Side effects of treatment? @ -[No] Exacerbation, Progression, or Severe Exacerbation? @ -[No] Poses a threat to life or bodily function? How? (Chest pain, [place], MT, pneumonia, PE, COPD, DKA, ARF, appy, cholecystitis, CVA, Diverticulitis, Homicidal, Suicidal, threat to staff... and all critical care pts) @ -[No] All treatments are based on ideal body weight as in ED triage Disposition Clinical Impression: Closed head injury Disposition: HOME SELF-CARE Instructions (If sedation given, give patient instructions): Concussion (ED) Is patient prescribed a controlled substance at d/c from ED?: No Referrals: None,Stated [Primary Care Provider] - 1-2 days
[2024-08-10 00:46] VITALS: BP 121/83; PULSE 79
== END 2024-08-10 00:46 | disposition home or self-care (01) ==
LOC: EC 23:40
DX: S06.0XAA Concussion with loss of consciousness status unknown, initial encounter (principal); F17.290 Nicotine dependence, other tobacco product, uncomplicated; Z91.040 Latex allergy status; Z88.8 Allergy status to other drugs, medicaments and biological substances; X58.XXXA Exposure to other specified factors, initial encounter
CPT/HCPCS: 99284